=== PATIENT | male | born 1945 | race African-American/Black ===

== ENCOUNTER 2022-04-04 10:07 | Inpatient (IN) | payer MEDICARE, MEDICAID ==
[~2022-04-04] VITALS: Ht 172.7 cm; Wt 127.9 kg
[2022-04-04 11:24] LABS: HEMATOCRIT. 36.6 % (42.0-52.0); HEMOGLOBIN. 12.2 g/dL (14.0-18.0); MEAN CORPUSCULAR HEMOGLOBIN 29.8 pg (28.0-32.0); MEAN CORPUSCULAR VOLUME 89.5 fL (80.0-94.0); MEAN PLATELET VOLUME 10.6 fl (7.4-10.4); PLATELET 299 x1000/uL (130-400); RED CELL DISTRIBUTION WIDTH 14.7 % (11.6-14.6)
[2022-04-04 11:30] LABS: CHLORIDE 107 mEq/L (98-107)
[2022-04-04 11:39] LABS: CREATINE KINASE 411 IU/L (39-308)
[2022-04-04 11:45] LABS: PLATELET ESTIMATE NORMAL
[2022-04-04] MEDS ORDERED: ASPIRIN 325MG EC TABLET PO NR (13:00)
[2022-04-04] MEDS ORDERED: NIFEDIPINE XL 60MG TAB PO ONE (13:15)
[2022-04-04] MEDS ORDERED: LOSARTAN POTASSIUM 50 MG TABLET PO ONE (13:15)
[2022-04-04] MEDS ORDERED: IPRATROPIUM/ALBUTEROL 0.5-3(2.5)MG/3ML NEB NEB PRN (16:30)
[2022-04-04] MEDS ORDERED: DIPHENHYDRAMINE 50MG/ML VIAL IV PRN (16:30)
[2022-04-04] MEDS ORDERED: ONDANSETRON HCL 4MG/2ML INJ IV PRN (16:30)
[2022-04-04] MEDS ORDERED: MORPHINE SULFATE 2 MG/ML CPJ (NOT FOR IM USE) IV PRN (16:30)
[2022-04-04] MEDS ORDERED: ACETAMINOPHEN 650MG SUPP PR PRN (16:30)
[2022-04-04] MEDS ORDERED: LORAZEPAM 2MG/ML CPJ IV PRN (16:30)
[2022-04-04] MEDS ORDERED: ONDANSETRON HCL 4MG/2ML INJ IV NR (16:45)
[2022-04-04] MEDS ORDERED: HYDRALAZINE 20MG/ML VIAL IV NR (16:45)
[2022-04-04 18:12] LABS: PROTHROMBIN TIME 10.5 sec (9.6-11.0)
[2022-04-04] MEDS: FAMOTIDINE 20MG/2ML VIAL IV SCH (18:24)
[2022-04-04] MEDS: AMLODIPINE 10MG TABLET PO SCH (18:26)
[2022-04-04] MEDS: ENOXAPARIN 40MG/0.4ML SYR SUBCUT SCH (18:27)
[2022-04-04 18:51] VITALS: BP 157/90
[2022-04-04] MEDS ORDERED: *PATIENT'S OWN MEDICATION STORAGE XX SCH (19:30)
[2022-04-04] MEDS ORDERED: LOSA50TA41 PO (19:49)
[2022-04-04] MEDS ORDERED: ATOR-2 PO (19:49)
[2022-04-04] MEDS ORDERED: HYDR-4001 PO (19:49)
[2022-04-04] MEDS ORDERED: TAMS-11 PO (19:49)
[2022-04-04] MEDS ORDERED: DOCU100T PO (19:49)
[2022-04-04] MEDS ORDERED: FERR325T6 PO (19:49)
[2022-04-04] MEDS ORDERED: NIFE-32 PO (19:49)
[2022-04-04 20:00] VITALS: BP 145/81
[2022-04-04] MEDS: METOPROLOL TARTRATE 25MG TABLET PO SCH (21:00)
[2022-04-04] MEDS: PIPERACILLIN/TAZOBACTAM 3.375 G in DEXTROSE 5% WATER 50 ML IV SCH (21:19)
[2022-04-04] MEDS: DEXT 5%/0.45% NACL 1000ML 1,000 ML IV SCH (21:21)
[2022-04-05] VITALS: BP 163/70
[2022-04-05 00:05] LABS: CREATINE KINASE MB FRACTION 1.5 ng/mL (0.5-3.6)
[2022-04-05 04:00] VITALS: BP 150/76
[2022-04-05] MEDS: DEXT 5%/0.45% NACL 1000ML 1,000 ML IV SCH ×2 (05:50→21:14)
[2022-04-05 08:00] VITALS: BP 154/73
[2022-04-05 08:15] LABS: BASOPHILS % 0.4 % (0.0-2.0); EOSINOPHILS % 0.2 % (0.0-5.0); HEMATOCRIT. 35.3 % (42.0-52.0); HEMOGLOBIN. 11.7 g/dL (14.0-18.0); LYMPHOCYTES % 9.7 % (20.0-50.0); MEAN CORPUSCULAR HEMOGLOBIN 29.8 pg (28.0-32.0); MEAN CORPUSCULAR VOLUME 89.8 fL (80.0-94.0); MEAN PLATELET VOLUME 10.5 fl (7.4-10.4); MONOCYTES % 8.1 % (2.0-8.0); NEUTROPHILS % 81.6 % (40.0-76.0); PLATELET 259 x1000/uL (130-400); RED BLOOD CELL COUNT 3.93 mill/uL (4.7-6.1); RED CELL DISTRIBUTION WIDTH 14.7 % (11.6-14.6)
[2022-04-05] MEDS: AMLODIPINE 10MG TABLET PO SCH (09:00)
[2022-04-05] MEDS: METOPROLOL TARTRATE 25MG TABLET PO SCH ×2 (09:00→21:00)
[2022-04-05] MEDS ORDERED: LOSARTAN POTASSIUM 50 MG TABLET PO SCH (09:00)
[2022-04-05 09:01] LABS: CHLORIDE 110 mEq/L (98-107)
[2022-04-05 09:22] LABS: CREATINE KINASE 250 IU/L (39-308); CREATINE KINASE MB FRACTION 1.1 ng/mL (0.5-3.6); HDL CHOLESTEROL 67 mg/dL (40-59); LDL CHOLESTEROL 134 mg/dL (5-100)
[2022-04-05] MEDS: PIPERACILLIN/TAZOBACTAM 3.375 G in DEXTROSE 5% WATER 50 ML IV SCH ×2 (09:48→21:14)
[2022-04-05] MEDS: FAMOTIDINE 20MG/2ML VIAL IV SCH (09:48)
[2022-04-05 12:00] VITALS: BP 161/84
[2022-04-05] MEDS ORDERED: VANCOMYCIN 1500MG in DEXTROSE 5% WATER 250ML IV NR (15:00)
[2022-04-05 15:21] LABS: CLARITY URINE CLOUDY (CLEAR); COLOR URINE ORANGE (YELLOW); KETONES URINE NEGATIVE (NEGATIVE); LEUKOCYTE ESTERASE URINE 1+ (NEGATIVE); NITRITE URINE NEGATIVE (NEGATIVE); OCCULT BLOOD URINE 3+ (NEGATIVE); PROTEIN URINE 4+ (NEGATIVE); SPECIFIC GRAVITY URINE 1.025 (1.005-1.030); UROBILINOGEN URINE 0.2 E.U./dL (0.2-1.0)
[2022-04-05 16:00] VITALS: BP 186/88
[2022-04-05] MEDS: ENOXAPARIN 40MG/0.4ML SYR SUBCUT SCH (16:48)
[2022-04-05] MEDS: HYDRALAZINE 20MG/ML VIAL IV PRN (16:48)
[2022-04-05 19:01] LABS: CLARITY URINE CLOUDY (CLEAR); COLOR URINE ORANGE (YELLOW); KETONES URINE NEGATIVE (NEGATIVE); LEUKOCYTE ESTERASE URINE 1+ (NEGATIVE); NITRITE URINE NEGATIVE (NEGATIVE); OCCULT BLOOD URINE 3+ (NEGATIVE); PROTEIN URINE 4+ (NEGATIVE); SPECIFIC GRAVITY URINE 1.025 (1.005-1.030); UROBILINOGEN URINE 0.2 E.U./dL (0.2-1.0)
[2022-04-05 20:00] VITALS: BP 184/75
[2022-04-05] MEDS: ATORVASTATIN CALCIUM 20MG TABLET PO SCH (21:00)
[2022-04-06] VITALS: BP 150/64
[2022-04-06 04:00] VITALS: BP 171/83
[2022-04-06] MEDS: HYDRALAZINE 20MG/ML VIAL IV PRN (06:15)
[2022-04-06 08:00] VITALS: BP 177/70
[2022-04-06 08:05] LABS: BASOPHILS % 0.7 % (0.0-2.0); EOSINOPHILS % 1.3 % (0.0-5.0); HEMATOCRIT. 35.3 % (42.0-52.0); HEMOGLOBIN. 11.3 g/dL (14.0-18.0); LYMPHOCYTES % 15.7 % (20.0-50.0); MEAN CORPUSCULAR VOLUME 90.7 fL (80.0-94.0); MEAN PLATELET VOLUME 10.9 fl (7.4-10.4); MONOCYTES % 9.7 % (2.0-8.0); NEUTROPHILS % 72.6 % (40.0-76.0); PLATELET 244 x1000/uL (130-400); RED BLOOD CELL COUNT 3.89 mill/uL (4.7-6.1); RED CELL DISTRIBUTION WIDTH 14.9 % (11.6-14.6)
[2022-04-06] MEDS: FAMOTIDINE 20MG/2ML VIAL IV SCH (08:27)
[2022-04-06] MEDS: AMLODIPINE 10MG TABLET PO SCH (08:27)
[2022-04-06] MEDS: METOPROLOL TARTRATE 25MG TABLET PO SCH (08:27)
[2022-04-06] MEDS: DEXT 5%/0.45% NACL 1000ML 1,000 ML IV SCH ×2 (08:28→21:50)
[2022-04-06] MEDS: PIPERACILLIN/TAZOBACTAM 3.375 G in DEXTROSE 5% WATER 50 ML IV SCH ×2 (08:29→21:44)
[2022-04-06] MEDS ORDERED: LOSARTAN POTASSIUM 50 MG TABLET PO SCH (09:00)
[2022-04-06] MEDS ORDERED: HYDRALAZINE HCL 100MG TABLET PO NR (11:45)
[2022-04-06 12:00] VITALS: BP 144/70
[2022-04-06] MEDS ORDERED: HYDRALAZINE HCL 25MG TABLET PO SCH (14:00)
[2022-04-06] MEDS: HYDRALAZINE HCL 25MG TABLET PO SCH ×2 (14:54→21:44)
[2022-04-06 16:00] VITALS: BP 153/48
[2022-04-06] MEDS: ENOXAPARIN 40MG/0.4ML SYR SUBCUT SCH (17:12)
[2022-04-06 20:00] VITALS: BP 144/58
[2022-04-06] MEDS: ATORVASTATIN CALCIUM 20MG TABLET PO SCH (21:44)
[2022-04-07] VITALS: BP 140/60
[2022-04-07 04:00] VITALS: BP 114/60
[2022-04-07] MEDS: HYDRALAZINE HCL 25MG TABLET PO SCH ×3 (05:24→22:03)
[2022-04-07 06:23] LABS: BASOPHILS % 0.5 % (0.0-2.0); EOSINOPHILS % 0.4 % (0.0-5.0); HEMATOCRIT. 36.7 % (42.0-52.0); MEAN CORPUSCULAR HEMOGLOBIN 29.6 pg (28.0-32.0); MEAN CORPUSCULAR VOLUME 90.3 fL (80.0-94.0); MEAN PLATELET VOLUME 10.8 fl (7.4-10.4); MONOCYTES % 11.1 % (2.0-8.0); PLATELET 279 x1000/uL (130-400); RED BLOOD CELL COUNT 4.06 mill/uL (4.7-6.1); RED CELL DISTRIBUTION WIDTH 14.6 % (11.6-14.6)
[2022-04-07 08:00] VITALS: BP 157/64
[2022-04-07] MEDS: PIPERACILLIN/TAZOBACTAM 3.375 G in DEXTROSE 5% WATER 50 ML IV SCH ×2 (08:34→22:03)
[2022-04-07] MEDS ORDERED: VANCOMYCIN 750MG PMX (XELLIA) 150 ML IV NR (09:00)
[2022-04-07] MEDS: FAMOTIDINE 20MG/2ML VIAL IV SCH (09:30)
[2022-04-07] MEDS: AMLODIPINE 10MG TABLET PO SCH (09:31)
[2022-04-07] MEDS: DEXT 5%/0.45% NACL 1000ML 1,000 ML IV SCH (10:42)
[2022-04-07 12:00] VITALS: BP 172/72
[2022-04-07 16:00] VITALS: BP 153/61
[2022-04-07] MEDS: ENOXAPARIN 40MG/0.4ML SYR SUBCUT SCH (16:41)
[2022-04-07 20:00] VITALS: BP 120/81
[2022-04-07] MEDS: ATORVASTATIN CALCIUM 20MG TABLET PO SCH (22:04)
[2022-04-07] MEDS: DOXAZOSIN MESYLATE 2MG TABLET PO SCH (22:04)
[2022-04-08] VITALS: BP 112/53
[2022-04-08 04:00] VITALS: BP 119/62
[2022-04-08 04:07] LABS: HIV SCREEN 4G Non Reactive (Non Reactive)
[2022-04-08] MEDS: HYDRALAZINE HCL 25MG TABLET PO SCH ×2 (05:25→14:00)
[2022-04-08 06:15] LABS: BASOPHILS % 0.3 % (0.0-2.0); EOSINOPHILS % 0.1 % (0.0-5.0); HEMATOCRIT. 32.8 % (42.0-52.0); HEMOGLOBIN. 10.9 g/dL (14.0-18.0); LYMPHOCYTES % 8.1 % (20.0-50.0); MEAN CORPUSCULAR HEMOGLOBIN 29.8 pg (28.0-32.0); MEAN CORPUSCULAR VOLUME 89.3 fL (80.0-94.0); MEAN PLATELET VOLUME 10.8 fl (7.4-10.4); MONOCYTES % 8.6 % (2.0-8.0); NEUTROPHILS % 82.9 % (40.0-76.0); PLATELET 234 x1000/uL (130-400); RED BLOOD CELL COUNT 3.67 mill/uL (4.7-6.1); RED CELL DISTRIBUTION WIDTH 14.8 % (11.6-14.6)
[2022-04-08 08:00] VITALS: BP 110/58
[2022-04-08] MEDS: AMLODIPINE 10MG TABLET PO SCH (09:00)
[2022-04-08 09:10] LABS: ANTI-NUCLEAR ANTIBODIES DIRECT Negative (Negative)
[2022-04-08] MEDS: FAMOTIDINE 20MG TABLET PO SCH (09:36)
[2022-04-08] MEDS: PIPERACILLIN/TAZOBACTAM 3.375 G in DEXTROSE 5% WATER 50 ML IV SCH ×2 (09:38→20:43)
[2022-04-08 12:00] VITALS: BP 109/59
[2022-04-08 13:07] LABS: A/G RATIO 0.6 (0.7-1.7); ALBUMIN 2.6 g/dL (2.9-4.4); ALPHA-1-GLOBULIN 0.4 g/dL (0.0-0.4); ALPHA-2-GLOBULIN 1.2 g/dL (0.4-1.0); BETA GLOBULIN 1.1 g/dL (0.7-1.3); GAMMA GLOBULINS 1.5 g/dL (0.4-1.8); GLOBULIN TOTAL 4.1 g/dL (2.2-3.9); M-SPIKE 0.8 g/dL (Not Observed); TOTAL PROTEIN SERUM 6.7 g/dL (6.0-8.5)
[2022-04-08 16:00] VITALS: BP 117/79
[2022-04-08 20:00] VITALS: BP 130/61
[2022-04-08] MEDS: DEXT 5%/0.45% NACL 1000ML 1,000 ML IV SCH (20:43)
[2022-04-08] MEDS: DOXAZOSIN MESYLATE 2MG TABLET PO SCH (20:44)
[2022-04-08] MEDS: ATORVASTATIN CALCIUM 20MG TABLET PO SCH (20:44)
[2022-04-08] MEDS: HYDRALAZINE HCL 100MG TABLET PO SCH (23:03)
[2022-04-09] VITALS: BP 145/78
[2022-04-09 04:00] VITALS: BP 139/64
[2022-04-09] MEDS: HYDRALAZINE HCL 100MG TABLET PO SCH ×3 (05:28→20:50)
[2022-04-09 07:08] LABS: BASOPHILS % 0.7 % (0.0-2.0); EOSINOPHILS % 1.6 % (0.0-5.0); HEMATOCRIT. 29.6 % (42.0-52.0); HEMOGLOBIN. 9.8 g/dL (14.0-18.0); LYMPHOCYTES % 13.9 % (20.0-50.0); MEAN CORPUSCULAR HEMOGLOBIN 29.5 pg (28.0-32.0); MEAN CORPUSCULAR VOLUME 89.6 fL (80.0-94.0); MEAN PLATELET VOLUME 10.7 fl (7.4-10.4); MONOCYTES % 13.5 % (2.0-8.0); NEUTROPHILS % 70.3 % (40.0-76.0); PLATELET 216 x1000/uL (130-400)
[2022-04-09 08:00] VITALS: BP 100/64
[2022-04-09] MEDS: AMLODIPINE 10MG TABLET PO SCH (09:04)
[2022-04-09] MEDS: FAMOTIDINE 20MG TABLET PO SCH (09:04)
[2022-04-09 09:06] LABS: GLOMERULAR BASEMENT MEMB AB 4 units (0-20)
[2022-04-09] MEDS: PIPERACILLIN/TAZOBACTAM 3.375 G in DEXTROSE 5% WATER 50 ML IV SCH ×2 (10:50→20:57)
[2022-04-09 12:00] VITALS: BP 113/70
[2022-04-09] MEDS: HYDRALAZINE 20MG/ML VIAL IV PRN ×3 (14:52→15:13)
[2022-04-09 15:09] LABS: ANTI-MYELOPEROXIDASE AB < 9.0 U/mL (0.0-9.0); ANTI-PROTEINASE 3 ABS < 3.5 U/mL (0.0-3.5)
[2022-04-09 16:00] VITALS: BP 118/82
[2022-04-09] MEDS: DEXT 5%/0.45% NACL 1000ML 1,000 ML IV SCH (16:30)
[2022-04-09 20:00] VITALS: BP 117/48
[2022-04-09] MEDS: ATORVASTATIN CALCIUM 20MG TABLET PO SCH (20:57)
[2022-04-09] MEDS: DOXAZOSIN MESYLATE 2MG TABLET PO SCH (20:58)
[2022-04-09] MEDS: AMOXICILLIN/POTASSIUM CLAVULANATE 500/125MG TAB PO SCH (20:58)
[2022-04-10] VITALS: BP 128/56
[2022-04-10 04:00] VITALS: BP 140/62
[2022-04-10] MEDS: HYDRALAZINE HCL 100MG TABLET PO SCH ×3 (05:50→22:02)
[2022-04-10] MEDS: DEXT 5%/0.45% NACL 1000ML 1,000 ML IV SCH ×2 (05:50→17:57)
[2022-04-10 07:15] LABS: HEMATOCRIT. 27.9 % (42.0-52.0); HEMOGLOBIN. 9.4 g/dL (14.0-18.0); MEAN CORPUSCULAR HEMOGLOBIN 29.8 pg (28.0-32.0); MEAN CORPUSCULAR VOLUME 88.5 fL (80.0-94.0); MEAN PLATELET VOLUME 10.5 fl (7.4-10.4); PLATELET 227 x1000/uL (130-400); RED BLOOD CELL COUNT 3.15 mill/uL (4.7-6.1); RED CELL DISTRIBUTION WIDTH 14.9 % (11.6-14.6)
[2022-04-10 08:00] VITALS: BP 120/98
[2022-04-10 08:12] LABS: PLATELET ESTIMATE NORMAL
[2022-04-10] MEDS: AMLODIPINE 10MG TABLET PO SCH (10:05)
[2022-04-10] MEDS: FAMOTIDINE 20MG TABLET PO SCH (10:05)
[2022-04-10] MEDS: AMOXICILLIN/POTASSIUM CLAVULANATE 500/125MG TAB PO SCH (11:44)
[2022-04-10 12:00] VITALS: BP 153/56
[2022-04-10] MEDS ORDERED: LIDOCAINE HCL 1% 10 MG/ML 10ML VIAL ONE (12:32)
[2022-04-10 12:59] LABS: HEPATITIS B SURFACE ANTIGEN NEGATIVE
[2022-04-10 13:10] LABS: CYTOPLASMIC C-ANCA <1:20 titer (Neg:<1:20); PERINUCLEAR P-ANCA <1:20 titer (Neg:<1:20)
[2022-04-10 16:00] VITALS: BP 144/66
[2022-04-10] MEDS: ASPIRIN 81MG TABLET PO SCH (17:56)
[2022-04-10 20:00] VITALS: BP 132/69
[2022-04-10] MEDS: ATORVASTATIN CALCIUM 20MG TABLET PO SCH (22:03)
[2022-04-10] MEDS: DOXAZOSIN MESYLATE 2MG TABLET PO SCH (22:03)
[2022-04-10] MEDS ORDERED: CEFTRIAXONE 2 G in DEXTROSE 5% WATER 50 ML IV SCH (22:30)
[2022-04-10] MEDS ORDERED: VANCOMYCIN 1GM PMX (XELLIA) 200 ML IV NR (23:00)
[2022-04-11] VITALS: BP 157/61
[2022-04-11 04:00] VITALS: BP 126/70
[2022-04-11] MEDS: HYDRALAZINE HCL 100MG TABLET PO SCH ×3 (06:06→21:49)
[2022-04-11 06:27] LABS: BASOPHILS % 0.4 % (0.0-2.0); EOSINOPHILS % 1.6 % (0.0-5.0); HEMATOCRIT. 29.2 % (42.0-52.0); HEMOGLOBIN. 9.7 g/dL (14.0-18.0); LYMPHOCYTES % 11.8 % (20.0-50.0); MEAN CORPUSCULAR HEMOGLOBIN 29.2 pg (28.0-32.0); MEAN CORPUSCULAR VOLUME 88.2 fL (80.0-94.0); MEAN PLATELET VOLUME 10.3 fl (7.4-10.4); MONOCYTES % 14.4 % (2.0-8.0); NEUTROPHILS % 71.8 % (40.0-76.0); PLATELET 204 x1000/uL (130-400); RED BLOOD CELL COUNT 3.31 mill/uL (4.7-6.1); RED CELL DISTRIBUTION WIDTH 14.4 % (11.6-14.6)
[2022-04-11 08:00] VITALS: BP 134/60
[2022-04-11] MEDS: ASPIRIN 81MG TABLET PO SCH (09:00)
[2022-04-11] MEDS: FAMOTIDINE 20MG TABLET PO SCH (09:00)
[2022-04-11] MEDS: AMLODIPINE 10MG TABLET PO SCH (09:00)
[2022-04-11 12:00] VITALS: BP 127/63
[2022-04-11 16:00] VITALS: BP 138/64
[2022-04-11 20:00] VITALS: BP 159/71
[2022-04-11] MEDS: CEFTRIAXONE 2 G in DEXTROSE 5% WATER 50 ML IV SCH (21:46)
[2022-04-11] MEDS: DOXAZOSIN MESYLATE 2MG TABLET PO SCH (21:49)
[2022-04-11] MEDS: ATORVASTATIN CALCIUM 20MG TABLET PO SCH (21:53)
[2022-04-12] VITALS: BP 127/50
[2022-04-12 04:00] VITALS: BP_SYST 151; BP_SYST 159; BP_DIAS 59; BP_DIAS 67
[2022-04-12] MEDS: HYDRALAZINE HCL 100MG TABLET PO SCH ×2 (06:15→14:58)
[2022-04-12 08:00] VITALS: BP 94/60
[2022-04-12 08:41] LABS: HEMATOCRIT. 27.4 % (42.0-52.0); MEAN CORPUSCULAR HEMOGLOBIN 29.3 pg (28.0-32.0); MEAN CORPUSCULAR VOLUME 89.1 fL (80.0-94.0); MEAN PLATELET VOLUME 10.4 fl (7.4-10.4); PLATELET 209 x1000/uL (130-400); RED BLOOD CELL COUNT 3.07 mill/uL (4.7-6.1)
[2022-04-12] MEDS: FAMOTIDINE 20MG TABLET PO SCH (09:41)
[2022-04-12] MEDS: ASPIRIN 81MG TABLET PO SCH (09:41)
[2022-04-12] MEDS: AMLODIPINE 10MG TABLET PO SCH (09:46)
[2022-04-12 10:04] LABS: PLATELET ESTIMATE NORMAL
[2022-04-12 12:00] VITALS: BP 178/75
[2022-04-12] MEDS: DEXT 5%/0.45% NACL 1000ML 1,000 ML IV SCH (15:39)
[2022-04-12 16:00] VITALS: BP 142/100
[2022-04-12] MEDS ORDERED: VANCOMYCIN 750MG PMX (XELLIA) 150 ML IV SCH (17:00)
[2022-04-12 20:00] VITALS: BP 99/81
[2022-04-12] MEDS: CEFTRIAXONE 2 G in DEXTROSE 5% WATER 50 ML IV SCH (20:59)
[2022-04-12] MEDS: ATORVASTATIN CALCIUM 20MG TABLET PO SCH (21:07)
[2022-04-13] VITALS: BP 144/72
[2022-04-13] MEDS: DOXAZOSIN MESYLATE 2MG TABLET PO SCH ×2 (01:04→21:49)
[2022-04-13] MEDS: HYDRALAZINE HCL 100MG TABLET PO SCH ×4 (01:04→21:49)
[2022-04-13 04:00] VITALS: BP 149/70
[2022-04-13 08:00] VITALS: BP 137/61
[2022-04-13 08:28] LABS: HEMATOCRIT. 25.6 % (42.0-52.0); HEMOGLOBIN. 8.5 g/dL (14.0-18.0); MEAN CORPUSCULAR HEMOGLOBIN 29.7 pg (28.0-32.0); MEAN CORPUSCULAR VOLUME 89.5 fL (80.0-94.0); PLATELET 205 x1000/uL (130-400); RED BLOOD CELL COUNT 2.86 mill/uL (4.7-6.1); RED CELL DISTRIBUTION WIDTH 14.9 % (11.6-14.6)
[2022-04-13] MEDS: AMLODIPINE 10MG TABLET PO SCH (08:55)
[2022-04-13] MEDS: ASPIRIN 81MG TABLET PO SCH (08:55)
[2022-04-13] MEDS: FAMOTIDINE 20MG TABLET PO SCH (08:55)
[2022-04-13 09:10] LABS: PLATELET ESTIMATE NORMAL
[2022-04-13 12:00] VITALS: BP 134/58
[2022-04-13] MEDS: DEXT 5%/0.45% NACL 1000ML 1,000 ML IV SCH (13:04)
[2022-04-13 16:00] VITALS: BP 133/60
[2022-04-13] MEDS ORDERED: NA PHOS,M-B/NA PHOS,DI-BA ENEMA 118ML PR PRN (18:00)
[2022-04-13] MEDS ORDERED: BISACODYL 5MG TABLET PO PRN (18:00)
[2022-04-13] MEDS: DOCUSATE SODIUM 100MG CAPSULE PO SCH (18:33)
[2022-04-13 20:00] VITALS: BP 152/75
[2022-04-13] MEDS: CEFTRIAXONE 2 G in DEXTROSE 5% WATER 50 ML IV SCH (21:47)
[2022-04-13] MEDS: ATORVASTATIN CALCIUM 20MG TABLET PO SCH (21:48)
[2022-04-14] VITALS: BP 121/62
[2022-04-14] MEDS: DEXT 5%/0.45% NACL 1000ML 1,000 ML IV SCH ×2 (05:35→16:32)
[2022-04-14] MEDS: HYDRALAZINE HCL 100MG TABLET PO SCH ×3 (05:35→21:02)
[2022-04-14 06:38] LABS: BASOPHILS % 0.7 % (0.0-2.0); EOSINOPHILS % 2.7 % (0.0-5.0); HEMATOCRIT. 26.6 % (42.0-52.0); HEMOGLOBIN. 8.7 g/dL (14.0-18.0); LYMPHOCYTES % 19.4 % (20.0-50.0); MEAN CORPUSCULAR HEMOGLOBIN 29.3 pg (28.0-32.0); MEAN CORPUSCULAR VOLUME 89.4 fL (80.0-94.0); MEAN PLATELET VOLUME 9.8 fl (7.4-10.4); MONOCYTES % 13.2 % (2.0-8.0); PLATELET 208 x1000/uL (130-400); RED BLOOD CELL COUNT 2.97 mill/uL (4.7-6.1)
[2022-04-14 08:00] VITALS: BP 139/67
[2022-04-14] MEDS: ASPIRIN 81MG TABLET PO SCH (08:02)
[2022-04-14] MEDS: DOCUSATE SODIUM 100MG CAPSULE PO SCH ×2 (08:02→16:32)
[2022-04-14] MEDS: AMLODIPINE 10MG TABLET PO SCH (08:02)
[2022-04-14] MEDS: FAMOTIDINE 20MG TABLET PO SCH (08:02)
[2022-04-14 12:00] VITALS: BP 157/67
[2022-04-14 16:00] VITALS: BP 132/75
[2022-04-14 20:00] VITALS: BP 151/77
[2022-04-14] MEDS: CEFTRIAXONE 2 G in DEXTROSE 5% WATER 50 ML IV SCH (20:11)
[2022-04-14] MEDS: ATORVASTATIN CALCIUM 20MG TABLET PO SCH (21:01)
[2022-04-14] MEDS: DOXAZOSIN MESYLATE 2MG TABLET PO SCH (21:02)
[2022-04-15] VITALS: BP 135/67
[2022-04-15 04:00] VITALS: BP 149/73
[2022-04-15] MEDS: DEXT 5%/0.45% NACL 1000ML 1,000 ML IV SCH ×2 (05:44→23:19)
[2022-04-15] MEDS: HYDRALAZINE HCL 100MG TABLET PO SCH ×3 (05:46→21:41)
[2022-04-15 08:00] VITALS: BP 129/55
[2022-04-15] MEDS: DOCUSATE SODIUM 100MG CAPSULE PO SCH ×2 (09:05→16:20)
[2022-04-15] MEDS: FAMOTIDINE 20MG TABLET PO SCH (09:05)
[2022-04-15] MEDS: AMLODIPINE 10MG TABLET PO SCH (09:05)
[2022-04-15] MEDS: ASPIRIN 81MG TABLET PO SCH (09:05)
[2022-04-15 09:38] LABS: BASOPHILS % 0.7 % (0.0-2.0); EOSINOPHILS % 3.5 % (0.0-5.0); HEMATOCRIT. 25.7 % (42.0-52.0); HEMOGLOBIN. 8.4 g/dL (14.0-18.0); LYMPHOCYTES % 16.5 % (20.0-50.0); MEAN CORPUSCULAR HEMOGLOBIN 29.3 pg (28.0-32.0); MEAN CORPUSCULAR VOLUME 89.4 fL (80.0-94.0); MEAN PLATELET VOLUME 9.4 fl (7.4-10.4); MONOCYTES % 14.3 % (2.0-8.0); PLATELET 216 x1000/uL (130-400); RED BLOOD CELL COUNT 2.87 mill/uL (4.7-6.1); RED CELL DISTRIBUTION WIDTH 14.8 % (11.6-14.6)
[2022-04-15 12:00] VITALS: BP 130/56
[2022-04-15 16:00] VITALS: BP 128/54
[2022-04-15 20:00] VITALS: BP 142/72
[2022-04-15] MEDS: DOXAZOSIN MESYLATE 2MG TABLET PO SCH (20:50)
[2022-04-15] MEDS: CEFTRIAXONE 2 G in DEXTROSE 5% WATER 50 ML IV SCH (20:50)
[2022-04-15] MEDS: ATORVASTATIN CALCIUM 20MG TABLET PO SCH (20:51)
[2022-04-15] MEDS ORDERED: VANCOMYCIN 750 MG in DEXT 5% WATER 250 ML IV NR (21:00)
[2022-04-16] VITALS (15 sets, daily range): BP systolic 125–188; BP diastolic 68–93
[2022-04-16] MEDS: HYDRALAZINE HCL 100MG TABLET PO SCH ×4 (05:17→21:15)
[2022-04-16] MEDS ORDERED: LIDOCAINE HCL 1% 10 MG/ML 10ML VIAL ONE ×3 (07:16→14:10)
[2022-04-16] MEDS ORDERED: FENTANYL CITRATE/PF 50MCG/ML 2ML VIAL ONE ×2 (07:17→11:49)
[2022-04-16 08:37] LABS: BASOPHILS % 0.8 % (0.0-2.0); EOSINOPHILS % 2.3 % (0.0-5.0); HEMATOCRIT. 26.7 % (42.0-52.0); HEMOGLOBIN. 8.9 g/dL (14.0-18.0); LYMPHOCYTES % 14.4 % (20.0-50.0); MEAN CORPUSCULAR HEMOGLOBIN 29.5 pg (28.0-32.0); MEAN CORPUSCULAR VOLUME 88.2 fL (80.0-94.0); MEAN PLATELET VOLUME 9.4 fl (7.4-10.4); MONOCYTES % 12.3 % (2.0-8.0); NEUTROPHILS % 70.2 % (40.0-76.0); PLATELET 257 x1000/uL (130-400); RED BLOOD CELL COUNT 3.03 mill/uL (4.7-6.1); RED CELL DISTRIBUTION WIDTH 14.7 % (11.6-14.6)
[2022-04-16] MEDS: AMLODIPINE 10MG TABLET PO SCH (09:02)
[2022-04-16] MEDS: FAMOTIDINE 20MG TABLET PO SCH (09:02)
[2022-04-16] MEDS: DOCUSATE SODIUM 100MG CAPSULE PO SCH ×2 (09:02→17:34)
[2022-04-16] MEDS ORDERED: HEPARIN 1000 UNITS/ML 10ML ONE (12:00)
[2022-04-16] MEDS ORDERED: FENTANYL CITRATE/PF 50MCG/ML 2ML VIAL IV ONE (12:15)
[2022-04-16] MEDS ORDERED: CARVEDILOL 3.125 MG TABLET PO NR (15:45)
[2022-04-16] MEDS: HYDROCODONE/ACETAMINOPHEN 5/325MG TABLET PO PRN (17:35)
[2022-04-16] MEDS: DOXAZOSIN MESYLATE 2MG TABLET PO SCH (20:18)
[2022-04-16] MEDS: ATORVASTATIN CALCIUM 20MG TABLET PO SCH (20:18)
[2022-04-16] MEDS: CEFTRIAXONE 2 G in DEXTROSE 5% WATER 50 ML IV SCH (20:18)
[2022-04-16] MEDS ORDERED: NALOXONE HCL 0.4MG/ML VIAL IV PRN (22:00)
[2022-04-17] VITALS: BP 132/64
[2022-04-17] MEDS: DEXT 5%/0.45% NACL 1000ML 1,000 ML IV SCH ×2 (00:43→23:43)
[2022-04-17 04:00] VITALS: BP 146/81
[2022-04-17] MEDS: HYDRALAZINE HCL 100MG TABLET PO SCH ×2 (05:20→15:25)
[2022-04-17 08:00] VITALS: BP 153/63
[2022-04-17] MEDS: DOCUSATE SODIUM 100MG CAPSULE PO SCH ×2 (08:52→17:31)
[2022-04-17] MEDS: AMLODIPINE 10MG TABLET PO SCH (08:53)
[2022-04-17] MEDS: CARVEDILOL 3.125 MG TABLET PO SCH ×2 (08:53→17:31)
[2022-04-17] MEDS: FAMOTIDINE 20MG TABLET PO SCH (08:53)
[2022-04-17 09:16] LABS: BASOPHILS % 0.7 % (0.0-2.0); EOSINOPHILS % 2.3 % (0.0-5.0); HEMOGLOBIN. 8.9 g/dL (14.0-18.0); LYMPHOCYTES % 9.1 % (20.0-50.0); MEAN CORPUSCULAR HEMOGLOBIN 29.5 pg (28.0-32.0); MEAN PLATELET VOLUME 9.8 fl (7.4-10.4); NEUTROPHILS % 76.9 % (40.0-76.0); PLATELET 273 x1000/uL (130-400); RED BLOOD CELL COUNT 3.03 mill/uL (4.7-6.1); RED CELL DISTRIBUTION WIDTH 14.7 % (11.6-14.6)
[2022-04-17 12:00] VITALS: BP 136/61
[2022-04-17] MEDS: HYDROCODONE/ACETAMINOPHEN 5/325MG TABLET PO PRN ×2 (12:30→21:04)
[2022-04-17 16:00] VITALS: BP 138/63
[2022-04-17] MEDS ORDERED: VANCOMYCIN 750MG PREMIX 150 ML IV NR (16:00)
[2022-04-17 17:46] LABS: CLARITY URINE BLOODY (CLEAR); COLOR URINE BLOODY (YELLOW)
[2022-04-17 17:53] LABS: SPECIFIC GRAVITY URINE 1.016 (1.005-1.030)
[2022-04-17 17:56] LABS: OCCULT BLOOD URINE 4+ (NEGATIVE)
[2022-04-17 18:16] LABS: CREATINE KINASE MB FRACTION 1.7 ng/mL (0.5-3.6)
[2022-04-17 18:36] LABS: HEPATITIS B SURFACE ANTIGEN NEGATIVE
[2022-04-17] MEDS: ATORVASTATIN CALCIUM 20MG TABLET PO SCH (21:04)
[2022-04-17] MEDS: CEFTRIAXONE 2 G in DEXTROSE 5% WATER 50 ML IV SCH (21:04)
[2022-04-17] MEDS: DOXAZOSIN MESYLATE 2MG TABLET PO SCH (23:42)
[2022-04-18] VITALS: BP 122/75
[2022-04-18] MEDS: HYDRALAZINE HCL 100MG TABLET PO SCH ×4 (00:59→20:50)
[2022-04-18 04:00] VITALS: BP 109/60
[2022-04-18] MEDS: HYDROCODONE/ACETAMINOPHEN 5/325MG TABLET PO PRN ×2 (05:34→18:03)
[2022-04-18 07:47] LABS: BASOPHILS % 0.4 % (0.0-2.0); HEMATOCRIT. 24.8 % (42.0-52.0); HEMOGLOBIN. 8.3 g/dL (14.0-18.0); LYMPHOCYTES % 8.2 % (20.0-50.0); MEAN CORPUSCULAR HEMOGLOBIN 29.7 pg (28.0-32.0); MONOCYTES % 10.5 % (2.0-8.0); NEUTROPHILS % 78.9 % (40.0-76.0); PLATELET 244 x1000/uL (130-400); RED BLOOD CELL COUNT 2.79 mill/uL (4.7-6.1); RED CELL DISTRIBUTION WIDTH 14.8 % (11.6-14.6)
[2022-04-18 08:00] VITALS: BP 133/83
[2022-04-18] MEDS: AMLODIPINE 10MG TABLET PO SCH (08:54)
[2022-04-18] MEDS: FAMOTIDINE 20MG TABLET PO SCH (08:54)
[2022-04-18] MEDS: CARVEDILOL 3.125 MG TABLET PO SCH ×2 (08:54→16:38)
[2022-04-18] MEDS: DOCUSATE SODIUM 100MG CAPSULE PO SCH ×2 (08:55→16:37)
[2022-04-18 12:00] VITALS: BP 118/50
[2022-04-18 16:00] VITALS: BP 125/76
[2022-04-18 20:00] VITALS: BP 95/49
[2022-04-18] MEDS: ATORVASTATIN CALCIUM 20MG TABLET PO SCH (20:49)
[2022-04-18] MEDS: CEFTRIAXONE 2 G in DEXTROSE 5% WATER 50 ML IV SCH (20:49)
[2022-04-18] MEDS: ALLOPURINOL 100 MG TABLET PO SCH (20:49)
[2022-04-18] MEDS: DOXAZOSIN MESYLATE 2MG TABLET PO SCH (20:50)
[2022-04-18] MEDS: DEXT 5%/0.45% NACL 1000ML 1,000 ML IV SCH (20:51)
[2022-04-19] VITALS (9 sets, daily range): BP systolic 109–150; BP diastolic 54–87
[2022-04-19] MEDS: HYDRALAZINE HCL 100MG TABLET PO SCH ×3 (05:01→21:07)
[2022-04-19 07:49] LABS: BASOPHILS % 0.8 % (0.0-2.0); HEMATOCRIT. 22.6 % (42.0-52.0); HEMOGLOBIN. 7.5 g/dL (14.0-18.0); LYMPHOCYTES % 15.5 % (20.0-50.0); MEAN CORPUSCULAR HEMOGLOBIN 29.3 pg (28.0-32.0); MEAN PLATELET VOLUME 8.7 fl (7.4-10.4); MONOCYTES % 14.5 % (2.0-8.0); NEUTROPHILS % 66.2 % (40.0-76.0); PLATELET 240 x1000/uL (130-400); RED BLOOD CELL COUNT 2.54 mill/uL (4.7-6.1); RED CELL DISTRIBUTION WIDTH 14.7 % (11.6-14.6)
[2022-04-19] MEDS: AMLODIPINE 10MG TABLET PO SCH (09:00)
[2022-04-19] MEDS: CARVEDILOL 3.125 MG TABLET PO SCH ×2 (09:00→17:23)
[2022-04-19] MEDS: DOCUSATE SODIUM 100MG CAPSULE PO SCH ×2 (09:20→17:23)
[2022-04-19] MEDS: ALLOPURINOL 100 MG TABLET PO SCH (09:20)
[2022-04-19] MEDS: FAMOTIDINE 20MG TABLET PO SCH (09:20)
[2022-04-19] MEDS: CEFTRIAXONE 2 G in DEXTROSE 5% WATER 50 ML IV SCH (20:00)
[2022-04-19] MEDS: EPOETIN ALFA 10000UNITS/ML VIAL SUBCUT SCH (21:00)
[2022-04-19] MEDS: DOXAZOSIN MESYLATE 2MG TABLET PO SCH (21:07)
[2022-04-19] MEDS: ATORVASTATIN CALCIUM 20MG TABLET PO SCH (21:07)
[2022-04-19] MEDS ORDERED: VANCOMYCIN 750MG PREMIX 150 ML IV NR (22:00)
[2022-04-20] VITALS: BP 160/64
[2022-04-20] MEDS: DEXT 5%/0.45% NACL 1000ML 1,000 ML IV SCH
[2022-04-20 04:00] VITALS: BP 155/80
[2022-04-20] MEDS: HYDRALAZINE HCL 100MG TABLET PO SCH ×3 (05:56→20:36)
[2022-04-20 07:28] LABS: BASOPHILS % 0.8 % (0.0-2.0); HEMOGLOBIN. 8.7 g/dL (14.0-18.0); LYMPHOCYTES % 15.8 % (20.0-50.0); MEAN CORPUSCULAR HEMOGLOBIN 29.6 pg (28.0-32.0); MEAN CORPUSCULAR VOLUME 88.7 fL (80.0-94.0); MEAN PLATELET VOLUME 8.7 fl (7.4-10.4); MONOCYTES % 14.8 % (2.0-8.0); NEUTROPHILS % 65.6 % (40.0-76.0); PLATELET 247 x1000/uL (130-400); RED BLOOD CELL COUNT 2.93 mill/uL (4.7-6.1)
[2022-04-20] MEDS: FAMOTIDINE 20MG TABLET PO SCH (09:46)
[2022-04-20] MEDS: DOCUSATE SODIUM 100MG CAPSULE PO SCH ×2 (09:46→17:00)
[2022-04-20] MEDS: ALLOPURINOL 100 MG TABLET PO SCH (09:46)
[2022-04-20] MEDS: AMLODIPINE 10MG TABLET PO SCH (09:50)
[2022-04-20] MEDS: CARVEDILOL 3.125 MG TABLET PO SCH ×2 (09:51→18:45)
[2022-04-20] MEDS: HYDROCODONE/ACETAMINOPHEN 5/325MG TABLET PO PRN (09:52)
[2022-04-20] MEDS ORDERED: LEVOFLOXACIN 500MG PREMIX 100 ML IV NR (16:00)
[2022-04-20 20:00] VITALS: BP 118/70
[2022-04-20] MEDS: ATORVASTATIN CALCIUM 20MG TABLET PO SCH (20:36)
[2022-04-20] MEDS: DOXAZOSIN MESYLATE 2MG TABLET PO SCH (20:37)
[2022-04-21] VITALS: BP 130/88
[2022-04-21] MEDS: DEXT 5%/0.45% NACL 1000ML 1,000 ML IV SCH
[2022-04-21 04:00] VITALS: BP 130/73
[2022-04-21] MEDS: HYDRALAZINE HCL 100MG TABLET PO SCH ×3 (06:01→21:33)
[2022-04-21 08:00] VITALS: BP 144/62
[2022-04-21 08:07] LABS: BASOPHILS % 0.8 % (0.0-2.0); EOSINOPHILS % 2.6 % (0.0-5.0); HEMOGLOBIN. 8.6 g/dL (14.0-18.0); LYMPHOCYTES % 16.1 % (20.0-50.0); MEAN CORPUSCULAR HEMOGLOBIN 29.4 pg (28.0-32.0); MEAN CORPUSCULAR VOLUME 89.1 fL (80.0-94.0); MONOCYTES % 11.9 % (2.0-8.0); NEUTROPHILS % 68.6 % (40.0-76.0); PLATELET 250 x1000/uL (130-400); RED BLOOD CELL COUNT 2.92 mill/uL (4.7-6.1); RED CELL DISTRIBUTION WIDTH 15.4 % (11.6-14.6)
[2022-04-21 08:19] LABS: CHLORIDE 112 mEq/L (98-107)
[2022-04-21] MEDS: DOCUSATE SODIUM 100MG CAPSULE PO SCH ×2 (10:03→18:30)
[2022-04-21] MEDS: CARVEDILOL 3.125 MG TABLET PO SCH ×2 (10:03→17:00)
[2022-04-21] MEDS: FAMOTIDINE 20MG TABLET PO SCH (10:03)
[2022-04-21] MEDS: AMLODIPINE 10MG TABLET PO SCH (10:03)
[2022-04-21] MEDS: ALLOPURINOL 100 MG TABLET PO SCH (10:04)
[2022-04-21 12:00] VITALS: BP 137/67
[2022-04-21] MEDS ORDERED: VANCOMYCIN 500 MG in DEXT 5% WATER 100 ML IV SCH (12:00)
[2022-04-21 16:00] VITALS: BP 111/75
[2022-04-21 20:00] VITALS: BP 127/73
[2022-04-21] MEDS: DOXAZOSIN MESYLATE 2MG TABLET PO SCH (21:33)
[2022-04-21] MEDS: ATORVASTATIN CALCIUM 20MG TABLET PO SCH (21:34)
[2022-04-22] VITALS (7 sets, daily range): BP systolic 114–173; BP diastolic 60–83
[2022-04-22] MEDS: DEXT 5%/0.45% NACL 1000ML 1,000 ML IV SCH (00:09)
[2022-04-22] MEDS: HYDRALAZINE HCL 100MG TABLET PO SCH ×4 (06:30→21:03)
[2022-04-22 07:41] LABS: BASOPHILS % 0.7 % (0.0-2.0); EOSINOPHILS % 2.9 % (0.0-5.0); HEMATOCRIT. 25.7 % (42.0-52.0); HEMOGLOBIN. 8.4 g/dL (14.0-18.0); LYMPHOCYTES % 17.4 % (20.0-50.0); MEAN CORPUSCULAR HEMOGLOBIN 28.9 pg (28.0-32.0); MEAN CORPUSCULAR VOLUME 88.7 fL (80.0-94.0); MONOCYTES % 12.6 % (2.0-8.0); NEUTROPHILS % 66.4 % (40.0-76.0); PLATELET 260 x1000/uL (130-400); RED CELL DISTRIBUTION WIDTH 15.2 % (11.6-14.6)
[2022-04-22] MEDS: DOCUSATE SODIUM 100MG CAPSULE PO SCH ×2 (09:02→18:03)
[2022-04-22] MEDS: CARVEDILOL 3.125 MG TABLET PO SCH ×2 (09:02→18:03)
[2022-04-22] MEDS: ALLOPURINOL 100 MG TABLET PO SCH (09:02)
[2022-04-22] MEDS: FAMOTIDINE 20MG TABLET PO SCH (09:02)
[2022-04-22] MEDS: AMLODIPINE 10MG TABLET PO SCH (09:03)
[2022-04-22] MEDS ORDERED: LEVOFLOXACIN 250MG PREMIX 50 ML IV SCH (11:00)
[2022-04-22] MEDS ORDERED: CEFTRIAXONE 2 G PREMIX 50 ML IV SCH (12:45)
[2022-04-22] MEDS: CEFTRIAXONE 2 G in DEXTROSE 5% WATER 50 ML IV SCH (16:38)
[2022-04-22] MEDS: ATORVASTATIN CALCIUM 20MG TABLET PO SCH (20:48)
[2022-04-22] MEDS: DOXAZOSIN MESYLATE 2MG TABLET PO SCH (20:48)
[2022-04-22] MEDS: EPOETIN ALFA 10000UNITS/ML VIAL SUBCUT SCH (20:49)
[2022-04-23] VITALS: BP 128/53
[2022-04-23] MEDS: DEXT 5%/0.45% NACL 1000ML 1,000 ML IV SCH
[2022-04-23 04:00] VITALS: BP 123/59
[2022-04-23] MEDS: HYDRALAZINE HCL 100MG TABLET PO SCH ×3 (06:00→22:08)
[2022-04-23 07:26] LABS: BASOPHILS % 0.5 % (0.0-2.0); HEMATOCRIT. 25.5 % (42.0-52.0); HEMOGLOBIN. 8.4 g/dL (14.0-18.0); LYMPHOCYTES % 15.7 % (20.0-50.0); MEAN CORPUSCULAR HEMOGLOBIN 29.1 pg (28.0-32.0); MEAN CORPUSCULAR VOLUME 88.5 fL (80.0-94.0); MEAN PLATELET VOLUME 9.2 fl (7.4-10.4); MONOCYTES % 11.7 % (2.0-8.0); NEUTROPHILS % 70.1 % (40.0-76.0); PLATELET 243 x1000/uL (130-400); RED BLOOD CELL COUNT 2.88 mill/uL (4.7-6.1); RED CELL DISTRIBUTION WIDTH 14.8 % (11.6-14.6)
[2022-04-23 08:00] VITALS: BP 133/56
[2022-04-23] MEDS: ALLOPURINOL 100 MG TABLET PO SCH (10:32)
[2022-04-23] MEDS: AMLODIPINE 10MG TABLET PO SCH (10:32)
[2022-04-23] MEDS: CARVEDILOL 3.125 MG TABLET PO SCH ×2 (10:32→21:01)
[2022-04-23] MEDS: DOCUSATE SODIUM 100MG CAPSULE PO SCH ×2 (10:32→17:00)
[2022-04-23] MEDS: FAMOTIDINE 20MG TABLET PO SCH (10:33)
[2022-04-23 12:00] VITALS: BP 135/64
[2022-04-23] MEDS: CEFTRIAXONE 2 G in DEXTROSE 5% WATER 50 ML IV SCH (12:45)
[2022-04-23 16:00] VITALS: BP 139/58
[2022-04-23 20:00] VITALS: BP 133/66
[2022-04-23 20:40] LABS: HEPATITIS B SURFACE ANTIGEN NEGATIVE
[2022-04-23] MEDS: ATORVASTATIN CALCIUM 20MG TABLET PO SCH (21:00)
[2022-04-23] MEDS: DOXAZOSIN MESYLATE 2MG TABLET PO SCH (21:01)
[2022-04-24] VITALS: BP 119/60
[2022-04-24 04:00] VITALS: BP 138/67
[2022-04-24] MEDS: HYDRALAZINE HCL 100MG TABLET PO SCH ×3 (06:53→22:00)
[2022-04-24 07:26] LABS: EOSINOPHILS % 2.5 % (0.0-5.0); HEMATOCRIT. 25.2 % (42.0-52.0); HEMOGLOBIN. 8.5 g/dL (14.0-18.0); LYMPHOCYTES % 19.3 % (20.0-50.0); MEAN CORPUSCULAR HEMOGLOBIN 29.8 pg (28.0-32.0); MEAN CORPUSCULAR VOLUME 88.6 fL (80.0-94.0); MONOCYTES % 12.9 % (2.0-8.0); NEUTROPHILS % 64.3 % (40.0-76.0); PLATELET 241 x1000/uL (130-400); RED BLOOD CELL COUNT 2.84 mill/uL (4.7-6.1); RED CELL DISTRIBUTION WIDTH 15.4 % (11.6-14.6)
[2022-04-24 08:00] VITALS: BP 127/86
[2022-04-24] MEDS: CARVEDILOL 3.125 MG TABLET PO SCH ×2 (08:40→21:00)
[2022-04-24] MEDS: AMLODIPINE 10MG TABLET PO SCH (08:40)
[2022-04-24] MEDS: DOCUSATE SODIUM 100MG CAPSULE PO SCH ×2 (08:40→18:07)
[2022-04-24] MEDS: ASPIRIN 81MG TABLET PO SCH (08:40)
[2022-04-24] MEDS: ALLOPURINOL 100 MG TABLET PO SCH (08:40)
[2022-04-24] MEDS: FAMOTIDINE 20MG TABLET PO SCH (08:40)
[2022-04-24 12:00] VITALS: BP 118/79
[2022-04-24] MEDS ORDERED: VANCOMYCIN 500MG PREMIX 100 ML IV NR (12:00)
[2022-04-24 16:00] VITALS: BP 124/65
[2022-04-24] MEDS ORDERED: VANCOMYCIN 500 MG in DEXT 5% WATER 100 ML IV NR (16:00)
[2022-04-24] MEDS: HYDROCODONE/ACETAMINOPHEN 5/325MG TABLET PO PRN (18:08)
[2022-04-24] MEDS: CEFTRIAXONE 2 G in DEXTROSE 5% WATER 50 ML IV SCH (18:08)
[2022-04-24 20:00] VITALS: BP 128/76
[2022-04-24] MEDS: DOXAZOSIN MESYLATE 2MG TABLET PO SCH (21:00)
[2022-04-24] MEDS: ATORVASTATIN CALCIUM 20MG TABLET PO SCH (22:16)
[2022-04-25] VITALS: BP 149/78
[2022-04-25] MEDS: EPOETIN ALFA 10000UNITS/ML VIAL SUBCUT SCH (00:37)
[2022-04-25 04:00] VITALS: BP 145/76
[2022-04-25] MEDS: HYDRALAZINE HCL 100MG TABLET PO SCH ×3 (05:18→21:38)
[2022-04-25 07:04] LABS: BASOPHILS % 0.8 % (0.0-2.0); EOSINOPHILS % 3.6 % (0.0-5.0); HEMATOCRIT. 24.7 % (42.0-52.0); HEMOGLOBIN. 8.2 g/dL (14.0-18.0); LYMPHOCYTES % 19.1 % (20.0-50.0); MEAN CORPUSCULAR HEMOGLOBIN 29.4 pg (28.0-32.0); MEAN CORPUSCULAR VOLUME 88.8 fL (80.0-94.0); MEAN PLATELET VOLUME 8.8 fl (7.4-10.4); MONOCYTES % 13.8 % (2.0-8.0); NEUTROPHILS % 62.7 % (40.0-76.0); PLATELET 231 x1000/uL (130-400); RED BLOOD CELL COUNT 2.78 mill/uL (4.7-6.1); RED CELL DISTRIBUTION WIDTH 15.1 % (11.6-14.6)
[2022-04-25 08:00] VITALS: BP 120/63
[2022-04-25] MEDS: FAMOTIDINE 20MG TABLET PO SCH (09:18)
[2022-04-25] MEDS: ASPIRIN 81MG TABLET PO SCH (09:18)
[2022-04-25] MEDS: ALLOPURINOL 100 MG TABLET PO SCH (09:18)
[2022-04-25] MEDS: DOCUSATE SODIUM 100MG CAPSULE PO SCH ×2 (09:18→17:39)
[2022-04-25] MEDS: CARVEDILOL 3.125 MG TABLET PO SCH ×2 (09:21→21:38)
[2022-04-25] MEDS: AMLODIPINE 10MG TABLET PO SCH (09:22)
[2022-04-25 12:00] VITALS: BP 129/60
[2022-04-25] MEDS: CEFTRIAXONE 2 G in DEXTROSE 5% WATER 50 ML IV SCH (14:01)
[2022-04-25 16:00] VITALS: BP 120/62
[2022-04-25 20:00] VITALS: BP 149/77
[2022-04-25] MEDS ORDERED: NALOXONE HCL 0.4MG/ML VIAL IV PRN (20:45)
[2022-04-25] MEDS: ATORVASTATIN CALCIUM 20MG TABLET PO SCH (21:38)
[2022-04-25] MEDS: DOXAZOSIN MESYLATE 2MG TABLET PO SCH (21:38)
[2022-04-26] VITALS: BP 142/79
[2022-04-26 04:00] VITALS: BP 141/66
[2022-04-26] MEDS: HYDRALAZINE HCL 100MG TABLET PO SCH ×3 (06:42→21:30)
[2022-04-26 08:00] VITALS: BP 138/78
[2022-04-26] MEDS: FAMOTIDINE 20MG TABLET PO SCH (09:56)
[2022-04-26] MEDS: ALLOPURINOL 100 MG TABLET PO SCH (09:56)
[2022-04-26] MEDS: CARVEDILOL 3.125 MG TABLET PO SCH ×2 (09:56→21:30)
[2022-04-26] MEDS: AMLODIPINE 10MG TABLET PO SCH (09:56)
[2022-04-26] MEDS: ASPIRIN 81MG TABLET PO SCH (09:56)
[2022-04-26] MEDS: DOCUSATE SODIUM 100MG CAPSULE PO SCH ×2 (09:57→16:46)
[2022-04-26 11:29] LABS: BASOPHILS % 0.8 % (0.0-2.0); EOSINOPHILS % 3.5 % (0.0-5.0); LYMPHOCYTES % 16.8 % (20.0-50.0); MEAN CORPUSCULAR HEMOGLOBIN 28.9 pg (28.0-32.0); MEAN CORPUSCULAR VOLUME 88.1 fL (80.0-94.0); MEAN PLATELET VOLUME 9.2 fl (7.4-10.4); MONOCYTES % 9.6 % (2.0-8.0); NEUTROPHILS % 69.3 % (40.0-76.0); PLATELET 283 x1000/uL (130-400); RED CELL DISTRIBUTION WIDTH 14.9 % (11.6-14.6)
[2022-04-26 11:54] LABS: HEMATOCRIT. 29.1 % (42.0-52.0); HEMOGLOBIN. 9.5 g/dL (14.0-18.0)
[2022-04-26 12:00] VITALS: BP 128/88
[2022-04-26] MEDS: CEFTRIAXONE 2 G in DEXTROSE 5% WATER 50 ML IV SCH (13:54)
[2022-04-26 16:00] VITALS: BP 116/74
[2022-04-26 20:00] VITALS: BP 142/73
[2022-04-26] MEDS: ATORVASTATIN CALCIUM 20MG TABLET PO SCH (21:29)
[2022-04-26] MEDS: DOXAZOSIN MESYLATE 2MG TABLET PO SCH (21:30)
[2022-04-26] MEDS: EPOETIN ALFA 10000UNITS/ML VIAL SUBCUT SCH (21:31)
[2022-04-27] VITALS: BP 135/63
[2022-04-27 04:00] VITALS: BP 110/71
[2022-04-27] MEDS: HYDRALAZINE HCL 100MG TABLET PO SCH ×3 (06:00→22:16)
[2022-04-27 06:19] LABS: BASOPHILS % 0.7 % (0.0-2.0); HEMATOCRIT. 24.6 % (42.0-52.0); HEMOGLOBIN. 8.1 g/dL (14.0-18.0); LYMPHOCYTES % 19.2 % (20.0-50.0); MEAN CORPUSCULAR HEMOGLOBIN 29.1 pg (28.0-32.0); MEAN CORPUSCULAR VOLUME 88.7 fL (80.0-94.0); MONOCYTES % 13.1 % (2.0-8.0); PLATELET 262 x1000/uL (130-400); RED BLOOD CELL COUNT 2.77 mill/uL (4.7-6.1)
[2022-04-27 08:00] VITALS: BP 136/61
[2022-04-27] MEDS: DOCUSATE SODIUM 100MG CAPSULE PO SCH ×2 (09:37→18:15)
[2022-04-27] MEDS: AMLODIPINE 10MG TABLET PO SCH (09:37)
[2022-04-27] MEDS: CARVEDILOL 3.125 MG TABLET PO SCH ×2 (09:37→22:16)
[2022-04-27] MEDS: ASPIRIN 81MG TABLET PO SCH (09:37)
[2022-04-27] MEDS: ALLOPURINOL 100 MG TABLET PO SCH (09:37)
[2022-04-27] MEDS: FAMOTIDINE 20MG TABLET PO SCH (09:37)
[2022-04-27 12:00] VITALS: BP 126/58
[2022-04-27] MEDS ORDERED: VANCOMYCIN 1GM PMX (XELLIA) 200 ML IV SCH (13:00)
[2022-04-27] MEDS: CEFTRIAXONE 2 G in DEXTROSE 5% WATER 50 ML IV SCH (13:30)
[2022-04-27 16:00] VITALS: BP 109/67
[2022-04-27 20:00] VITALS: BP 147/70
[2022-04-27 20:52] LABS: HEPATITIS B SURFACE ANTIGEN NEGATIVE
[2022-04-27] MEDS: ATORVASTATIN CALCIUM 20MG TABLET PO SCH (22:17)
[2022-04-27] MEDS: DOXAZOSIN MESYLATE 2MG TABLET PO SCH (22:17)
[2022-04-28] VITALS: BP 146/70
[2022-04-28 04:00] VITALS: BP 138/68
[2022-04-28] MEDS: HYDRALAZINE HCL 100MG TABLET PO SCH ×3 (05:39→21:46)
[2022-04-28 08:00] VITALS: BP_SYST 136; BP_SYST 141; BP_DIAS 67; BP_DIAS 72
[2022-04-28] MEDS: ASPIRIN 81MG TABLET PO SCH (08:53)
[2022-04-28] MEDS: CARVEDILOL 3.125 MG TABLET PO SCH ×2 (08:53→21:46)
[2022-04-28] MEDS: FAMOTIDINE 20MG TABLET PO SCH (08:53)
[2022-04-28] MEDS: DOCUSATE SODIUM 100MG CAPSULE PO SCH ×2 (08:53→17:10)
[2022-04-28] MEDS: ALLOPURINOL 100 MG TABLET PO SCH (08:53)
[2022-04-28] MEDS: AMLODIPINE 10MG TABLET PO SCH (08:54)
[2022-04-28 12:00] VITALS: BP 138/85
[2022-04-28] MEDS: CEFTRIAXONE 2 G in DEXTROSE 5% WATER 50 ML IV SCH (14:27)
[2022-04-28 16:01] VITALS: BP 142/70
[2022-04-28 20:00] VITALS: BP 152/81
[2022-04-28] MEDS: ATORVASTATIN CALCIUM 20MG TABLET PO SCH (21:45)
[2022-04-28] MEDS: DOXAZOSIN MESYLATE 2MG TABLET PO SCH (21:46)
[2022-04-29] VITALS: BP 151/58
[2022-04-29 04:00] VITALS: BP 144/81
[2022-04-29] MEDS: HYDRALAZINE HCL 100MG TABLET PO SCH ×3 (05:08→22:00)
[2022-04-29 07:25] LABS: HEMATOCRIT. 27.3 % (42.0-52.0); HEMOGLOBIN. 8.9 g/dL (14.0-18.0); MEAN CORPUSCULAR HEMOGLOBIN 29.1 pg (28.0-32.0); MEAN CORPUSCULAR VOLUME 88.8 fL (80.0-94.0); MEAN PLATELET VOLUME 9.1 fl (7.4-10.4); PLATELET 261 x1000/uL (130-400); RED BLOOD CELL COUNT 3.07 mill/uL (4.7-6.1); RED CELL DISTRIBUTION WIDTH 15.3 % (11.6-14.6)
[2022-04-29 08:00] VITALS: BP 116/73
[2022-04-29] MEDS: AMLODIPINE 10MG TABLET PO SCH (09:59)
[2022-04-29] MEDS: DOCUSATE SODIUM 100MG CAPSULE PO SCH ×2 (09:59→16:59)
[2022-04-29] MEDS: FAMOTIDINE 20MG TABLET PO SCH (10:00)
[2022-04-29] MEDS: ALLOPURINOL 100 MG TABLET PO SCH (10:00)
[2022-04-29] MEDS: ASPIRIN 81MG TABLET PO SCH (10:00)
[2022-04-29] MEDS: CARVEDILOL 3.125 MG TABLET PO SCH ×2 (10:00→21:00)
[2022-04-29] MEDS ORDERED: VANCOMYCIN 750MG PREMIX 150 ML IV NR (12:00)
[2022-04-29] MEDS ORDERED: HYDRALAZINE 10 MG in SODIUM CHLORIDE 0.9% 49.5 ML IV PRN (12:45)
[2022-04-29 15:03] LABS: PLATELET ESTIMATE NORMAL
[2022-04-29] MEDS: HYDROCODONE/ACETAMINOPHEN 5/325MG TABLET PO PRN (15:45)
[2022-04-29 16:00] VITALS: BP 142/71
[2022-04-29] MEDS ORDERED: GUAIFENESIN 200MG/10ML SUGAR FREE UDC PO PRN (16:45)
[2022-04-29] MEDS: CEFTRIAXONE 2 G in DEXTROSE 5% WATER 50 ML IV SCH (16:59)
[2022-04-29 20:00] VITALS: BP 141/65
[2022-04-29] MEDS: ATORVASTATIN CALCIUM 20MG TABLET PO SCH (21:00)
[2022-04-29] MEDS ORDERED: EPOETIN ALFA-EPBX 10,000 UNIT/ML VIAL SUBCUT SCH (21:00)
[2022-04-29] MEDS: DOXAZOSIN MESYLATE 2MG TABLET PO SCH (21:00)
[2022-04-30] VITALS: BP 105/75
[2022-04-30 04:00] VITALS: BP 166/82
[2022-04-30] MEDS: HYDRALAZINE HCL 100MG TABLET PO SCH ×3 (07:16→22:04)
[2022-04-30 08:00] VITALS: BP 148/66
[2022-04-30] MEDS: CARVEDILOL 3.125 MG TABLET PO SCH ×2 (09:19→22:03)
[2022-04-30] MEDS: ASPIRIN 81MG TABLET PO SCH (09:19)
[2022-04-30] MEDS: ALLOPURINOL 100 MG TABLET PO SCH (09:20)
[2022-04-30] MEDS: DOCUSATE SODIUM 100MG CAPSULE PO SCH ×2 (09:20→17:41)
[2022-04-30] MEDS: AMLODIPINE 10MG TABLET PO SCH (09:20)
[2022-04-30] MEDS: FAMOTIDINE 20MG TABLET PO SCH (09:20)
[2022-04-30 12:00] VITALS: BP 146/74
[2022-04-30] MEDS ORDERED: NALOXONE HCL 0.4MG/ML VIAL IV PRN (14:15)
[2022-04-30] MEDS: DULOXETINE HCL 20MG DR CAPSULE PO SCH (15:27)
[2022-04-30] MEDS: CEFTRIAXONE 2 G in DEXTROSE 5% WATER 50 ML IV SCH (15:28)
[2022-04-30 16:00] VITALS: BP 155/69
[2022-04-30 20:00] VITALS: BP 144/66
[2022-04-30] MEDS: ATORVASTATIN CALCIUM 20MG TABLET PO SCH (22:03)
[2022-05-01] VITALS: BP 113/50
[2022-05-01] MEDS: DOXAZOSIN MESYLATE 2MG TABLET PO SCH (00:27)
[2022-05-01 04:00] VITALS: BP 139/76
[2022-05-01 06:36] LABS: BASOPHILS % 0.9 % (0.0-2.0); EOSINOPHILS % 3.6 % (0.0-5.0); HEMATOCRIT. 27.1 % (42.0-52.0); HEMOGLOBIN. 8.8 g/dL (14.0-18.0); LYMPHOCYTES % 18.2 % (20.0-50.0); MEAN CORPUSCULAR HEMOGLOBIN 28.9 pg (28.0-32.0); MEAN CORPUSCULAR VOLUME 89.2 fL (80.0-94.0); MEAN PLATELET VOLUME 8.9 fl (7.4-10.4); MONOCYTES % 11.4 % (2.0-8.0); NEUTROPHILS % 65.9 % (40.0-76.0); PLATELET 304 x1000/uL (130-400); RED BLOOD CELL COUNT 3.04 mill/uL (4.7-6.1); RED CELL DISTRIBUTION WIDTH 15.8 % (11.6-14.6)
[2022-05-01] MEDS: HYDRALAZINE HCL 100MG TABLET PO SCH ×2 (06:47→12:57)
[2022-05-01 07:36] LABS: VITAMIN B12 SERUM 513 pg/mL (211-911)
[2022-05-01 08:00] VITALS: BP 138/76
[2022-05-01] MEDS: ASPIRIN 81MG TABLET PO SCH (09:26)
[2022-05-01] MEDS: DULOXETINE HCL 20MG DR CAPSULE PO SCH (09:26)
[2022-05-01] MEDS: DOCUSATE SODIUM 100MG CAPSULE PO SCH ×2 (09:26→17:00)
[2022-05-01] MEDS: FAMOTIDINE 20MG TABLET PO SCH (09:26)
[2022-05-01] MEDS: ALLOPURINOL 100 MG TABLET PO SCH (09:26)
[2022-05-01] MEDS: AMLODIPINE 10MG TABLET PO SCH (09:26)
[2022-05-01] MEDS: CARVEDILOL 3.125 MG TABLET PO SCH (09:27)
[2022-05-01] MEDS: HYDROCODONE/ACETAMINOPHEN 5/325MG TABLET PO PRN ×2 (09:27→19:04)
[2022-05-01 12:00] VITALS: BP 112/60
[2022-05-01 16:00] VITALS: BP 123/63
[2022-05-01 19:52] VITALS: BP 123/63
== END 2022-05-01 20:36 | DRG 673 ==
LOC: ER 10:38 → 7WST 12:54 → ENRESERV 13:22 → 6EST 04-29 12:29
PROVIDERS: ADMIT Internal Medicine; ATTEND Internal Medicine
PROC: 02HV33Z Insertion of Infusion Device into Superior Vena Cava, Percutaneous Approach (ICD-10-PCS; principal; 2022-04-10)
PROC: B548ZZA Ultrasonography of Superior Vena Cava, Guidance (ICD-10-PCS; 2022-04-10)
PROC: B5181ZA Fluoroscopy of Superior Vena Cava using Low Osmolar Contrast, Guidance (ICD-10-PCS; 2022-04-10)
PROC: 5A1D70Z Performance of Urinary Filtration, Intermittent, Less than 6 Hours Per Day (ICD-10-PCS; 2022-04-10)
PROC: 5A1D70Z Performance of Urinary Filtration, Intermittent, Less than 6 Hours Per Day (ICD-10-PCS; 2022-04-12)
PROC: 02PYX3Z Removal of Infusion Device from Great Vessel, External Approach (ICD-10-PCS; 2022-04-16)
PROC: 0JH63XZ Insertion of Tunneled Vascular Access Device into Chest Subcutaneous Tissue and Fascia, Percutaneous Approach (ICD-10-PCS; 2022-04-16)
PROC: 02H633Z Insertion of Infusion Device into Right Atrium, Percutaneous Approach (ICD-10-PCS; 2022-04-16)
PROC: B548ZZA Ultrasonography of Superior Vena Cava, Guidance (ICD-10-PCS; 2022-04-16)
PROC: B5181ZA Fluoroscopy of Superior Vena Cava using Low Osmolar Contrast, Guidance (ICD-10-PCS; 2022-04-16)
PROC: 5A1D70Z Performance of Urinary Filtration, Intermittent, Less than 6 Hours Per Day (ICD-10-PCS; 2022-04-17)
PROC: 30233N1 Transfusion of Nonautologous Red Blood Cells into Peripheral Vein, Percutaneous Approach (ICD-10-PCS; 2022-04-19)
PROC: 5A1D70Z Performance of Urinary Filtration, Intermittent, Less than 6 Hours Per Day (ICD-10-PCS; 2022-04-19)
PROC: 5A1D70Z Performance of Urinary Filtration, Intermittent, Less than 6 Hours Per Day (ICD-10-PCS; 2022-04-22)
PROC: 5A1D70Z Performance of Urinary Filtration, Intermittent, Less than 6 Hours Per Day (ICD-10-PCS; 2022-04-24)
PROC: 5A1D70Z Performance of Urinary Filtration, Intermittent, Less than 6 Hours Per Day (ICD-10-PCS; 2022-04-28)
DX: N17.0 Acute kidney failure with tubular necrosis (principal); I21.4 Non-ST elevation (NSTEMI) myocardial infarction; I63.9 Cerebral infarction, unspecified; G93.41 Metabolic encephalopathy; M62.82 Rhabdomyolysis; E46 Unspecified protein-calorie malnutrition; G81.91 Hemiplegia, unspecified affecting right dominant side; N39.0 Urinary tract infection, site not specified; Z68.41 Body mass index [BMI] 40.0-44.9, adult; G82.20 Paraplegia, unspecified; I31.3 Pericardial effusion (noninflammatory); M48.061 Spinal stenosis, lumbar region without neurogenic claudication; D64.9 Anemia, unspecified; E78.00 Pure hypercholesterolemia, unspecified; E78.5 Hyperlipidemia, unspecified; N40.0 Benign prostatic hyperplasia without lower urinary tract symptoms; I12.9 Hypertensive chronic kidney disease with stage 1 through stage 4 chronic kidney disease, or unspecified chronic kidney disease; N18.9 Chronic kidney disease, unspecified; M54.9 Dorsalgia, unspecified; B19.20 Unspecified viral hepatitis C without hepatic coma; E86.0 Dehydration; M10.9 Gout, unspecified; E11.22 Type 2 diabetes mellitus with diabetic chronic kidney disease; Z20.822 Contact with and (suspected) exposure to COVID-19; N13.9 Obstructive and reflux uropathy, unspecified; E11.51 Type 2 diabetes mellitus with diabetic peripheral angiopathy without gangrene; M48.02 Spinal stenosis, cervical region; R26.89 Other abnormalities of gait and mobility; W18.39XA Other fall on same level, initial encounter; M50.30 Other cervical disc degeneration, unspecified cervical region; Z79.899 Other long term (current) drug therapy; Z87.891 Personal history of nicotine dependence; Y93.89 Activity, other specified; Y92.098 Other place in other non-institutional residence as the place of occurrence of the external cause; Y99.8 Other external cause status; R00.1 Bradycardia, unspecified; I73.9 Peripheral vascular disease, unspecified; R36.9 Urethral discharge, unspecified; K80.20 Calculus of gallbladder without cholecystitis without obstruction; D72.825 Bandemia
CPT/HCPCS: 36415; 36556; 36558; 36589; 70551; 71045; 72110; 72141; 72146; 72148; 73502; 73560; 74176; 76705; 76937; 77001; 80048; 80053; 80061; 80202; 81003; 82140; 82550; 82553; 82607; 83036; 83520; 83605; 83735; 83880; 84145; 84153; 84155; 84165; 84443; 84484; 84550; 85025; 85651; 86038; 86140; 86160; 86256; 86705; 86706; 86709; 86803; 86850; 86900; 86920; 87070; 87077; 87186; 87340; 87389; 87426; 93005; 93306; 93880; 93923; 93970; 97110; 97112; 97162; 97166; 97530; 97535; 99152; 99153; 99291; C1750; C1752; J0360; J0696; J0885; J1644; J1650; J1956; J2405; J2543; J3010; J3370; J3490; J7060; P9016; U0003; U0005; A4315; G0103; G0500

== ENCOUNTER 2022-05-31 12:50 | Emergency (ER) | payer MEDICARE, MEDICAID ==
[~2022-05-31] VITALS: Ht 175.3 cm; Wt 80.0 kg
[~2022-05-31 12:50] MED LIST: ATOR-2 PO; DOCU100T PO; FERR325T6 PO; HYDR-4001 PO; LOSA50TA41 PO; NIFE-32 PO; TAMS-11 PO
[2022-05-31 14:03] LABS: CHLORIDE 96 mEq/L (98-107)
[2022-05-31 14:05] LABS: PROTHROMBIN TIME 10.3 sec (9.6-11.0)
[2022-05-31 14:13] LABS: TOTAL IRON BINDING CAPACITY 151 ug/dL (250-450)
[2022-05-31 14:24] LABS: BASOPHILS % 0.7 % (0.0-2.0); HEMATOCRIT. 24.7 % (42.0-52.0); LYMPHOCYTES % 11.5 % (20.0-50.0); MEAN CORPUSCULAR HEMOGLOBIN 28.6 pg (28.0-32.0); MEAN CORPUSCULAR VOLUME 88.6 fL (80.0-94.0); MEAN PLATELET VOLUME 9.5 fl (7.4-10.4); MONOCYTES % 10.4 % (2.0-8.0); NEUTROPHILS % 75.4 % (40.0-76.0); PLATELET 239 x1000/uL (130-400); RED BLOOD CELL COUNT 2.79 mill/uL (4.7-6.1); RED CELL DISTRIBUTION WIDTH 17.2 % (11.6-14.6)
[2022-05-31] MEDS ORDERED: HYDROCODONE/ACETAMINOPHEN 5/325MG TABLET PO ONE (14:45)
[2022-05-31 19:31] VITALS: BP 122/71
== END 2022-05-31 19:31 | disposition home or self-care (01) ==
LOC: ER 13:08 → CANBEDREQ 22:41
DX: D63.1 Anemia in chronic kidney disease (principal); I12.0 Hypertensive chronic kidney disease with stage 5 chronic kidney disease or end stage renal disease; N18.6 End stage renal disease; G82.20 Paraplegia, unspecified; K21.9 Gastro-esophageal reflux disease without esophagitis; Z99.2 Dependence on renal dialysis
CPT/HCPCS: 36415; 71045; 80053; 83540; 83550; 85025; 85044; 86850; 86900; 86920; 93005; 99285

== ENCOUNTER 2022-08-21 11:27 | Inpatient (IN) | payer MEDICARE, MEDICAID ==
[~2022-08-21] VITALS: Ht 167.6 cm; Wt 87.5 kg
[2022-08-21] MEDS ORDERED: IOHEXOL-350 100 ML BOTTLE ONE (12:38)
[2022-08-21] MEDS ORDERED: AMLO5TAB88 PO (12:49)
[2022-08-21] MEDS ORDERED: ATOR20TA PO (12:51)
[2022-08-21] MEDS ORDERED: PROT40 PO (12:51)
[2022-08-21] MEDS ORDERED: CLOP-31 PO (12:52)
[2022-08-21] MEDS ORDERED: METO25TA6 PO (12:52)
[2022-08-21] MEDS ORDERED: DUTA1CPM4 PO (12:53)
[2022-08-21] MEDS ORDERED: GABA-529 PO (12:54)
[2022-08-21] MEDS ORDERED: DOXA2TAB2 PO (12:55)
[2022-08-21 13:13] LABS: BASOPHILS % 0.3 % (0.0-2.0); EOSINOPHILS % 0.3 % (0.0-5.0); HEMATOCRIT. 26.3 % (42.0-52.0); HEMOGLOBIN. 8.5 g/dL (14.0-18.0); LYMPHOCYTES % 9.7 % (20.0-50.0); MEAN CORPUSCULAR HEMOGLOBIN 28.5 pg (28.0-32.0); MEAN CORPUSCULAR VOLUME 88.1 fL (80.0-94.0); MEAN PLATELET VOLUME 7.8 fl (7.4-10.4); MONOCYTES % 10.8 % (2.0-8.0); NEUTROPHILS % 78.9 % (40.0-76.0); PLATELET 517 x1000/uL (130-400); RED BLOOD CELL COUNT 2.99 mill/uL (4.7-6.1); RED CELL DISTRIBUTION WIDTH 19.1 % (11.6-14.6)
[2022-08-21 13:18] LABS: CHLORIDE 96 mEq/L (98-107)
[2022-08-21 13:29] LABS: ETHANOL BLOOD < 10 mg/dL; INR 1.1; PROTHROMBIN TIME 11.4 sec (9.6-11.0)
[2022-08-21] MEDS ORDERED: PIPERACILLIN/TAZ 3.375G PREMIX 50 ML IV ONE (13:45)
[2022-08-21] MEDS ORDERED: VANCOMYCIN 1G PREMIX 200 ML IV ONE (13:45)
[2022-08-21] MEDS ORDERED: VANCOMYCIN 1G PREMIX 200 ML IV NR (14:45)
[2022-08-21] MEDS ORDERED: PIPERACILLIN/TAZ 3.375G PREMIX 50 ML IV NR (14:45)
[2022-08-21 17:30] VITALS: BP 110/60
[2022-08-21] MEDS ORDERED: ONDANSETRON HCL 4MG/2ML INJ IV PRN (17:30)
[2022-08-21] MEDS ORDERED: LEVOFLOXACIN 500MG PREMIX 100 ML IV SCH ×2 (17:45→20:00)
[2022-08-21 17:52] VITALS: BP 110/60
[2022-08-21 20:00] VITALS: BP 99/61
[2022-08-22] VITALS: BP 109/68
[2022-08-22 04:00] VITALS: BP 102/64
[2022-08-22 08:00] VITALS: BP 121/63
[2022-08-22 09:52] LABS: VITAMIN B12 SERUM 817 pg/mL (211-911)
[2022-08-22 12:00] VITALS: BP 135/68
[2022-08-22 16:00] VITALS: BP 126/86
[2022-08-22 17:07] LABS: BASOPHILS % 0.3 % (0.0-2.0); EOSINOPHILS % 0.7 % (0.0-5.0); HEMATOCRIT. 29.8 % (42.0-52.0); HEMOGLOBIN. 9.3 g/dL (14.0-18.0); LYMPHOCYTES % 10.6 % (20.0-50.0); MEAN CORPUSCULAR HEMOGLOBIN 28.1 pg (28.0-32.0); MEAN CORPUSCULAR VOLUME 90.4 fL (80.0-94.0); MEAN PLATELET VOLUME 8.1 fl (7.4-10.4); MONOCYTES % 11.8 % (2.0-8.0); NEUTROPHILS % 76.6 % (40.0-76.0); PLATELET 568 x1000/uL (130-400); RED CELL DISTRIBUTION WIDTH 19.6 % (11.6-14.6)
[2022-08-22 17:14] LABS: CHLORIDE 93 mEq/L (98-107)
[2022-08-22] MEDS: PANTOPRAZOLE 40MG DR TABLET PO SCH (18:03)
[2022-08-22] MEDS: CLOPIDOGREL 75MG TABLET PO SCH (18:03)
[2022-08-22 18:17] LABS: HEPATITIS B SURFACE ANTIGEN NEGATIVE
[2022-08-22] MEDS: SODIUM HYPOCHLORITE 0.125% 473ML SOLUTION TOP SCH (18:30)
[2022-08-22 20:00] VITALS: BP 115/74
[2022-08-22] MEDS: ATORVASTATIN CALCIUM 20MG TABLET PO SCH (22:37)
[2022-08-23] VITALS: BP 101/58
[2022-08-23 04:00] VITALS: BP 112/54
[2022-08-23 08:00] VITALS: BP 112/53
[2022-08-23] MEDS: PANTOPRAZOLE 40MG DR TABLET PO SCH ×2 (08:36→18:00)
[2022-08-23] MEDS: CLOPIDOGREL 75MG TABLET PO SCH (08:36)
[2022-08-23] MEDS: SODIUM HYPOCHLORITE 0.125% 473ML SOLUTION TOP SCH ×2 (08:38→18:00)
[2022-08-23 12:00] VITALS: BP 116/60
[2022-08-23] MEDS ORDERED: VANCOMYCIN 750MG PREMIX 150 ML IV NR (14:00)
[2022-08-23 16:00] VITALS: BP 115/56
[2022-08-23] MEDS ORDERED: LEVOFLOXACIN 250MG PREMIX 50 ML IV SCH (20:00)
[2022-08-23] MEDS: ATORVASTATIN CALCIUM 20MG TABLET PO SCH (21:38)
[2022-08-23] MEDS: EPOETIN ALFA-EPBX 4,000 UNIT/ML VIAL SUBCUT SCH (21:39)
[2022-08-23 23:49] VITALS: BP 93/52
[2022-08-24 04:56] VITALS: BP 139/67
[2022-08-24 07:44] LABS: BASOPHILS % 0.6 % (0.0-2.0); EOSINOPHILS % 0.5 % (0.0-5.0); LYMPHOCYTES % 7.1 % (20.0-50.0); MEAN CORPUSCULAR HEMOGLOBIN 28.5 pg (28.0-32.0); MEAN CORPUSCULAR VOLUME 88.6 fL (80.0-94.0); MEAN PLATELET VOLUME 8.2 fl (7.4-10.4); MONOCYTES % 8.7 % (2.0-8.0); NEUTROPHILS % 83.1 % (40.0-76.0); PLATELET 499 x1000/uL (130-400); RED BLOOD CELL COUNT 2.75 mill/uL (4.7-6.1)
[2022-08-24 07:59] LABS: HEMATOCRIT. 24.3 % (42.0-52.0); HEMOGLOBIN. 7.8 g/dL (14.0-18.0)
[2022-08-24] MEDS: PANTOPRAZOLE 40MG DR TABLET PO SCH ×2 (08:06→16:11)
[2022-08-24] MEDS: CLOPIDOGREL 75MG TABLET PO SCH (08:06)
[2022-08-24] MEDS: SODIUM HYPOCHLORITE 0.125% 473ML SOLUTION TOP SCH ×2 (08:07→16:11)
[2022-08-24 12:00] VITALS: BP 120/59
[2022-08-24 16:00] VITALS: BP 96/70
[2022-08-24] MEDS: LACTULOSE 20G/30ML UDC PO SCH ×2 (16:11→20:51)
[2022-08-24 20:27] VITALS: BP 111/43
[2022-08-24 20:32] VITALS: BP 111/54
[2022-08-24] MEDS: ATORVASTATIN CALCIUM 20MG TABLET PO SCH (20:52)
[2022-08-25 00:07] VITALS: BP 129/78
[2022-08-25] MEDS: LACTULOSE 20G/30ML UDC PO SCH ×4 (02:48→22:01)
[2022-08-25 04:00] VITALS: BP 128/56
[2022-08-25 08:00] VITALS: BP 113/49
[2022-08-25] MEDS: SODIUM HYPOCHLORITE 0.125% 473ML SOLUTION TOP SCH ×2 (08:30→18:28)
[2022-08-25] MEDS: CLOPIDOGREL 75MG TABLET PO SCH (08:32)
[2022-08-25] MEDS: PANTOPRAZOLE 40MG DR TABLET PO SCH ×2 (08:32→17:40)
[2022-08-25 10:46] LABS: BASOPHILS % 0.2 % (0.0-2.0); HEMATOCRIT. 26.6 % (42.0-52.0); HEMOGLOBIN. 8.6 g/dL (14.0-18.0); LYMPHOCYTES % 10.6 % (20.0-50.0); MEAN CORPUSCULAR HEMOGLOBIN 28.4 pg (28.0-32.0); MEAN CORPUSCULAR VOLUME 87.7 fL (80.0-94.0); MEAN PLATELET VOLUME 7.9 fl (7.4-10.4); NEUTROPHILS % 81.2 % (40.0-76.0); PLATELET 569 x1000/uL (130-400); RED BLOOD CELL COUNT 3.03 mill/uL (4.7-6.1); RED CELL DISTRIBUTION WIDTH 19.3 % (11.6-14.6)
[2022-08-25 10:59] LABS: CHLORIDE 98 mEq/L (98-107)
[2022-08-25 12:00] VITALS: BP 94/46
[2022-08-25] MEDS ORDERED: VANCOMYCIN 750MG PMX (XELLIA) 150 ML IV SCH (14:00)
[2022-08-25] MEDS ORDERED: CEFEPIME 2,000 MG in DEXT 5% WATER 100 ML IV SCH (15:45)
[2022-08-25 16:00] VITALS: BP 102/50
[2022-08-25] MEDS ORDERED: LIDOCAINE HCL 1% 10 MG/ML 10ML VIAL ONE (17:24)
[2022-08-25] MEDS ORDERED: POLYMYXIN B SULFATE 500000 UNITS/VIAL ONE (17:24)
[2022-08-25] MEDS ORDERED: BUPIVACAINE HCL/PF 0.5% (5MG/ML) 10ML ONE (17:24)
[2022-08-25] MEDS: CEFEPIME 1,000 MG in DEXTROSE 5% WATER 50 ML IV SCH (18:00)
[2022-08-25] MEDS ORDERED: ETOMIDATE 2MG/ML 10ML VIAL IV ONE (18:14)
[2022-08-25] MEDS ORDERED: DEXAMETHASONE 4MG/ML 1ML VIAL ONE (18:14)
[2022-08-25] MEDS ORDERED: ONDANSETRON HCL 4MG/2ML INJ ONE (18:14)
[2022-08-25] MEDS ORDERED: FENTANYL CITRATE/PF 50MCG/ML 2ML VIAL ONE (18:15)
[2022-08-25] MEDS ORDERED: MIDAZOLAM HCL 2 MG/2 ML VIAL ONE (18:15)
[2022-08-25] MEDS ORDERED: PROPOFOL 200MG/20ML VIAL IV ONE (18:57)
[2022-08-25] MEDS ORDERED: PHENYLEPHRINE HCL 10 MG/ML 1ML (IV VIAL) IV ONE ×2 (19:08→19:31)
[2022-08-25] MEDS ORDERED: HYDROMORPHONE HCL/PF 2MG/ML CPJ IV PRN (19:30)
[2022-08-25] MEDS ORDERED: MEPERIDINE HCL/PF 25MG/ML CPJ IV PRN (19:30)
[2022-08-25] MEDS ORDERED: LABETALOL 5MG/ML SYR 20 MG/4 ML SYRINGE IV PRN (19:30)
[2022-08-25] MEDS ORDERED: ONDANSETRON HCL 4MG/2ML INJ IV PRN (19:30)
[2022-08-25] MEDS ORDERED: MORPHINE SULFATE 4 MG/ML CPJ (NOT FOR IM USE) IV PRN (20:30)
[2022-08-25] MEDS ORDERED: NALOXONE HCL 0.4MG/ML VIAL IV PRN (20:45)
[2022-08-25 21:27] VITALS: BP 116/69
[2022-08-25] MEDS: ATORVASTATIN CALCIUM 20MG TABLET PO SCH (22:01)
[2022-08-26] VITALS (9 sets, daily range): BP systolic 92–112; BP diastolic 44–68
[2022-08-26] MEDS: LACTULOSE 20G/30ML UDC PO SCH ×4 (02:29→21:55)
[2022-08-26 06:30] LABS: HEMATOCRIT. 24.2 % (42.0-52.0); HEMOGLOBIN. 7.5 g/dL (14.0-18.0); MEAN CORPUSCULAR HEMOGLOBIN 28.1 pg (28.0-32.0); MEAN CORPUSCULAR VOLUME 90.5 fL (80.0-94.0); MEAN PLATELET VOLUME 8.1 fl (7.4-10.4); PLATELET 445 x1000/uL (130-400); RED BLOOD CELL COUNT 2.67 mill/uL (4.7-6.1); RED CELL DISTRIBUTION WIDTH 19.9 % (11.6-14.6)
[2022-08-26] MEDS: PANTOPRAZOLE 40MG DR TABLET PO SCH ×2 (06:33→16:56)
[2022-08-26] MEDS: SODIUM HYPOCHLORITE 0.125% 473ML SOLUTION TOP SCH ×2 (07:49→16:56)
[2022-08-26] MEDS: CLOPIDOGREL 75MG TABLET PO SCH (07:49)
[2022-08-26 08:15] LABS: PLATELET ESTIMATE SLIGHTLY INCREASED
[2022-08-26] MEDS: CEFEPIME 1,000 MG in DEXTROSE 5% WATER 50 ML IV SCH (16:53)
[2022-08-26] MEDS: ACETAMINOPHEN 325MG TABLET PO PRN (17:49)
[2022-08-26] MEDS: ATORVASTATIN CALCIUM 20MG TABLET PO SCH (21:55)
[2022-08-26] MEDS: EPOETIN ALFA-EPBX 4,000 UNIT/ML VIAL SUBCUT SCH (22:05)
[2022-08-27] VITALS: BP 114/59
[2022-08-27] MEDS: LACTULOSE 20G/30ML UDC PO SCH ×4 (02:30→21:18)
[2022-08-27 04:00] VITALS: BP 115/68
[2022-08-27] MEDS: PANTOPRAZOLE 40MG DR TABLET PO SCH ×2 (06:14→17:22)
[2022-08-27] MEDS: ACETAMINOPHEN 325MG TABLET PO PRN (06:34)
[2022-08-27 07:28] LABS: HEMATOCRIT. 29.1 % (42.0-52.0); HEMOGLOBIN. 9.1 g/dL (14.0-18.0); MEAN CORPUSCULAR HEMOGLOBIN 28.4 pg (28.0-32.0); MEAN CORPUSCULAR VOLUME 90.9 fL (80.0-94.0); PLATELET 447 x1000/uL (130-400)
[2022-08-27 08:00] VITALS: BP 95/47
[2022-08-27] MEDS: CLOPIDOGREL 75MG TABLET PO SCH (10:15)
[2022-08-27] MEDS: SODIUM HYPOCHLORITE 0.125% 473ML SOLUTION TOP SCH ×2 (10:15→17:23)
[2022-08-27 10:19] LABS: PLATELET ESTIMATE SLIGHTLY INCREASED
[2022-08-27 12:00] VITALS: BP 68/22
[2022-08-27 16:00] VITALS: BP 78/45
[2022-08-27] MEDS: MEROPENEM 1,000 MG in SODIUM CHLORIDE 0.9% 100 ML IV SCH (17:22)
[2022-08-27 20:27] VITALS: BP 115/59
[2022-08-27] MEDS: VANCOMYCIN 750MG PMX (XELLIA) 150 ML IV SCH ×2 (21:18→23:13)
[2022-08-27] MEDS: ATORVASTATIN CALCIUM 20MG TABLET PO SCH (21:18)
[2022-08-28 00:48] VITALS: BP 110/52
[2022-08-28 00:53] LABS: HEPATITIS B SURFACE ANTIGEN NEGATIVE
[2022-08-28] MEDS: LACTULOSE 20G/30ML UDC PO SCH ×3 (02:30→14:35)
[2022-08-28 04:00] VITALS: BP 120/51
[2022-08-28 08:00] VITALS: BP 124/51
[2022-08-28 08:13] LABS: HEMATOCRIT. 33.9 % (42.0-52.0); HEMOGLOBIN. 9.8 g/dL (14.0-18.0); MEAN CORPUSCULAR VOLUME 96.6 fL (80.0-94.0); MEAN PLATELET VOLUME 8.1 fl (7.4-10.4); PLATELET 388 x1000/uL (130-400); RED BLOOD CELL COUNT 3.51 mill/uL (4.7-6.1); RED CELL DISTRIBUTION WIDTH 19.8 % (11.6-14.6)
[2022-08-28] MEDS: CLOPIDOGREL 75MG TABLET PO SCH (09:53)
[2022-08-28] MEDS: PANTOPRAZOLE 40MG DR TABLET PO SCH ×2 (09:53→17:56)
[2022-08-28] MEDS: SODIUM HYPOCHLORITE 0.125% 473ML SOLUTION TOP SCH ×2 (09:54→17:55)
[2022-08-28 12:00] VITALS: BP 120/47
[2022-08-28] MEDS ORDERED: LIDOCAINE HCL/PF 1% 10 MG/ML 5ML VIAL ONE (12:37)
[2022-08-28 14:08] LABS: PLATELET ESTIMATE NORMAL
[2022-08-28] MEDS: MEROPENEM 1,000 MG in SODIUM CHLORIDE 0.9% 100 ML IV SCH (14:35)
[2022-08-28 16:00] VITALS: BP_SYST 120; BP_SYST 134; BP_DIAS 47; BP_DIAS 48
[2022-08-28] MEDS ORDERED: VANCOMYCIN 750MG PREMIX 150 ML IV NR (18:00)
[2022-08-28] MEDS: DAPTOMYCIN 750 MG in SODIUM CHLORIDE 0.9% 50 ML IV SCH (18:20)
[2022-08-28 21:00] VITALS: BP 135/51
[2022-08-28] MEDS: ATORVASTATIN CALCIUM 20MG TABLET PO SCH (21:00)
[2022-08-29] VITALS: BP 137/77
[2022-08-29] MEDS: LACTULOSE 20G/30ML UDC PO SCH ×5 (00:29→21:23)
[2022-08-29] MEDS: EPOETIN ALFA-EPBX 4,000 UNIT/ML VIAL SUBCUT SCH (00:29)
[2022-08-29] MEDS: PANTOPRAZOLE 40MG DR TABLET PO SCH ×2 (00:30→17:19)
[2022-08-29 04:00] VITALS: BP 145/82
[2022-08-29 07:46] LABS: CREATINE KINASE 145 IU/L (39-308)
[2022-08-29 08:00] VITALS: BP 137/65
[2022-08-29] MEDS: SODIUM HYPOCHLORITE 0.125% 473ML SOLUTION TOP SCH ×2 (09:41→17:19)
[2022-08-29] MEDS: CLOPIDOGREL 75MG TABLET PO SCH (09:41)
[2022-08-29 12:00] VITALS: BP 128/76
[2022-08-29] MEDS: MEROPENEM 1,000 MG in SODIUM CHLORIDE 0.9% 100 ML IV SCH (15:20)
[2022-08-29 16:00] VITALS: BP 146/58
[2022-08-29 20:00] VITALS: BP 103/54
[2022-08-29] MEDS: ATORVASTATIN CALCIUM 20MG TABLET PO SCH (21:23)
[2022-08-30] VITALS: BP 143/56
[2022-08-30] MEDS: LACTULOSE 20G/30ML UDC PO SCH ×4 (02:06→20:30)
[2022-08-30 04:00] VITALS: BP 135/52
[2022-08-30 08:00] VITALS: BP 106/61
[2022-08-30] MEDS: PANTOPRAZOLE 40MG DR TABLET PO SCH ×2 (08:29→17:53)
[2022-08-30] MEDS: SODIUM HYPOCHLORITE 0.125% 473ML SOLUTION TOP SCH ×2 (08:29→16:07)
[2022-08-30] MEDS: CLOPIDOGREL 75MG TABLET PO SCH (08:29)
[2022-08-30 12:00] VITALS: BP 110/51
[2022-08-30] MEDS: MEROPENEM 1,000 MG in SODIUM CHLORIDE 0.9% 100 ML IV SCH (14:08)
[2022-08-30 16:00] VITALS: BP 120/88
[2022-08-30] MEDS: DAPTOMYCIN 750 MG in SODIUM CHLORIDE 0.9% 50 ML IV SCH (17:53)
[2022-08-30 20:00] VITALS: BP 110/53
[2022-08-30] MEDS: ATORVASTATIN CALCIUM 20MG TABLET PO SCH (21:24)
[2022-08-31] VITALS: BP 115/59
[2022-08-31] MEDS: LACTULOSE 20G/30ML UDC PO SCH ×5 (02:30→20:30)
[2022-08-31 04:00] VITALS: BP 141/51
[2022-08-31] MEDS: PANTOPRAZOLE 40MG DR TABLET PO SCH ×2 (06:38→17:41)
[2022-08-31 07:18] LABS: HEMATOCRIT. 26.3 % (42.0-52.0); HEMOGLOBIN. 8.3 g/dL (14.0-18.0); MEAN CORPUSCULAR HEMOGLOBIN 28.1 pg (28.0-32.0); MEAN CORPUSCULAR VOLUME 89.2 fL (80.0-94.0); MEAN PLATELET VOLUME 7.8 fl (7.4-10.4); PLATELET 507 x1000/uL (130-400); RED BLOOD CELL COUNT 2.95 mill/uL (4.7-6.1); RED CELL DISTRIBUTION WIDTH 18.7 % (11.6-14.6)
[2022-08-31 08:00] VITALS: BP 126/57
[2022-08-31 08:56] LABS: PLATELET ESTIMATE INCREASED
[2022-08-31] MEDS: CLOPIDOGREL 75MG TABLET PO SCH (09:26)
[2022-08-31 12:00] VITALS: BP 146/76
[2022-08-31] MEDS: SODIUM HYPOCHLORITE 0.125% 473ML SOLUTION TOP SCH ×2 (13:37→17:41)
[2022-08-31] MEDS: MEROPENEM 1,000 MG in SODIUM CHLORIDE 0.9% 100 ML IV SCH (13:38)
[2022-08-31 16:00] VITALS: BP 131/78
[2022-08-31 20:00] VITALS: BP 138/48
[2022-08-31] MEDS: ATORVASTATIN CALCIUM 20MG TABLET PO SCH (21:47)
[2022-09-01] VITALS: BP 139/59
[2022-09-01] MEDS: LACTULOSE 20G/30ML UDC PO SCH ×4 (02:12→20:30)
[2022-09-01 04:00] VITALS: BP 122/53
[2022-09-01 04:54] LABS: HEPATITIS B SURFACE ANTIGEN NEGATIVE
[2022-09-01 08:00] VITALS: BP 128/58
[2022-09-01] MEDS: PANTOPRAZOLE 40MG DR TABLET PO SCH ×3 (08:00→21:03)
[2022-09-01] MEDS: CLOPIDOGREL 75MG TABLET PO SCH (08:02)
[2022-09-01] MEDS: SODIUM HYPOCHLORITE 0.125% 473ML SOLUTION TOP SCH ×2 (08:03→16:40)
[2022-09-01 12:00] VITALS: BP 139/80
[2022-09-01 16:00] VITALS: BP 173/64
[2022-09-01] MEDS: HYDRALAZINE 20MG/ML VIAL IV PRN (16:39)
[2022-09-01] MEDS: MEROPENEM 1,000 MG in SODIUM CHLORIDE 0.9% 100 ML IV SCH (17:41)
[2022-09-01] MEDS: DAPTOMYCIN 750 MG in SODIUM CHLORIDE 0.9% 50 ML IV SCH (18:59)
[2022-09-01 20:00] VITALS: BP 122/58
[2022-09-01] MEDS ORDERED: SODIUM CHLORIDE 0.9% 250 ML IV SCH (20:00)
[2022-09-01] MEDS ORDERED: SODIUM CHLORIDE 0.9% 250 ML IV ONE (20:00)
[2022-09-01] MEDS: ATORVASTATIN CALCIUM 20MG TABLET PO SCH (21:02)
[2022-09-02] VITALS: BP 139/51
[2022-09-02] MEDS: LACTULOSE 20G/30ML UDC PO SCH ×4 (02:30→21:37)
[2022-09-02 04:00] VITALS: BP 129/36
[2022-09-02 07:07] LABS: BASOPHILS % 0.6 % (0.0-2.0); EOSINOPHILS % 1.3 % (0.0-5.0); HEMATOCRIT. 23.8 % (42.0-52.0); HEMOGLOBIN. 8.1 g/dL (14.0-18.0); LYMPHOCYTES % 15.6 % (20.0-50.0); MEAN CORPUSCULAR HEMOGLOBIN 29.7 pg (28.0-32.0); MEAN CORPUSCULAR VOLUME 87.4 fL (80.0-94.0); MEAN PLATELET VOLUME 7.7 fl (7.4-10.4); MONOCYTES % 13.8 % (2.0-8.0); NEUTROPHILS % 68.7 % (40.0-76.0); PLATELET 441 x1000/uL (130-400); RED BLOOD CELL COUNT 2.72 mill/uL (4.7-6.1); RED CELL DISTRIBUTION WIDTH 19.1 % (11.6-14.6)
[2022-09-02 07:20] LABS: CHLORIDE 106 mEq/L (98-107)
[2022-09-02 08:00] VITALS: BP 117/61
[2022-09-02] MEDS: CLOPIDOGREL 75MG TABLET PO SCH (10:23)
[2022-09-02] MEDS: SODIUM HYPOCHLORITE 0.125% 473ML SOLUTION TOP SCH ×2 (10:24→18:03)
[2022-09-02 12:00] VITALS: BP 106/62
[2022-09-02] MEDS: MEROPENEM 1,000 MG in SODIUM CHLORIDE 0.9% 100 ML IV SCH (13:33)
[2022-09-02 16:00] VITALS: BP 110/78
[2022-09-02] MEDS: PANTOPRAZOLE 40MG DR TABLET PO SCH (18:03)
[2022-09-02 20:00] VITALS: BP 123/61
[2022-09-02] MEDS: ATORVASTATIN CALCIUM 20MG TABLET PO SCH (21:33)
[2022-09-03] VITALS: BP 133/57
[2022-09-03] MEDS: LACTULOSE 20G/30ML UDC PO SCH ×4 (03:49→20:29)
[2022-09-03 04:00] VITALS: BP 110/64
[2022-09-03 08:00] VITALS: BP 158/90
[2022-09-03] MEDS: CLOPIDOGREL 75MG TABLET PO SCH (08:06)
[2022-09-03] MEDS: PANTOPRAZOLE 40MG DR TABLET PO SCH ×2 (08:06→16:44)
[2022-09-03] MEDS: SODIUM HYPOCHLORITE 0.125% 473ML SOLUTION TOP SCH ×2 (08:07→16:44)
[2022-09-03 12:00] VITALS: BP 124/51
[2022-09-03] MEDS: MEROPENEM 1,000 MG in SODIUM CHLORIDE 0.9% 100 ML IV SCH (14:27)
[2022-09-03 16:00] VITALS: BP 109/52
[2022-09-03] MEDS: DAPTOMYCIN 750 MG in SODIUM CHLORIDE 0.9% 50 ML IV SCH (17:53)
[2022-09-03 20:00] VITALS: BP 108/54
[2022-09-03] MEDS: EPOETIN ALFA-EPBX 4,000 UNIT/ML VIAL SUBCUT SCH (20:28)
[2022-09-03] MEDS: ATORVASTATIN CALCIUM 20MG TABLET PO SCH (20:29)
[2022-09-04] VITALS: BP 111/38
[2022-09-04] MEDS: LACTULOSE 20G/30ML UDC PO SCH ×4 (01:36→21:55)
[2022-09-04 04:00] VITALS: BP 103/57
[2022-09-04] MEDS: CLOPIDOGREL 75MG TABLET PO SCH (09:12)
[2022-09-04] MEDS: PANTOPRAZOLE 40MG DR TABLET PO SCH ×2 (09:12→17:00)
[2022-09-04] MEDS: SODIUM HYPOCHLORITE 0.125% 473ML SOLUTION TOP SCH ×2 (09:13→17:00)
[2022-09-04 12:00] VITALS: BP 168/61
[2022-09-04] MEDS: MEROPENEM 1,000 MG in SODIUM CHLORIDE 0.9% 100 ML IV SCH (14:08)
[2022-09-04 16:00] VITALS: BP 128/41
[2022-09-04 18:15] LABS: BASOPHILS % 0.7 % (0.0-2.0); EOSINOPHILS % 1.5 % (0.0-5.0); HEMATOCRIT. 22.6 % (42.0-52.0); HEMOGLOBIN. 7.5 g/dL (14.0-18.0); LYMPHOCYTES % 13.5 % (20.0-50.0); MEAN CORPUSCULAR HEMOGLOBIN 29.5 pg (28.0-32.0); MEAN CORPUSCULAR VOLUME 89.3 fL (80.0-94.0); MEAN PLATELET VOLUME 7.8 fl (7.4-10.4); MONOCYTES % 12.8 % (2.0-8.0); NEUTROPHILS % 71.5 % (40.0-76.0); PLATELET 382 x1000/uL (130-400); RED BLOOD CELL COUNT 2.53 mill/uL (4.7-6.1); RED CELL DISTRIBUTION WIDTH 19.3 % (11.6-14.6)
[2022-09-04 18:27] LABS: CHLORIDE 107 mEq/L (98-107)
[2022-09-04 18:53] LABS: HEPATITIS B SURFACE ANTIGEN NEGATIVE
[2022-09-04 20:00] VITALS: BP 140/54
[2022-09-04] MEDS: ATORVASTATIN CALCIUM 20MG TABLET PO SCH (21:56)
[2022-09-04] MEDS: ACETAMINOPHEN 325MG TABLET PO PRN (22:26)
[2022-09-05] VITALS: BP 143/46
[2022-09-05] MEDS: LACTULOSE 20G/30ML UDC PO SCH ×4 (03:04→21:10)
[2022-09-05 04:00] VITALS: BP 135/56
[2022-09-05 08:00] VITALS: BP 130/53
[2022-09-05 12:00] VITALS: BP 164/59
[2022-09-05] MEDS: PANTOPRAZOLE 40MG DR TABLET PO SCH ×2 (14:29→18:44)
[2022-09-05] MEDS: CLOPIDOGREL 75MG TABLET PO SCH (14:29)
[2022-09-05] MEDS: SODIUM HYPOCHLORITE 0.125% 473ML SOLUTION TOP SCH ×2 (14:30→18:44)
[2022-09-05] MEDS: MEROPENEM 1,000 MG in SODIUM CHLORIDE 0.9% 100 ML IV SCH (15:49)
[2022-09-05 16:00] VITALS: BP 149/56
[2022-09-05] MEDS: DAPTOMYCIN 750 MG in SODIUM CHLORIDE 0.9% 50 ML IV SCH (18:30)
[2022-09-05 20:00] VITALS: BP 101/80
[2022-09-05] MEDS: ATORVASTATIN CALCIUM 20MG TABLET PO SCH (21:09)
[2022-09-05] MEDS: EPOETIN ALFA-EPBX 4,000 UNIT/ML VIAL SUBCUT SCH (21:10)
[2022-09-06] VITALS: BP 107/58
[2022-09-06 04:00] VITALS: BP 110/76
[2022-09-06] MEDS: LACTULOSE 20G/30ML UDC PO SCH ×3 (04:30→13:52)
[2022-09-06] MEDS: CLOPIDOGREL 75MG TABLET PO SCH (09:36)
[2022-09-06] MEDS: PANTOPRAZOLE 40MG DR TABLET PO SCH ×2 (09:36→17:16)
[2022-09-06] MEDS: SODIUM HYPOCHLORITE 0.125% 473ML SOLUTION TOP SCH ×2 (11:34→17:16)
[2022-09-06 12:00] VITALS: BP 117/50
[2022-09-06] MEDS: MEROPENEM 1,000 MG in SODIUM CHLORIDE 0.9% 100 ML IV SCH (14:00)
[2022-09-06 16:00] VITALS: BP 114/29
[2022-09-06 20:00] VITALS: BP 116/44
[2022-09-06] MEDS: ATORVASTATIN CALCIUM 20MG TABLET PO SCH (22:15)
[2022-09-06 23:57] LABS: BASOPHILS % 0.9 % (0.0-2.0); EOSINOPHILS % 2.8 % (0.0-5.0); HEMATOCRIT. 23.4 % (42.0-52.0); HEMOGLOBIN. 7.6 g/dL (14.0-18.0); LYMPHOCYTES % 21.2 % (20.0-50.0); MEAN CORPUSCULAR HEMOGLOBIN 28.7 pg (28.0-32.0); MEAN CORPUSCULAR VOLUME 88.9 fL (80.0-94.0); MONOCYTES % 13.8 % (2.0-8.0); NEUTROPHILS % 61.3 % (40.0-76.0); PLATELET 364 x1000/uL (130-400); RED BLOOD CELL COUNT 2.63 mill/uL (4.7-6.1); RED CELL DISTRIBUTION WIDTH 19.4 % (11.6-14.6)
[2022-09-07] VITALS: BP 116/42
[2022-09-07 04:00] VITALS: BP 148/72
[2022-09-07 08:00] VITALS: BP 121/42
[2022-09-07] MEDS: PANTOPRAZOLE 40MG DR TABLET PO SCH ×2 (09:14→16:53)
[2022-09-07] MEDS: CLOPIDOGREL 75MG TABLET PO SCH (09:14)
[2022-09-07] MEDS: LACTULOSE 20G/30ML UDC PO SCH (09:15)
[2022-09-07] MEDS: SODIUM HYPOCHLORITE 0.125% 473ML SOLUTION TOP SCH ×2 (09:15→16:53)
[2022-09-07 12:00] VITALS: BP 107/35
[2022-09-07] MEDS: MEROPENEM 1,000 MG in SODIUM CHLORIDE 0.9% 100 ML IV SCH (14:22)
[2022-09-07 16:00] VITALS: BP 102/55
[2022-09-07] MEDS: ACETAMINOPHEN 325MG TABLET PO PRN (16:52)
[2022-09-07] MEDS: DAPTOMYCIN 750 MG in SODIUM CHLORIDE 0.9% 50 ML IV SCH (18:00)
[2022-09-07 20:00] VITALS: BP 135/62
[2022-09-07] MEDS: ATORVASTATIN CALCIUM 20MG TABLET PO SCH (22:07)
[2022-09-08 00:31] VITALS: BP_SYST 57
[2022-09-08 04:00] VITALS: BP 119/44
[2022-09-08 08:00] VITALS: BP 127/61
[2022-09-08] MEDS: CLOPIDOGREL 75MG TABLET PO SCH (09:00)
[2022-09-08] MEDS: PANTOPRAZOLE 40MG DR TABLET PO SCH ×2 (09:25→17:18)
[2022-09-08] MEDS: LACTULOSE 20G/30ML UDC PO SCH (09:26)
[2022-09-08] MEDS: SODIUM HYPOCHLORITE 0.125% 473ML SOLUTION TOP SCH ×2 (09:26→17:18)
[2022-09-08 12:00] VITALS: BP 123/53
[2022-09-08] MEDS: MEROPENEM 1,000 MG in SODIUM CHLORIDE 0.9% 100 ML IV SCH (13:32)
[2022-09-08 16:00] VITALS: BP 124/70
[2022-09-08] MEDS: HYDRALAZINE 20MG/ML VIAL IV PRN (17:18)
[2022-09-08 20:00] VITALS: BP 154/53
[2022-09-08] MEDS: ATORVASTATIN CALCIUM 20MG TABLET PO SCH (21:35)
[2022-09-08] MEDS: EPOETIN ALFA-EPBX 4,000 UNIT/ML VIAL SUBCUT SCH (21:35)
[2022-09-09] VITALS: BP 163/72
[2022-09-09] MEDS: HYDRALAZINE 20MG/ML VIAL IV PRN (01:08)
[2022-09-09 04:00] VITALS: BP 111/63
[2022-09-09 08:00] VITALS: BP 123/68
[2022-09-09] MEDS: CLOPIDOGREL 75MG TABLET PO SCH (09:10)
[2022-09-09] MEDS: LACTULOSE 20G/30ML UDC PO SCH (09:10)
[2022-09-09] MEDS: PANTOPRAZOLE 40MG DR TABLET PO SCH ×2 (09:10→17:37)
[2022-09-09] MEDS: SODIUM HYPOCHLORITE 0.125% 473ML SOLUTION TOP SCH ×2 (09:10→17:37)
[2022-09-09 11:09] LABS: BASOPHILS % 0.6 % (0.0-2.0); EOSINOPHILS % 0.6 % (0.0-5.0); HEMATOCRIT. 24.4 % (42.0-52.0); HEMOGLOBIN. 7.9 g/dL (14.0-18.0); LYMPHOCYTES % 14.1 % (20.0-50.0); MEAN CORPUSCULAR HEMOGLOBIN 28.6 pg (28.0-32.0); MEAN CORPUSCULAR VOLUME 88.6 fL (80.0-94.0); MEAN PLATELET VOLUME 8.1 fl (7.4-10.4); MONOCYTES % 12.5 % (2.0-8.0); NEUTROPHILS % 72.2 % (40.0-76.0); PLATELET 426 x1000/uL (130-400); RED BLOOD CELL COUNT 2.76 mill/uL (4.7-6.1); RED CELL DISTRIBUTION WIDTH 19.6 % (11.6-14.6)
[2022-09-09 12:00] VITALS: BP 110/34
[2022-09-09 12:22] LABS: CHLORIDE 98 mEq/L (98-107)
[2022-09-09 12:40] LABS: CREATINE KINASE 122 IU/L (39-308)
[2022-09-09] MEDS: MEROPENEM 1,000 MG in SODIUM CHLORIDE 0.9% 100 ML IV SCH (13:48)
[2022-09-09 16:00] VITALS: BP 99/59
[2022-09-09] MEDS: DAPTOMYCIN 750 MG in SODIUM CHLORIDE 0.9% 50 ML IV SCH (17:37)
[2022-09-09 18:15] LABS: HEPATITIS B SURFACE ANTIGEN NEGATIVE
[2022-09-09 20:00] VITALS: BP 135/58
[2022-09-09] MEDS: ATORVASTATIN CALCIUM 20MG TABLET PO SCH (21:48)
[2022-09-10] VITALS: BP 127/62
[2022-09-10 04:00] VITALS: BP 131/54
[2022-09-10 08:00] VITALS: BP 81/32
[2022-09-10] MEDS: LACTULOSE 20G/30ML UDC PO SCH (10:24)
[2022-09-10] MEDS: SODIUM HYPOCHLORITE 0.125% 473ML SOLUTION TOP SCH ×2 (10:25→16:21)
[2022-09-10] MEDS: PANTOPRAZOLE 40MG DR TABLET PO SCH ×2 (10:25→16:23)
[2022-09-10] MEDS: CLOPIDOGREL 75MG TABLET PO SCH (10:25)
[2022-09-10 12:00] VITALS: BP 158/55
[2022-09-10 16:00] VITALS: BP 121/56
[2022-09-10] MEDS: MEROPENEM 1,000 MG in SODIUM CHLORIDE 0.9% 100 ML IV SCH (16:21)
[2022-09-10 20:00] VITALS: BP 105/55
[2022-09-10] MEDS: ATORVASTATIN CALCIUM 20MG TABLET PO SCH (22:10)
[2022-09-11] VITALS (10 sets, daily range): BP systolic 100–139; BP diastolic 34–78
[2022-09-11] MEDS: PANTOPRAZOLE 40MG DR TABLET PO SCH ×2 (06:33→18:35)
[2022-09-11] MEDS: CLOPIDOGREL 75MG TABLET PO SCH (08:22)
[2022-09-11] MEDS: SODIUM HYPOCHLORITE 0.125% 473ML SOLUTION TOP SCH ×2 (08:23→18:36)
[2022-09-11] MEDS: LACTULOSE 20G/30ML UDC PO SCH (08:25)
[2022-09-11 08:54] LABS: HEMATOCRIT. 21.1 % (42.0-52.0); MEAN CORPUSCULAR HEMOGLOBIN 29.4 pg (28.0-32.0); MEAN CORPUSCULAR VOLUME 90.2 fL (80.0-94.0); MEAN PLATELET VOLUME 7.9 fl (7.4-10.4); PLATELET 343 x1000/uL (130-400); RED BLOOD CELL COUNT 2.34 mill/uL (4.7-6.1); RED CELL DISTRIBUTION WIDTH 20.5 % (11.6-14.6)
[2022-09-11 09:10] LABS: HEMOGLOBIN. 6.9 g/dL (14.0-18.0)
[2022-09-11 12:30] LABS: PLATELET ESTIMATE NORMAL
[2022-09-11 15:31] LABS: TOTAL IRON BINDING CAPACITY 73 ug/dL (250-450)
[2022-09-11 16:14] LABS: VITAMIN B12 SERUM 564 pg/mL (211-911)
[2022-09-11 16:21] LABS: PROTHROMBIN TIME 10.7 sec (9.6-11.0)
[2022-09-11 16:43] LABS: FERRITIN 1421 ng/mL (22-322)
[2022-09-11] MEDS: ATORVASTATIN CALCIUM 20MG TABLET PO SCH (22:40)
[2022-09-12] VITALS (7 sets, daily range): BP systolic 121–153; BP diastolic 45–78
[2022-09-12] MEDS: CLOPIDOGREL 75MG TABLET PO SCH (08:47)
[2022-09-12] MEDS: LACTULOSE 20G/30ML UDC PO SCH (08:47)
[2022-09-12] MEDS: PANTOPRAZOLE 40MG DR TABLET PO SCH ×2 (08:47→17:44)
[2022-09-12] MEDS: SODIUM HYPOCHLORITE 0.125% 473ML SOLUTION TOP SCH ×2 (09:00→17:02)
[2022-09-12 10:20] LABS: HEMATOCRIT. 25.9 % (42.0-52.0); HEMOGLOBIN. 8.5 g/dL (14.0-18.0); MEAN CORPUSCULAR HEMOGLOBIN 29.6 pg (28.0-32.0); MEAN PLATELET VOLUME 7.9 fl (7.4-10.4); PLATELET 349 x1000/uL (130-400); RED BLOOD CELL COUNT 2.88 mill/uL (4.7-6.1); RED CELL DISTRIBUTION WIDTH 18.7 % (11.6-14.6)
[2022-09-12] MEDS ORDERED: LACTULOSE 20G/30ML UDC PO NR (11:00)
[2022-09-12] MEDS: FOLIC ACID/VITAMIN B COMP W-C TABLET PO SCH (11:19)
[2022-09-12 15:26] LABS: PLATELET ESTIMATE NORMAL
[2022-09-12] MEDS: ATORVASTATIN CALCIUM 20MG TABLET PO SCH (21:23)
[2022-09-13] VITALS: BP 167/80
[2022-09-13 04:00] VITALS: BP 178/75
[2022-09-13 08:00] VITALS: BP 150/63
[2022-09-13] MEDS: LACTULOSE 20G/30ML UDC PO SCH (08:36)
[2022-09-13] MEDS: SODIUM HYPOCHLORITE 0.125% 473ML SOLUTION TOP SCH ×2 (08:36→17:00)
[2022-09-13] MEDS: PANTOPRAZOLE 40MG DR TABLET PO SCH ×2 (08:36→18:53)
[2022-09-13] MEDS: FOLIC ACID/VITAMIN B COMP W-C TABLET PO SCH (08:36)
[2022-09-13] MEDS: CLOPIDOGREL 75MG TABLET PO SCH (08:36)
[2022-09-13 09:24] LABS: BASOPHILS % 0.5 % (0.0-2.0); EOSINOPHILS % 2.1 % (0.0-5.0); HEMATOCRIT. 27.1 % (42.0-52.0); HEMOGLOBIN. 9.1 g/dL (14.0-18.0); LYMPHOCYTES % 17.2 % (20.0-50.0); MEAN CORPUSCULAR HEMOGLOBIN 30.4 pg (28.0-32.0); MEAN CORPUSCULAR VOLUME 90.8 fL (80.0-94.0); MEAN PLATELET VOLUME 7.5 fl (7.4-10.4); MONOCYTES % 14.5 % (2.0-8.0); NEUTROPHILS % 65.7 % (40.0-76.0); PLATELET 348 x1000/uL (130-400); RED BLOOD CELL COUNT 2.99 mill/uL (4.7-6.1)
[2022-09-13 12:00] VITALS: BP 146/65
[2022-09-13 16:00] VITALS: BP 169/60
[2022-09-13 20:00] VITALS: BP 92/51
[2022-09-13] MEDS: EPOETIN ALFA-EPBX 4,000 UNIT/ML VIAL SUBCUT SCH (22:07)
[2022-09-13] MEDS: ATORVASTATIN CALCIUM 20MG TABLET PO SCH (22:07)
[2022-09-14] VITALS: BP 127/71
[2022-09-14 04:00] VITALS: BP 154/79
[2022-09-14 08:00] VITALS: BP 108/66
[2022-09-14 08:03] LABS: HEMATOCRIT. 29.4 % (42.0-52.0); HEMOGLOBIN. 9.7 g/dL (14.0-18.0); MEAN CORPUSCULAR HEMOGLOBIN 29.7 pg (28.0-32.0); MEAN CORPUSCULAR VOLUME 89.6 fL (80.0-94.0); MEAN PLATELET VOLUME 7.5 fl (7.4-10.4); PLATELET 301 x1000/uL (130-400); RED BLOOD CELL COUNT 3.28 mill/uL (4.7-6.1); RED CELL DISTRIBUTION WIDTH 19.2 % (11.6-14.6)
[2022-09-14] MEDS: FOLIC ACID/VITAMIN B COMP W-C TABLET PO SCH (09:36)
[2022-09-14] MEDS: PANTOPRAZOLE 40MG DR TABLET PO SCH ×2 (09:36→18:25)
[2022-09-14] MEDS: CLOPIDOGREL 75MG TABLET PO SCH (09:36)
[2022-09-14] MEDS: SODIUM HYPOCHLORITE 0.125% 473ML SOLUTION TOP SCH ×2 (09:36→18:25)
[2022-09-14] MEDS: LACTULOSE 20G/30ML UDC PO SCH (09:36)
[2022-09-14 10:47] LABS: PLATELET ESTIMATE NORMAL
[2022-09-14 12:00] VITALS: BP 137/67
[2022-09-14 16:00] VITALS: BP 132/61
[2022-09-14 20:00] VITALS: BP 145/55
[2022-09-14] MEDS: ATORVASTATIN CALCIUM 20MG TABLET PO SCH (22:02)
[2022-09-15] VITALS: BP 116/61
[2022-09-15 04:00] VITALS: BP 152/50
[2022-09-15 08:00] VITALS: BP 147/66
[2022-09-15] MEDS: LACTULOSE 20G/30ML UDC PO SCH (09:05)
[2022-09-15] MEDS: FOLIC ACID/VITAMIN B COMP W-C TABLET PO SCH (09:06)
[2022-09-15] MEDS: PANTOPRAZOLE 40MG DR TABLET PO SCH ×2 (09:06→17:58)
[2022-09-15] MEDS: SODIUM HYPOCHLORITE 0.125% 473ML SOLUTION TOP SCH ×2 (09:06→17:58)
[2022-09-15] MEDS: CLOPIDOGREL 75MG TABLET PO SCH (09:06)
[2022-09-15 09:08] LABS: HEMOGLOBIN. 8.8 g/dL (14.0-18.0); MEAN CORPUSCULAR HEMOGLOBIN 29.4 pg (28.0-32.0); MEAN CORPUSCULAR VOLUME 90.5 fL (80.0-94.0); MEAN PLATELET VOLUME 7.7 fl (7.4-10.4); PLATELET 311 x1000/uL (130-400); RED BLOOD CELL COUNT 2.99 mill/uL (4.7-6.1); RED CELL DISTRIBUTION WIDTH 19.7 % (11.6-14.6)
[2022-09-15 10:10] LABS: PLATELET ESTIMATE NORMAL
[2022-09-15 11:35] VITALS: BP 160/62
[2022-09-15 16:00] VITALS: BP 145/70
[2022-09-15 20:00] VITALS: BP 156/49
[2022-09-15] MEDS: ATORVASTATIN CALCIUM 20MG TABLET PO SCH (21:43)
[2022-09-16] VITALS: BP 124/47
[2022-09-16] MEDS: ACETAMINOPHEN 325MG TABLET PO PRN (02:57)
[2022-09-16 04:00] VITALS: BP 148/58
[2022-09-16 06:43] LABS: HEMATOCRIT. 26.9 % (42.0-52.0); MEAN CORPUSCULAR HEMOGLOBIN 29.9 pg (28.0-32.0); MEAN CORPUSCULAR VOLUME 89.2 fL (80.0-94.0); MEAN PLATELET VOLUME 7.6 fl (7.4-10.4); PLATELET 300 x1000/uL (130-400); RED BLOOD CELL COUNT 3.02 mill/uL (4.7-6.1); RED CELL DISTRIBUTION WIDTH 18.8 % (11.6-14.6)
[2022-09-16 08:00] VITALS: BP 173/74
[2022-09-16] MEDS: LACTULOSE 20G/30ML UDC PO SCH (08:49)
[2022-09-16] MEDS: FOLIC ACID/VITAMIN B COMP W-C TABLET PO SCH (08:50)
[2022-09-16] MEDS: PANTOPRAZOLE 40MG DR TABLET PO SCH ×2 (08:50→17:32)
[2022-09-16] MEDS: CLOPIDOGREL 75MG TABLET PO SCH (08:50)
[2022-09-16] MEDS: SODIUM HYPOCHLORITE 0.125% 473ML SOLUTION TOP SCH ×2 (09:32→17:32)
[2022-09-16 12:00] VITALS: BP 149/69
[2022-09-16 15:34] LABS: PLATELET ESTIMATE NORMAL
[2022-09-16 16:00] VITALS: BP 167/57
[2022-09-16 17:06] LABS: HBSAG SCREEN Negative (Negative)
[2022-09-16 20:00] VITALS: BP 127/53
[2022-09-16] MEDS: ATORVASTATIN CALCIUM 20MG TABLET PO SCH (21:09)
[2022-09-16] MEDS: EPOETIN ALFA-EPBX 4,000 UNIT/ML VIAL SUBCUT SCH (21:10)
[2022-09-17 00:28] VITALS: BP 122/58
[2022-09-17 04:00] VITALS: BP 143/68
[2022-09-17 08:00] VITALS: BP 150/55
[2022-09-17] MEDS: SODIUM HYPOCHLORITE 0.125% 473ML SOLUTION TOP SCH ×2 (08:24→16:44)
[2022-09-17] MEDS: LACTULOSE 20G/30ML UDC PO SCH (08:24)
[2022-09-17] MEDS: FOLIC ACID/VITAMIN B COMP W-C TABLET PO SCH (08:24)
[2022-09-17] MEDS: CLOPIDOGREL 75MG TABLET PO SCH (08:24)
[2022-09-17] MEDS: PANTOPRAZOLE 40MG DR TABLET PO SCH ×2 (08:24→16:44)
[2022-09-17 08:35] LABS: BASOPHILS % 0.8 % (0.0-2.0); EOSINOPHILS % 2.7 % (0.0-5.0); HEMOGLOBIN. 9.2 g/dL (14.0-18.0); LYMPHOCYTES % 35.6 % (20.0-50.0); MEAN CORPUSCULAR HEMOGLOBIN 29.8 pg (28.0-32.0); MEAN CORPUSCULAR VOLUME 90.3 fL (80.0-94.0); MEAN PLATELET VOLUME 7.9 fl (7.4-10.4); MONOCYTES % 13.4 % (2.0-8.0); NEUTROPHILS % 47.5 % (40.0-76.0); PLATELET 334 x1000/uL (130-400); RED BLOOD CELL COUNT 3.09 mill/uL (4.7-6.1); RED CELL DISTRIBUTION WIDTH 18.9 % (11.6-14.6)
[2022-09-17 12:00] VITALS: BP 152/72
[2022-09-17] MEDS: AMLODIPINE 5MG TABLET PO SCH (13:56)
[2022-09-17 16:00] VITALS: BP 140/71
[2022-09-17 20:00] VITALS: BP 123/50
[2022-09-17] MEDS: ATORVASTATIN CALCIUM 20MG TABLET PO SCH (20:40)
[2022-09-18] VITALS: BP 129/51
[2022-09-18 04:00] VITALS: BP 117/54
[2022-09-18 08:00] VITALS: BP 130/66
[2022-09-18 08:20] LABS: HEMATOCRIT. 26.5 % (42.0-52.0); HEMOGLOBIN. 8.6 g/dL (14.0-18.0); MEAN CORPUSCULAR HEMOGLOBIN 29.2 pg (28.0-32.0); MEAN CORPUSCULAR VOLUME 89.9 fL (80.0-94.0); MEAN PLATELET VOLUME 7.7 fl (7.4-10.4); PLATELET 328 x1000/uL (130-400); RED BLOOD CELL COUNT 2.95 mill/uL (4.7-6.1); RED CELL DISTRIBUTION WIDTH 18.5 % (11.6-14.6)
[2022-09-18] MEDS: FOLIC ACID/VITAMIN B COMP W-C TABLET PO SCH (09:47)
[2022-09-18] MEDS: CLOPIDOGREL 75MG TABLET PO SCH (09:47)
[2022-09-18] MEDS: PANTOPRAZOLE 40MG DR TABLET PO SCH ×2 (09:47→18:36)
[2022-09-18] MEDS: LACTULOSE 20G/30ML UDC PO SCH (09:47)
[2022-09-18] MEDS: AMLODIPINE 5MG TABLET PO SCH (09:48)
[2022-09-18 10:17] LABS: PLATELET ESTIMATE NORMAL
[2022-09-18] MEDS: SODIUM HYPOCHLORITE 0.125% 473ML SOLUTION TOP SCH ×2 (10:28→18:36)
[2022-09-18 12:00] VITALS: BP 150/50
[2022-09-18 16:00] VITALS: BP 140/63
[2022-09-18 20:00] VITALS: BP 125/70
[2022-09-18] MEDS: EPOETIN ALFA-EPBX 4,000 UNIT/ML VIAL SUBCUT SCH (20:09)
[2022-09-18] MEDS: ATORVASTATIN CALCIUM 20MG TABLET PO SCH (20:09)
[2022-09-19] VITALS: BP 110/62
[2022-09-19 04:00] VITALS: BP 131/68
[2022-09-19] MEDS: PANTOPRAZOLE 40MG DR TABLET PO SCH ×2 (05:54→17:22)
[2022-09-19 08:00] VITALS: BP 107/58
[2022-09-19] MEDS: AMLODIPINE 5MG TABLET PO SCH (09:00)
[2022-09-19] MEDS: SODIUM HYPOCHLORITE 0.125% 473ML SOLUTION TOP SCH ×2 (09:13→17:23)
[2022-09-19] MEDS: LACTULOSE 20G/30ML UDC PO SCH (09:14)
[2022-09-19] MEDS: FOLIC ACID/VITAMIN B COMP W-C TABLET PO SCH (09:15)
[2022-09-19] MEDS: CLOPIDOGREL 75MG TABLET PO SCH (09:15)
[2022-09-19 12:00] VITALS: BP 109/57
[2022-09-19 16:00] VITALS: BP 143/57
[2022-09-19 17:03] LABS: HEMATOCRIT. 25.6 % (42.0-52.0); HEMOGLOBIN. 8.4 g/dL (14.0-18.0); MEAN CORPUSCULAR HEMOGLOBIN 29.8 pg (28.0-32.0); MEAN CORPUSCULAR VOLUME 90.8 fL (80.0-94.0); MEAN PLATELET VOLUME 7.7 fl (7.4-10.4); PLATELET 364 x1000/uL (130-400); RED BLOOD CELL COUNT 2.82 mill/uL (4.7-6.1); RED CELL DISTRIBUTION WIDTH 18.4 % (11.6-14.6)
[2022-09-19 20:00] VITALS: BP 118/37
[2022-09-19] MEDS: ATORVASTATIN CALCIUM 20MG TABLET PO SCH (20:41)
[2022-09-19 22:57] LABS: PLATELET ESTIMATE NORMAL
[2022-09-20] VITALS: BP 133/57
[2022-09-20 04:00] VITALS: BP 137/87
[2022-09-20 06:51] LABS: HEMATOCRIT. 23.6 % (42.0-52.0); HEMOGLOBIN. 7.8 g/dL (14.0-18.0); MEAN CORPUSCULAR HEMOGLOBIN 29.7 pg (28.0-32.0); MEAN CORPUSCULAR VOLUME 89.4 fL (80.0-94.0); MEAN PLATELET VOLUME 7.7 fl (7.4-10.4); PLATELET 310 x1000/uL (130-400); RED BLOOD CELL COUNT 2.64 mill/uL (4.7-6.1); RED CELL DISTRIBUTION WIDTH 18.6 % (11.6-14.6)
[2022-09-20 08:00] VITALS: BP 142/55
[2022-09-20] MEDS: LACTULOSE 20G/30ML UDC PO SCH (08:43)
[2022-09-20] MEDS: AMLODIPINE 5MG TABLET PO SCH (08:49)
[2022-09-20] MEDS: FOLIC ACID/VITAMIN B COMP W-C TABLET PO SCH (08:49)
[2022-09-20 10:29] LABS: PLATELET ESTIMATE NORMAL
[2022-09-20 12:00] VITALS: BP 138/60
[2022-09-20 14:58] LABS: HEPATITIS B SURFACE ANTIGEN NEGATIVE
[2022-09-20 16:00] VITALS: BP 153/49
[2022-09-20 20:10] VITALS: BP 143/67
[2022-09-20] MEDS: EPOETIN ALFA-EPBX 4,000 UNIT/ML VIAL SUBCUT SCH (20:30)
[2022-09-21] VITALS (8 sets, daily range): BP systolic 128–162; BP diastolic 53–64
[2022-09-21 07:04] LABS: HEMATOCRIT. 26.9 % (42.0-52.0); HEMOGLOBIN. 8.9 g/dL (14.0-18.0); MEAN CORPUSCULAR HEMOGLOBIN 29.6 pg (28.0-32.0); MEAN CORPUSCULAR VOLUME 89.3 fL (80.0-94.0); MEAN PLATELET VOLUME 7.6 fl (7.4-10.4); PLATELET 390 x1000/uL (130-400); RED BLOOD CELL COUNT 3.02 mill/uL (4.7-6.1); RED CELL DISTRIBUTION WIDTH 18.2 % (11.6-14.6)
[2022-09-21] MEDS: LACTULOSE 20G/30ML UDC PO SCH (09:30)
[2022-09-21] MEDS: FOLIC ACID/VITAMIN B COMP W-C TABLET PO SCH (09:30)
[2022-09-21] MEDS: AMLODIPINE 5MG TABLET PO SCH (09:31)
[2022-09-21 14:15] LABS: PLATELET ESTIMATE NORMAL
[2022-09-22 04:00] VITALS: BP 144/71
[2022-09-22 05:44] LABS: HEMATOCRIT. 24.7 % (42.0-52.0); HEMOGLOBIN. 8.3 g/dL (14.0-18.0); MEAN CORPUSCULAR HEMOGLOBIN 29.9 pg (28.0-32.0); MEAN CORPUSCULAR VOLUME 89.3 fL (80.0-94.0); MEAN PLATELET VOLUME 8.1 fl (7.4-10.4); PLATELET 373 x1000/uL (130-400); RED BLOOD CELL COUNT 2.77 mill/uL (4.7-6.1); RED CELL DISTRIBUTION WIDTH 18.6 % (11.6-14.6)
[2022-09-22 08:00] VITALS: BP 163/69
[2022-09-22] MEDS: AMLODIPINE 5MG TABLET PO SCH ×2 (09:00→09:21)
[2022-09-22] MEDS: FOLIC ACID/VITAMIN B COMP W-C TABLET PO SCH (09:21)
[2022-09-22 12:00] VITALS: BP 156/54
[2022-09-22 13:51] LABS: HEPATITIS B SURFACE ANTIGEN NEGATIVE
[2022-09-22 13:59] LABS: NUCLEATED RED BLOOD CELLS 1 /100 WBC; PLATELET ESTIMATE NORMAL
[2022-09-22 16:00] VITALS: BP 166/55
[2022-09-22 20:00] VITALS: BP 115/57
[2022-09-23] VITALS: BP 99/57
[2022-09-23 04:00] VITALS: BP 146/55
[2022-09-23 07:24] LABS: HEMATOCRIT. 24.8 % (42.0-52.0); HEMOGLOBIN. 8.1 g/dL (14.0-18.0); MEAN CORPUSCULAR HEMOGLOBIN 29.4 pg (28.0-32.0); MEAN CORPUSCULAR VOLUME 90.5 fL (80.0-94.0); MEAN PLATELET VOLUME 7.6 fl (7.4-10.4); PLATELET 403 x1000/uL (130-400); RED BLOOD CELL COUNT 2.74 mill/uL (4.7-6.1); RED CELL DISTRIBUTION WIDTH 18.7 % (11.6-14.6)
[2022-09-23 08:00] VITALS: BP 140/67
[2022-09-23] MEDS: FOLIC ACID/VITAMIN B COMP W-C TABLET PO SCH (08:47)
[2022-09-23] MEDS: AMLODIPINE 5MG TABLET PO SCH (08:47)
[2022-09-23 09:39] LABS: PLATELET ESTIMATE NORMAL
[2022-09-23 12:00] VITALS: BP 131/77
[2022-09-23 16:00] VITALS: BP 135/78
[2022-09-23] MEDS ORDERED: ALLO300T2 MT (19:36)
[2022-09-23 20:00] VITALS: BP 101/51
[2022-09-23] MEDS: EPOETIN ALFA-EPBX 4,000 UNIT/ML VIAL SUBCUT SCH (20:39)
[2022-09-24] VITALS (10 sets, daily range): BP systolic 98–165; BP diastolic 45–90
[2022-09-24 06:29] LABS: BASOPHILS % 0.2 % (0.0-2.0); HEMATOCRIT. 25.1 % (42.0-52.0); HEMOGLOBIN. 8.3 g/dL (14.0-18.0); LYMPHOCYTES % 12.5 % (20.0-50.0); MEAN CORPUSCULAR HEMOGLOBIN 29.4 pg (28.0-32.0); MEAN CORPUSCULAR VOLUME 89.4 fL (80.0-94.0); MEAN PLATELET VOLUME 7.7 fl (7.4-10.4); MONOCYTES % 12.6 % (2.0-8.0); NEUTROPHILS % 74.7 % (40.0-76.0); PLATELET 445 x1000/uL (130-400); RED BLOOD CELL COUNT 2.81 mill/uL (4.7-6.1); RED CELL DISTRIBUTION WIDTH 18.3 % (11.6-14.6)
[2022-09-24] MEDS: FOLIC ACID/VITAMIN B COMP W-C TABLET PO SCH (09:39)
[2022-09-24] MEDS: AMLODIPINE 5MG TABLET PO SCH (09:39)
[2022-09-24] MEDS: PIPERACILLIN/TAZOBACTAM 3.375 G in DEXTROSE 5% WATER 50 ML IV SCH (23:31)
[2022-09-25] VITALS (7 sets, daily range): BP systolic 75–150; BP diastolic 38–66
[2022-09-25] MEDS ORDERED: VANCOMYCIN 1G PREMIX 200 ML IV NR
[2022-09-25] MEDS ORDERED: VANCOMYCIN 500MG PREMIX 100 ML IV NR (02:00)
[2022-09-25 08:08] LABS: BASOPHILS % 0.2 % (0.0-2.0); HEMATOCRIT. 22.5 % (42.0-52.0); HEMOGLOBIN. 7.4 g/dL (14.0-18.0); LYMPHOCYTES % 10.9 % (20.0-50.0); MEAN CORPUSCULAR HEMOGLOBIN 29.8 pg (28.0-32.0); MEAN CORPUSCULAR VOLUME 91.2 fL (80.0-94.0); MEAN PLATELET VOLUME 7.7 fl (7.4-10.4); MONOCYTES % 14.5 % (2.0-8.0); NEUTROPHILS % 74.4 % (40.0-76.0); PLATELET 408 x1000/uL (130-400); RED BLOOD CELL COUNT 2.47 mill/uL (4.7-6.1); RED CELL DISTRIBUTION WIDTH 18.6 % (11.6-14.6)
[2022-09-25] MEDS: FOLIC ACID/VITAMIN B COMP W-C TABLET PO SCH (09:00)
[2022-09-25] MEDS: PIPERACILLIN/TAZOBACTAM 3.375 G in DEXTROSE 5% WATER 50 ML IV SCH (10:06)
[2022-09-25] MEDS: ACETAMINOPHEN 650MG/20.3ML UDC PO PRN (10:07)
[2022-09-25] MEDS ORDERED: DAPTOMYCIN 750 MG in SODIUM CHLORIDE 0.9% 50 ML IV SCH (11:00)
[2022-09-25] MEDS ORDERED: MEROPENEM 1,000 MG in SODIUM CHLORIDE 0.9% 100 ML IV SCH (11:00)
[2022-09-25] MEDS: AMLODIPINE 5MG TABLET PO SCH (13:52)
[2022-09-25] MEDS: MEROPENEM 500MG in NORMAL SALINE 50ML IV SCH (13:52)
[2022-09-25] MEDS: DAPTOMYCIN 450 MG in SODIUM CHLORIDE 0.9% 50 ML IV SCH (15:33)
[2022-09-25] MEDS ORDERED: HYDRALAZINE 10 MG in SODIUM CHLORIDE 0.9% 49.5 ML IV PRN (15:45)
[2022-09-25 18:18] LABS: HEPATITIS B SURFACE ANTIGEN NEGATIVE
[2022-09-25] MEDS: EPOETIN ALFA-EPBX 4,000 UNIT/ML VIAL SUBCUT SCH (21:03)
[2022-09-26] VITALS: BP 107/59
[2022-09-26 04:00] VITALS: BP 98/57
[2022-09-26 06:33] LABS: BASOPHILS % 0.2 % (0.0-2.0); LYMPHOCYTES % 15.3 % (20.0-50.0); MEAN CORPUSCULAR HEMOGLOBIN 29.8 pg (28.0-32.0); MEAN CORPUSCULAR VOLUME 89.7 fL (80.0-94.0); MEAN PLATELET VOLUME 7.9 fl (7.4-10.4); MONOCYTES % 13.7 % (2.0-8.0); NEUTROPHILS % 68.8 % (40.0-76.0); PLATELET 395 x1000/uL (130-400); RED BLOOD CELL COUNT 2.68 mill/uL (4.7-6.1); RED CELL DISTRIBUTION WIDTH 18.3 % (11.6-14.6)
[2022-09-26 08:00] VITALS: BP 147/45
[2022-09-26] MEDS: FOLIC ACID/VITAMIN B COMP W-C TABLET PO SCH (09:00)
[2022-09-26] MEDS ORDERED: POTASSIUM CHLORIDE 20MEQ/PACKET PO NR (10:00)
[2022-09-26] MEDS: AMLODIPINE 5MG TABLET PO SCH (10:59)
[2022-09-26 12:00] VITALS: BP 162/61
[2022-09-26] MEDS: MEROPENEM 500MG in NORMAL SALINE 50ML IV SCH (15:14)
[2022-09-26 16:00] VITALS: BP 157/79
[2022-09-26 20:00] VITALS: BP 103/60
[2022-09-26] MEDS: EPOETIN ALFA-EPBX 4,000 UNIT/ML VIAL SUBCUT SCH (21:27)
[2022-09-27] VITALS: BP 100/70
[2022-09-27 04:00] VITALS: BP 109/60
[2022-09-27 08:00] VITALS: BP 153/52
[2022-09-27] MEDS: FOLIC ACID/VITAMIN B COMP W-C TABLET PO SCH (09:00)
[2022-09-27 09:21] LABS: BASOPHILS % 0.5 % (0.0-2.0); HEMATOCRIT. 24.2 % (42.0-52.0); HEMOGLOBIN. 7.8 g/dL (14.0-18.0); MEAN CORPUSCULAR HEMOGLOBIN 29.2 pg (28.0-32.0); MEAN CORPUSCULAR VOLUME 90.6 fL (80.0-94.0); MEAN PLATELET VOLUME 7.6 fl (7.4-10.4); MONOCYTES % 13.4 % (2.0-8.0); NEUTROPHILS % 67.1 % (40.0-76.0); PLATELET 412 x1000/uL (130-400); RED BLOOD CELL COUNT 2.67 mill/uL (4.7-6.1); RED CELL DISTRIBUTION WIDTH 17.9 % (11.6-14.6)
[2022-09-27] MEDS: AMLODIPINE 5MG TABLET PO SCH (10:18)
[2022-09-27 12:00] VITALS: BP 149/56
[2022-09-27] MEDS: DAPTOMYCIN 450 MG in SODIUM CHLORIDE 0.9% 50 ML IV SCH (14:00)
[2022-09-27] MEDS: MEROPENEM 500MG in NORMAL SALINE 50ML IV SCH (14:30)
[2022-09-27 20:00] VITALS: BP 139/41
[2022-09-28] VITALS: BP 148/70
[2022-09-28 04:00] VITALS: BP 131/64
[2022-09-28 08:00] VITALS: BP 97/39
[2022-09-28] MEDS: AMLODIPINE 5MG TABLET PO SCH (09:26)
[2022-09-28] MEDS: FOLIC ACID/VITAMIN B COMP W-C TABLET PO SCH (09:30)
[2022-09-28 12:00] VITALS: BP 119/48
[2022-09-28] MEDS: MEROPENEM 500MG in NORMAL SALINE 50ML IV SCH (13:10)
[2022-09-28 20:00] VITALS: BP 99/42
[2022-09-29] VITALS: BP 136/39
[2022-09-29 04:00] VITALS: BP 129/46
[2022-09-29 07:09] LABS: HEMATOCRIT. 25.8 % (42.0-52.0); HEMOGLOBIN. 8.4 g/dL (14.0-18.0); MEAN CORPUSCULAR HEMOGLOBIN 29.5 pg (28.0-32.0); MEAN CORPUSCULAR VOLUME 91.2 fL (80.0-94.0); MEAN PLATELET VOLUME 7.5 fl (7.4-10.4); PLATELET 447 x1000/uL (130-400); RED BLOOD CELL COUNT 2.83 mill/uL (4.7-6.1); RED CELL DISTRIBUTION WIDTH 17.8 % (11.6-14.6)
[2022-09-29 08:00] VITALS: BP 133/45
[2022-09-29] MEDS: AMLODIPINE 5MG TABLET PO SCH (10:31)
[2022-09-29] MEDS: FOLIC ACID/VITAMIN B COMP W-C TABLET PO SCH (10:43)
[2022-09-29 11:58] VITALS: BP 128/50
[2022-09-29 13:49] LABS: PLATELET ESTIMATE INCREASED
[2022-09-29] MEDS: MEROPENEM 500MG in NORMAL SALINE 50ML IV SCH (15:22)
[2022-09-29] MEDS: DAPTOMYCIN 450 MG in SODIUM CHLORIDE 0.9% 50 ML IV SCH (15:22)
[2022-09-29 16:00] VITALS: BP 118/56
[2022-09-29 20:00] VITALS: BP 98/62
[2022-09-29 20:32] LABS: HEPATITIS B SURFACE ANTIGEN NEGATIVE
[2022-09-29] MEDS: EPOETIN ALFA-EPBX 4,000 UNIT/ML VIAL SUBCUT SCH (21:02)
[2022-09-30] VITALS (9 sets, daily range): BP systolic 110–145; BP diastolic 41–64
[2022-09-30 08:52] LABS: HEMATOCRIT. 24.7 % (42.0-52.0); HEMOGLOBIN. 7.9 g/dL (14.0-18.0); MEAN CORPUSCULAR VOLUME 91.3 fL (80.0-94.0); MEAN PLATELET VOLUME 7.6 fl (7.4-10.4); PLATELET 428 x1000/uL (130-400); RED BLOOD CELL COUNT 2.71 mill/uL (4.7-6.1); RED CELL DISTRIBUTION WIDTH 18.2 % (11.6-14.6)
[2022-09-30] MEDS: FOLIC ACID/VITAMIN B COMP W-C TABLET PO SCH (09:18)
[2022-09-30] MEDS: AMLODIPINE 5MG TABLET PO SCH (09:20)
[2022-09-30] MEDS: MEROPENEM 500MG in NORMAL SALINE 50ML IV SCH (15:17)
[2022-09-30] MEDS: DAPTOMYCIN 450 MG in SODIUM CHLORIDE 0.9% 50 ML IV SCH (15:17)
[2022-09-30 18:58] LABS: PLATELET ESTIMATE INCREASED
[2022-09-30] MEDS: ACETAMINOPHEN 650MG/20.3ML UDC PO PRN (22:07)
[2022-10-01] VITALS (14 sets, daily range): BP systolic 100–140; BP diastolic 46–79
[2022-10-01 08:24] LABS: HEMATOCRIT. 36.6 % (42.0-52.0); HEMOGLOBIN. 10.8 g/dL (14.0-18.0); MEAN CORPUSCULAR HEMOGLOBIN 29.5 pg (28.0-32.0); MEAN CORPUSCULAR VOLUME 99.8 fL (80.0-94.0); MEAN PLATELET VOLUME 7.2 fl (7.4-10.4); PLATELET 421 x1000/uL (130-400); RED BLOOD CELL COUNT 3.66 mill/uL (4.7-6.1); RED CELL DISTRIBUTION WIDTH 19.7 % (11.6-14.6)
[2022-10-01] MEDS: FOLIC ACID/VITAMIN B COMP W-C TABLET PO SCH (09:00)
[2022-10-01] MEDS: AMLODIPINE 5MG TABLET PO SCH (11:08)
[2022-10-01] MEDS: ACETAMINOPHEN 650MG/20.3ML UDC PO PRN (11:12)
[2022-10-01 13:48] LABS: NUCLEATED RED BLOOD CELLS 2 /100 WBC
[2022-10-01 13:49] LABS: PLATELET ESTIMATE SLIGHTLY INCREASED
[2022-10-01] MEDS: MEROPENEM 500MG in NORMAL SALINE 50ML IV SCH (15:30)
[2022-10-01] MEDS: EPOETIN ALFA-EPBX 4,000 UNIT/ML VIAL SUBCUT SCH (20:43)
[2022-10-02 04:00] VITALS: BP 132/50
[2022-10-02 08:00] VITALS: BP 111/53
[2022-10-02] MEDS: FOLIC ACID/VITAMIN B COMP W-C TABLET PO SCH (09:00)
[2022-10-02 09:32] LABS: CREATINE KINASE 70 IU/L (39-308)
[2022-10-02] MEDS: MEGESTROL ACETATE 400 MG/10 ML UDC PO SCH (10:57)
[2022-10-02] MEDS: AMLODIPINE 5MG TABLET PO SCH (10:59)
[2022-10-02 12:00] VITALS: BP 130/60
[2022-10-02] MEDS: MEROPENEM 500MG in NORMAL SALINE 50ML IV SCH (14:48)
[2022-10-02 15:57] LABS: HEPATITIS B SURFACE ANTIGEN NEGATIVE
[2022-10-02 16:00] VITALS: BP 131/53
[2022-10-02 20:00] VITALS: BP 119/35
[2022-10-03] VITALS (9 sets, daily range): BP systolic 117–163; BP diastolic 56–84
[2022-10-03 07:47] LABS: BASOPHILS % 0.5 % (0.0-2.0); EOSINOPHILS % 0.6 % (0.0-5.0); HEMATOCRIT. 28.1 % (42.0-52.0); LYMPHOCYTES % 19.5 % (20.0-50.0); MEAN CORPUSCULAR HEMOGLOBIN 29.5 pg (28.0-32.0); MEAN CORPUSCULAR VOLUME 91.8 fL (80.0-94.0); MEAN PLATELET VOLUME 7.4 fl (7.4-10.4); MONOCYTES % 12.3 % (2.0-8.0); NEUTROPHILS % 67.1 % (40.0-76.0); PLATELET 445 x1000/uL (130-400); RED BLOOD CELL COUNT 3.06 mill/uL (4.7-6.1); RED CELL DISTRIBUTION WIDTH 19.1 % (11.6-14.6)
[2022-10-03] MEDS: MEGESTROL ACETATE 400 MG/10 ML UDC PO SCH (09:40)
[2022-10-03] MEDS: FOLIC ACID/VITAMIN B COMP W-C TABLET PO SCH (09:40)
[2022-10-03] MEDS: AMLODIPINE 5MG TABLET PO SCH (09:41)
[2022-10-03] MEDS: ACETAMINOPHEN 650MG/20.3ML UDC PO PRN (09:42)
[2022-10-03] MEDS: MEROPENEM 500MG in NORMAL SALINE 50ML IV SCH (14:00)
[2022-10-03] MEDS: DAPTOMYCIN 450 MG in SODIUM CHLORIDE 0.9% 50 ML IV SCH (14:00)
== END 2022-10-03 14:10 | DRG 853 ==
LOC: ER 11:27 → EDBEDREQTM 12:10 → EDBEDREQ 12:10 → EDBEDREQSVC 12:10 → 7WST 13:43 → EDBEDREQ 13:47 → 7WST 08-27 19:05 → 6EST 09-24 20:53
PROVIDERS: ADMIT Internal Medicine; ATTEND Internal Medicine
PROC: 4A00X4Z Measurement of Central Nervous Electrical Activity, External Approach (ICD-10-PCS; 2022-08-22)
PROC: 5A1D70Z Performance of Urinary Filtration, Intermittent, Less than 6 Hours Per Day (ICD-10-PCS; 2022-08-22)
PROC: 0QB10ZZ Excision of Sacrum, Open Approach (ICD-10-PCS; principal; 2022-08-25)
PROC: 5A1D70Z Performance of Urinary Filtration, Intermittent, Less than 6 Hours Per Day (ICD-10-PCS; 2022-08-25)
PROC: 30233N1 Transfusion of Nonautologous Red Blood Cells into Peripheral Vein, Percutaneous Approach (ICD-10-PCS; 2022-08-26)
PROC: 5A1D70Z Performance of Urinary Filtration, Intermittent, Less than 6 Hours Per Day (ICD-10-PCS; 2022-08-27)
PROC: 02HV33Z Insertion of Infusion Device into Superior Vena Cava, Percutaneous Approach (ICD-10-PCS; 2022-08-28)
PROC: B518YZA Fluoroscopy of Superior Vena Cava using Other Contrast, Guidance (ICD-10-PCS; 2022-08-28)
PROC: B548ZZA Ultrasonography of Superior Vena Cava, Guidance (ICD-10-PCS; 2022-08-28)
PROC: 5A1D70Z Performance of Urinary Filtration, Intermittent, Less than 6 Hours Per Day (ICD-10-PCS; 2022-08-29)
PROC: 5A1D70Z Performance of Urinary Filtration, Intermittent, Less than 6 Hours Per Day (ICD-10-PCS; 2022-09-01)
PROC: 5A1D70Z Performance of Urinary Filtration, Intermittent, Less than 6 Hours Per Day (ICD-10-PCS; 2022-09-03)
PROC: 5A1D70Z Performance of Urinary Filtration, Intermittent, Less than 6 Hours Per Day (ICD-10-PCS; 2022-09-05)
PROC: 5A1D70Z Performance of Urinary Filtration, Intermittent, Less than 6 Hours Per Day (ICD-10-PCS; 2022-09-08)
PROC: 5A1D70Z Performance of Urinary Filtration, Intermittent, Less than 6 Hours Per Day (ICD-10-PCS; 2022-09-10)
PROC: 5A1D70Z Performance of Urinary Filtration, Intermittent, Less than 6 Hours Per Day (ICD-10-PCS; 2022-09-12)
PROC: 5A1D70Z Performance of Urinary Filtration, Intermittent, Less than 6 Hours Per Day (ICD-10-PCS; 2022-09-15)
PROC: 5A1D70Z Performance of Urinary Filtration, Intermittent, Less than 6 Hours Per Day (ICD-10-PCS; 2022-09-17)
PROC: 5A1D70Z Performance of Urinary Filtration, Intermittent, Less than 6 Hours Per Day (ICD-10-PCS; 2022-09-19)
PROC: 5A1D70Z Performance of Urinary Filtration, Intermittent, Less than 6 Hours Per Day (ICD-10-PCS; 2022-09-22)
PROC: 5A1D70Z Performance of Urinary Filtration, Intermittent, Less than 6 Hours Per Day (ICD-10-PCS; 2022-09-24)
PROC: 5A1D70Z Performance of Urinary Filtration, Intermittent, Less than 6 Hours Per Day (ICD-10-PCS; 2022-09-24)
PROC: 5A1D70Z Performance of Urinary Filtration, Intermittent, Less than 6 Hours Per Day (ICD-10-PCS; 2022-09-30)
PROC: 5A1D70Z Performance of Urinary Filtration, Intermittent, Less than 6 Hours Per Day (ICD-10-PCS; 2022-10-01)
PROC: 5A1D70Z Performance of Urinary Filtration, Intermittent, Less than 6 Hours Per Day (ICD-10-PCS; 2022-10-03)
DX: A41.9 Sepsis, unspecified organism (principal); E43 Unspecified severe protein-calorie malnutrition; L89.154 Pressure ulcer of sacral region, stage 4; N18.6 End stage renal disease; G92.8 Other toxic encephalopathy; J15.0 Pneumonia due to Klebsiella pneumoniae; I12.0 Hypertensive chronic kidney disease with stage 5 chronic kidney disease or end stage renal disease; E11.52 Type 2 diabetes mellitus with diabetic peripheral angiopathy with gangrene; E72.4 Disorders of ornithine metabolism; E87.20 Acidosis, unspecified; L03.115 Cellulitis of right lower limb; L03.116 Cellulitis of left lower limb; M46.28 Osteomyelitis of vertebra, sacral and sacrococcygeal region; L97.329 Non-pressure chronic ulcer of left ankle with unspecified severity; L97.319 Non-pressure chronic ulcer of right ankle with unspecified severity; M54.30 Sciatica, unspecified side; M48.061 Spinal stenosis, lumbar region without neurogenic claudication; E11.22 Type 2 diabetes mellitus with diabetic chronic kidney disease; E78.5 Hyperlipidemia, unspecified; E87.8 Other disorders of electrolyte and fluid balance, not elsewhere classified; D63.1 Anemia in chronic kidney disease; K80.20 Calculus of gallbladder without cholecystitis without obstruction; E53.8 Deficiency of other specified B group vitamins; R65.20 Severe sepsis without septic shock; E88.09 Other disorders of plasma-protein metabolism, not elsewhere classified; N40.1 Benign prostatic hyperplasia with lower urinary tract symptoms; R33.8 Other retention of urine; E11.69 Type 2 diabetes mellitus with other specified complication; L89.619 Pressure ulcer of right heel, unspecified stage; F01.50 Vascular dementia, unspecified severity, without behavioral disturbance, psychotic disturbance, mood disturbance, and anxiety; L89.629 Pressure ulcer of left heel, unspecified stage; Z99.2 Dependence on renal dialysis; Z74.01 Bed confinement status; Z79.02 Long term (current) use of antithrombotics/antiplatelets; Z86.73 Personal history of transient ischemic attack (TIA), and cerebral infarction without residual deficits; B19.20 Unspecified viral hepatitis C without hepatic coma; Z87.891 Personal history of nicotine dependence; Z68.31 Body mass index [BMI] 31.0-31.9, adult
CPT/HCPCS: 36415; 36573; 70496; 70498; 70551; 71045; 73650; 80048; 80053; 80202; 80320; 82140; 82270; 82550; 82607; 82728; 82746; 82962; 83540; 83550; 83605; 84145; 84484; 85018; 85025; 85044; 86705; 86709; 86803; 86850; 86900; 86920; 87015; 87045; 87070; 87075; 87077; 87186; 87340; 87426; 87427; 87449; 87804; 88305; 88311; 89055; 90935; 92610; 93005; 93923; 95816; 97162; 99291; A6261; C1725; C1769; C1893; J0360; J0692; J0878; J0885; J1100; J1956; J2185; J2250; J2370; J2405; J2543; J2704; J3010; J3370; J3490; J7030; J7050; J7060; P9016; Q9967; G0480

== ENCOUNTER 2022-11-06 12:14 | Inpatient (IN) | payer MEDICARE, MEDICAID ==
[~2022-11-06] VITALS: Ht 182.9 cm; Wt 62.1 kg
[2022-11-06] VITALS (22 sets, daily range): BP systolic 75–154; BP diastolic 41–84
[~2022-11-06 12:14] MED LIST changes: +ALLO300T2 MT; +AMLO5TAB88 PO; -ATOR-2 PO; +ATOR20TA PO; +CLOP-31 PO; +DOXA2TAB2 PO; +DUTA1CPM4 PO; +GABA-529 PO; +METO25TA6 PO; +PROT40 PO; -TAMS-11 PO
[2022-11-06] MEDS ORDERED: SODIUM CHLORIDE 0.9% 250 ML IV ONE (13:45)
[2022-11-06 14:03] LABS: HEMATOCRIT. 27.6 % (42.0-52.0); HEMOGLOBIN. 8.7 g/dL (14.0-18.0); MEAN CORPUSCULAR HEMOGLOBIN 28.6 pg (28.0-32.0); MEAN PLATELET VOLUME 8.1 fl (7.4-10.4); PLATELET 411 x1000/uL (130-400); RED BLOOD CELL COUNT 3.03 mill/uL (4.7-6.1)
[2022-11-06 14:12] LABS: PROTHROMBIN TIME 10.9 sec (9.6-11.0)
[2022-11-06] MEDS ORDERED: DEXTROSE 50% WATER 50ML SYRINGE IV ONE (14:15)
[2022-11-06 14:19] LABS: PLATELET ESTIMATE INCREASED
[2022-11-06] MEDS ORDERED: NOREPINEPHRINE 8 MG in DEXT 5% WATER 242 ML IV STA (14:40)
[2022-11-06] MEDS ORDERED: CEFEPIME 1,000 MG in DEXTROSE 5% WATER 50 ML IV NR (15:15)
[2022-11-06] MEDS ORDERED: VANCOMYCIN 1G PREMIX 200 ML IV NR (15:15)
[2022-11-06] MEDS ORDERED: NOREPINEPHRINE 8 MG in DEXT 5% WATER 242 ML IV SCH (15:30)
[2022-11-06 16:04] LABS: CHLORIDE 99 mEq/L (98-107)
[2022-11-06] MEDS ORDERED: CEFTRIAXONE 1 G PREMIX 50 ML IV SCH (21:00)
[2022-11-06] MEDS ORDERED: NALOXONE HCL 0.4MG/ML VIAL IV PRN (21:00)
[2022-11-06] MEDS ORDERED: MAGNESIUM/ALUMINUM HYDROXIDE/SIMETHICONE 30ML UDC PO PRN (21:00)
[2022-11-06] MEDS ORDERED: ONDANSETRON HCL 4MG/2ML INJ IV PRN (21:00)
[2022-11-06] MEDS ORDERED: DOCUSATE SODIUM 100MG CAPSULE PO PRN (21:00)
[2022-11-06] MEDS: ENOXAPARIN 30MG/0.3ML SYR SUBCUT SCH (22:17)
[2022-11-06] MEDS: GUAIFENESIN 200MG/10ML SUGAR FREE UDC PO PRN (22:34)
[2022-11-06] MEDS: MIDODRINE HCL 5MG TABLET PO SCH (22:35)
[2022-11-06] MEDS: TRAMADOL 50MG TABLET PO PRN (22:35)
[2022-11-06] MEDS: NOREPINEPHRINE 8 MG in DEXT 5% WATER 242 ML IV PRN (22:54)
[2022-11-06] MEDS ORDERED: AZITHROMYCIN 500 MG in DEXT 5% WATER 250 ML IV SCH (23:00)
[2022-11-07] VITALS (95 sets, daily range): BP systolic 79–175; BP diastolic 35–105
[2022-11-07] MEDS: SODIUM CHLORIDE 0.9% 1,000 ML IV SCH ×2 (01:44→13:14)
[2022-11-07] MEDS: GUAIFENESIN 200MG/10ML SUGAR FREE UDC PO PRN ×2 (03:52→21:37)
[2022-11-07] MEDS: TRAMADOL 50MG TABLET PO PRN (04:34)
[2022-11-07 06:29] LABS: BASOPHILS % 0.1 % (0.0-2.0); EOSINOPHILS % 0.2 % (0.0-5.0); HEMATOCRIT. 28.3 % (42.0-52.0); HEMOGLOBIN. 8.8 g/dL (14.0-18.0); LYMPHOCYTES % 11.2 % (20.0-50.0); MEAN CORPUSCULAR HEMOGLOBIN 28.5 pg (28.0-32.0); MEAN CORPUSCULAR VOLUME 91.7 fL (80.0-94.0); MEAN PLATELET VOLUME 8.2 fl (7.4-10.4); MONOCYTES % 5.9 % (2.0-8.0); NEUTROPHILS % 82.6 % (40.0-76.0); PLATELET 449 x1000/uL (130-400); RED BLOOD CELL COUNT 3.09 mill/uL (4.7-6.1); RED CELL DISTRIBUTION WIDTH 19.1 % (11.6-14.6)
[2022-11-07] MEDS: NOREPINEPHRINE 8 MG in DEXT 5% WATER 242 ML IV PRN (07:50)
[2022-11-07] MEDS ORDERED: CEFTRIAXONE 1,000 MG in DEXTROSE 5% WATER 50 ML IV SCH (09:00)
[2022-11-07] MEDS: MIDODRINE HCL 5MG TABLET PO SCH ×3 (09:25→16:56)
[2022-11-07] MEDS ORDERED: IPRATROPIUM/ALBUTEROL 0.5-3(2.5)MG/3ML NEB HHN PRN (09:45)
[2022-11-07 10:43] LABS: CHLORIDE 98 mEq/L (98-107)
[2022-11-07 11:10] LABS: HDL CHOLESTEROL 20 mg/dL (40-59); LDL CHOLESTEROL 41 mg/dL (5-100)
[2022-11-07] MEDS: MORPHINE SULFATE 2 MG/ML CPJ (NOT FOR IM USE) IV PRN ×3 (12:36→21:55)
[2022-11-07] MEDS: PIPERACILLIN/TAZOBACTAM 3.375 G in DEXTROSE 5% WATER 50 ML IV SCH ×2 (12:36→21:36)
[2022-11-07] MEDS ORDERED: LIDOCAINE HCL 1% 10 MG/ML 10ML VIAL ONE (12:53)
[2022-11-07 17:25] LABS: HEPATITIS B SURFACE ANTIGEN NEGATIVE
[2022-11-07] MEDS: SODIUM HYPOCHLORITE 0.125% 473ML SOLUTION TOP SCH (18:00)
[2022-11-07] MEDS: ENOXAPARIN 30MG/0.3ML SYR SUBCUT SCH (21:37)
[2022-11-07] MEDS: EPOETIN ALFA-EPBX 4,000 UNIT/ML VIAL SUBCUT SCH (22:03)
[2022-11-08] VITALS (89 sets, daily range): BP systolic 73–133; BP diastolic 28–87
[2022-11-08] MEDS: TRAMADOL 50MG TABLET PO PRN (03:13)
[2022-11-08] MEDS: PIPERACILLIN/TAZOBACTAM 3.375 G in DEXTROSE 5% WATER 50 ML IV SCH ×2 (08:00→20:39)
[2022-11-08] MEDS: SODIUM HYPOCHLORITE 0.125% 473ML SOLUTION TOP SCH (08:01)
[2022-11-08] MEDS: MIDODRINE HCL 5MG TABLET PO SCH ×3 (08:01→17:14)
[2022-11-08] MEDS: MORPHINE SULFATE 2 MG/ML CPJ (NOT FOR IM USE) IV PRN ×2 (08:02→15:09)
[2022-11-08 09:20] LABS: BASOPHILS % 0.2 % (0.0-2.0); EOSINOPHILS % 0.1 % (0.0-5.0); HEMATOCRIT. 24.2 % (42.0-52.0); HEMOGLOBIN. 7.6 g/dL (14.0-18.0); LYMPHOCYTES % 11.3 % (20.0-50.0); MEAN CORPUSCULAR HEMOGLOBIN 28.1 pg (28.0-32.0); MEAN CORPUSCULAR VOLUME 90.2 fL (80.0-94.0); MEAN PLATELET VOLUME 8.2 fl (7.4-10.4); MONOCYTES % 5.7 % (2.0-8.0); NEUTROPHILS % 82.7 % (40.0-76.0); PLATELET 367 x1000/uL (130-400); RED BLOOD CELL COUNT 2.69 mill/uL (4.7-6.1); RED CELL DISTRIBUTION WIDTH 18.7 % (11.6-14.6)
[2022-11-08] MEDS ORDERED: VANCOMYCIN 1G PREMIX 200 ML IV SCH (14:00)
[2022-11-08] MEDS: ENOXAPARIN 30MG/0.3ML SYR SUBCUT SCH (20:51)
[2022-11-08] MEDS: NOREPINEPHRINE 8 MG in DEXT 5% WATER 242 ML IV PRN (21:15)
[2022-11-09] VITALS (94 sets, daily range): BP systolic 2–167; BP diastolic 24–100
[2022-11-09] MEDS: MIDODRINE HCL 5MG TABLET PO SCH ×3 (09:35→18:53)
[2022-11-09] MEDS: PIPERACILLIN/TAZOBACTAM 3.375 G in DEXTROSE 5% WATER 50 ML IV SCH ×2 (09:35→20:41)
[2022-11-09] MEDS: SODIUM HYPOCHLORITE 0.125% 473ML SOLUTION TOP SCH (09:36)
[2022-11-09] MEDS: NOREPINEPHRINE 8 MG in DEXT 5% WATER 242 ML IV PRN ×2 (10:57→20:43)
[2022-11-09] MEDS: ENOXAPARIN 30MG/0.3ML SYR SUBCUT SCH (20:42)
[2022-11-10] VITALS (94 sets, daily range): BP systolic 70–153; BP diastolic 34–102
[2022-11-10] MEDS: NOREPINEPHRINE 8 MG in DEXT 5% WATER 242 ML IV PRN ×3 (03:04→18:40)
[2022-11-10] MEDS: PIPERACILLIN/TAZOBACTAM 3.375 G in DEXTROSE 5% WATER 50 ML IV SCH (08:12)
[2022-11-10] MEDS: SODIUM HYPOCHLORITE 0.125% 473ML SOLUTION TOP SCH (08:12)
[2022-11-10] MEDS: MIDODRINE HCL 5MG TABLET PO SCH ×3 (08:13→21:27)
[2022-11-10 12:32] LABS: BASOPHILS % 0.1 % (0.0-2.0); EOSINOPHILS % 0.1 % (0.0-5.0); HEMATOCRIT. 27.3 % (42.0-52.0); HEMOGLOBIN. 8.6 g/dL (14.0-18.0); LYMPHOCYTES % 10.7 % (20.0-50.0); MEAN CORPUSCULAR HEMOGLOBIN 28.2 pg (28.0-32.0); MEAN CORPUSCULAR VOLUME 89.2 fL (80.0-94.0); MEAN PLATELET VOLUME 7.7 fl (7.4-10.4); MONOCYTES % 5.6 % (2.0-8.0); NEUTROPHILS % 83.5 % (40.0-76.0); PLATELET 314 x1000/uL (130-400); RED BLOOD CELL COUNT 3.06 mill/uL (4.7-6.1); RED CELL DISTRIBUTION WIDTH 18.8 % (11.6-14.6)
[2022-11-10 13:10] LABS: CHLORIDE 97 mEq/L (98-107)
[2022-11-10] MEDS ORDERED: CEFTRIAXONE 2 G PREMIX 50 ML IV SCH (17:00)
[2022-11-10] MEDS: MEROPENEM 500 MG in SODIUM CHLORIDE 0.9% 50 ML IV SCH (18:41)
[2022-11-10] MEDS: EPOETIN ALFA-EPBX 4,000 UNIT/ML VIAL SUBCUT SCH (21:25)
[2022-11-10] MEDS: ENOXAPARIN 30MG/0.3ML SYR SUBCUT SCH (21:26)
[2022-11-11] VITALS (87 sets, daily range): BP systolic 85–168; BP diastolic 29–106
[2022-11-11] MEDS: NOREPINEPHRINE 8 MG in DEXT 5% WATER 242 ML IV PRN ×2 (02:27→14:28)
[2022-11-11] MEDS: MEROPENEM 500 MG in SODIUM CHLORIDE 0.9% 50 ML IV SCH (06:01)
[2022-11-11] MEDS: MIDODRINE HCL 5MG TABLET PO SCH ×3 (06:03→22:18)
[2022-11-11] MEDS: SODIUM HYPOCHLORITE 0.125% 473ML SOLUTION TOP SCH (09:07)
[2022-11-11 11:04] LABS: BASOPHILS % 0.2 % (0.0-2.0); EOSINOPHILS % 0.6 % (0.0-5.0); HEMATOCRIT. 24.8 % (42.0-52.0); LYMPHOCYTES % 13.2 % (20.0-50.0); MEAN CORPUSCULAR HEMOGLOBIN 28.9 pg (28.0-32.0); MEAN PLATELET VOLUME 8.3 fl (7.4-10.4); MONOCYTES % 5.8 % (2.0-8.0); NEUTROPHILS % 80.2 % (40.0-76.0); PLATELET 256 x1000/uL (130-400); RED BLOOD CELL COUNT 2.78 mill/uL (4.7-6.1); RED CELL DISTRIBUTION WIDTH 19.1 % (11.6-14.6)
[2022-11-11 11:25] LABS: CHLORIDE 98 mEq/L (98-107)
[2022-11-11 12:39] LABS: BG BASE EXCESS 0.7 mmol/L (-2.0-2.0); BG CARBOXYHEMOGLOBIN 0.3 % (0.5-1.5); BG DEOXYHEMOGLOBIN 1.6 % (0.0-5.0); BG FRACTION INSPIRED OXYGEN 32; BG HCO3 ACT 23.5 mmol/L (22.0-26.0); BG METHEMOGLOBIN 0.4 % (0.0-1.5); BG OXYGEN SATURATION 98.4 % (92.0-98.5); BG OXYHEMOGLOBIN 97.7 % (94.0-97.0); BG PCO2 30.4 mmHg (35.0-45.0); BG PH 7.506 (7.350-7.450); BG PO2 111.6 mmHg (75.0-100.0); BG SAMPLE SITE RIGHT BRACHIAL; BG TOTAL HEMOGLOBIN 8.7 g/dL (12.0-18.0); BG VENT MODE NASAL CANNULA
[2022-11-11 16:21] LABS: HEPATITIS B SURFACE ANTIGEN NEGATIVE
[2022-11-11] MEDS: ENOXAPARIN 30MG/0.3ML SYR SUBCUT SCH (20:44)
[2022-11-12] VITALS (74 sets, daily range): BP systolic 82–150; BP diastolic 37–84
[2022-11-12] MEDS: MIDODRINE HCL 5MG TABLET PO SCH ×3 (05:44→21:29)
[2022-11-12 06:17] LABS: HEMATOCRIT 29.4 % (42.0-52.0); HEMOGLOBIN 9.2 g/dL (14.0-18.0); MEAN CORPUSCULAR HEMOGLOBIN 29.1 pg (28.0-32.0); MEAN CORPUSCULAR VOLUME 93.1 fL (80.0-94.0); PHOSPHORUS 3.6 mg/dL (2.5-4.9); PLATELET 96 x1000/uL (130-400); RED BLOOD CELL COUNT 3.16 mill/uL (4.7-6.1); RED CELL DISTRIBUTION WIDTH 19.4 % (11.6-14.6)
[2022-11-12] MEDS: SODIUM HYPOCHLORITE 0.125% 473ML SOLUTION TOP SCH (09:00)
[2022-11-12] MEDS: MEROPENEM 500 MG in SODIUM CHLORIDE 0.9% 50 ML IV SCH (17:00)
[2022-11-12] MEDS: EPOETIN ALFA-EPBX 4,000 UNIT/ML VIAL SUBCUT SCH (21:29)
[2022-11-13] VITALS (47 sets, daily range): BP systolic 77–187; BP diastolic 41–147
[2022-11-13] MEDS: MIDODRINE HCL 5MG TABLET PO SCH ×3 (05:25→21:04)
[2022-11-13 05:57] LABS: HEMOGLOBIN 8.3 g/dL (14.0-18.0); MEAN CORPUSCULAR HEMOGLOBIN 28.4 pg (28.0-32.0); MEAN CORPUSCULAR VOLUME 92.7 fL (80.0-94.0); PLATELET 240 x1000/uL (130-400); RED BLOOD CELL COUNT 2.91 mill/uL (4.7-6.1); RED CELL DISTRIBUTION WIDTH 19.1 % (11.6-14.6)
[2022-11-13 06:06] LABS: PHOSPHORUS 2.6 mg/dL (2.5-4.9)
[2022-11-13] MEDS: SODIUM HYPOCHLORITE 0.125% 473ML SOLUTION TOP SCH (09:00)
[2022-11-13] MEDS ORDERED: METOCLOPRAMIDE HCL 10MG/2ML VIAL IV SCH (12:00)
[2022-11-13] MEDS: METOCLOPRAMIDE HCL 10MG/2ML VIAL IV SCH ×3 (12:00→21:04)
[2022-11-13] MEDS: MEROPENEM 500 MG in SODIUM CHLORIDE 0.9% 50 ML IV SCH (17:43)
[2022-11-14] VITALS (9 sets, daily range): BP systolic 107–127; BP diastolic 50–80
[2022-11-14] MEDS: MIDODRINE HCL 5MG TABLET PO SCH ×3 (05:49→21:59)
[2022-11-14] MEDS: METOCLOPRAMIDE HCL 10MG/2ML VIAL IV SCH ×2 (06:35→13:20)
[2022-11-14] MEDS: SODIUM HYPOCHLORITE 0.125% 473ML SOLUTION TOP SCH (09:00)
[2022-11-14] MEDS: MEROPENEM 500 MG in SODIUM CHLORIDE 0.9% 50 ML IV SCH (21:26)
[2022-11-15] VITALS: BP 99/51
[2022-11-15] MEDS: ACETAMINOPHEN 325MG TABLET PO PRN (01:18)
[2022-11-15 04:00] VITALS: BP 108/55
[2022-11-15] MEDS: MIDODRINE HCL 5MG TABLET PO SCH ×3 (05:18→21:03)
[2022-11-15] MEDS: METOCLOPRAMIDE HCL 10MG/2ML VIAL IV SCH ×5 (07:05→21:02)
[2022-11-15 08:00] VITALS: BP 107/57
[2022-11-15] MEDS: SODIUM HYPOCHLORITE 0.125% 473ML SOLUTION TOP SCH (09:00)
[2022-11-15 12:00] VITALS: BP 139/53
[2022-11-15] MEDS: FOLIC ACID/VITAMIN B COMP W-C TABLET PO SCH (14:42)
[2022-11-15 16:00] VITALS: BP 139/53
[2022-11-15] MEDS: MEROPENEM 500 MG in SODIUM CHLORIDE 0.9% 50 ML IV SCH (18:00)
[2022-11-15 20:00] VITALS: BP 110/50
[2022-11-15] MEDS: EPOETIN ALFA-EPBX 4,000 UNIT/ML VIAL SUBCUT SCH (21:02)
[2022-11-16 00:17] VITALS: BP 162/92
[2022-11-16 04:00] VITALS: BP 118/47
[2022-11-16] MEDS: MIDODRINE HCL 5MG TABLET PO SCH ×3 (05:33→22:00)
[2022-11-16] MEDS: ACETAMINOPHEN 325MG TABLET PO PRN (05:33)
[2022-11-16] MEDS: METOCLOPRAMIDE HCL 10MG/2ML VIAL IV SCH ×4 (07:39→22:00)
[2022-11-16 08:00] VITALS: BP 148/64
[2022-11-16] MEDS: SODIUM HYPOCHLORITE 0.125% 473ML SOLUTION TOP SCH (09:00)
[2022-11-16 11:41] VITALS: BP 138/58
[2022-11-16] MEDS: FOLIC ACID/VITAMIN B COMP W-C TABLET PO SCH (12:06)
[2022-11-16 15:57] VITALS: BP 149/59
[2022-11-16] MEDS: MEROPENEM 500 MG in SODIUM CHLORIDE 0.9% 50 ML IV SCH (17:28)
[2022-11-16 20:00] VITALS: BP 169/49
[2022-11-16 22:35] LABS: HEPATITIS B SURFACE ANTIGEN NEGATIVE
[2022-11-17] VITALS (14 sets, daily range): BP systolic 131–197; BP diastolic 41–72
[2022-11-17] MEDS: ACETAMINOPHEN 325MG TABLET PO PRN (00:53)
[2022-11-17] MEDS: MIDODRINE HCL 5MG TABLET PO SCH ×3 (05:54→21:08)
[2022-11-17] MEDS: METOCLOPRAMIDE HCL 10MG/2ML VIAL IV SCH ×4 (06:33→21:08)
[2022-11-17] MEDS: HYDRALAZINE 20MG/ML VIAL IV PRN ×2 (06:39→10:16)
[2022-11-17] MEDS: SODIUM HYPOCHLORITE 0.125% 473ML SOLUTION TOP SCH (09:22)
[2022-11-17] MEDS: FOLIC ACID/VITAMIN B COMP W-C TABLET PO SCH (09:23)
[2022-11-17] MEDS: GUAIFENESIN 200MG/10ML SUGAR FREE UDC PO PRN (11:08)
[2022-11-17] MEDS: MEROPENEM 500 MG in SODIUM CHLORIDE 0.9% 50 ML IV SCH (17:23)
[2022-11-18] VITALS: BP 159/73
[2022-11-18 04:00] VITALS: BP 163/47
[2022-11-18] MEDS: MIDODRINE HCL 5MG TABLET PO SCH ×3 (06:00→16:58)
[2022-11-18] MEDS: METOCLOPRAMIDE HCL 10MG/2ML VIAL IV SCH ×4 (06:28→22:07)
[2022-11-18 08:00] VITALS: BP 126/51
[2022-11-18] MEDS: SODIUM HYPOCHLORITE 0.125% 473ML SOLUTION TOP SCH (09:00)
[2022-11-18] MEDS: GUAIFENESIN 200MG/10ML SUGAR FREE UDC PO PRN (10:23)
[2022-11-18] MEDS: FOLIC ACID/VITAMIN B COMP W-C TABLET PO SCH (10:23)
[2022-11-18 12:00] VITALS: BP 145/56
[2022-11-18 16:00] VITALS: BP 124/51
[2022-11-18 20:00] VITALS: BP 134/50
[2022-11-18] MEDS: MEROPENEM 500 MG in SODIUM CHLORIDE 0.9% 50 ML IV SCH (22:07)
[2022-11-18] MEDS: LINEZOLID 600MG TABLET PO SCH (22:07)
[2022-11-19] VITALS (16 sets, daily range): BP systolic 96–138; BP diastolic 40–66
[2022-11-19 00:02] LABS: BASOPHILS % 0.1 % (0.0-2.0); EOSINOPHILS % 0.2 % (0.0-5.0); HEMATOCRIT. 24.7 % (42.0-52.0); HEMOGLOBIN. 7.6 g/dL (14.0-18.0); LYMPHOCYTES % 12.8 % (20.0-50.0); MEAN CORPUSCULAR HEMOGLOBIN 29.3 pg (28.0-32.0); MEAN CORPUSCULAR VOLUME 95.5 fL (80.0-94.0); MEAN PLATELET VOLUME 8.9 fl (7.4-10.4); MONOCYTES % 5.8 % (2.0-8.0); NEUTROPHILS % 81.1 % (40.0-76.0); PLATELET 275 x1000/uL (130-400); RED BLOOD CELL COUNT 2.59 mill/uL (4.7-6.1); RED CELL DISTRIBUTION WIDTH 23.8 % (11.6-14.6)
[2022-11-19] MEDS: EPOETIN ALFA-EPBX 4,000 UNIT/ML VIAL SUBCUT SCH (00:51)
[2022-11-19] MEDS: METOCLOPRAMIDE HCL 10MG/2ML VIAL IV SCH ×4 (06:20→21:17)
[2022-11-19] MEDS: MIDODRINE HCL 5MG TABLET PO SCH ×3 (06:21→21:17)
[2022-11-19] MEDS: SODIUM HYPOCHLORITE 0.125% 473ML SOLUTION TOP SCH (09:00)
[2022-11-19] MEDS: FOLIC ACID/VITAMIN B COMP W-C TABLET PO SCH (10:00)
[2022-11-19] MEDS: LINEZOLID 600MG TABLET PO SCH ×2 (10:00→21:16)
[2022-11-19 12:39] LABS: BASOPHILS % 0.1 % (0.0-2.0); EOSINOPHILS % 0.2 % (0.0-5.0); HEMATOCRIT. 25.3 % (42.0-52.0); HEMOGLOBIN. 7.7 g/dL (14.0-18.0); LYMPHOCYTES % 13.4 % (20.0-50.0); MEAN CORPUSCULAR HEMOGLOBIN 29.5 pg (28.0-32.0); MEAN CORPUSCULAR VOLUME 96.6 fL (80.0-94.0); MEAN PLATELET VOLUME 8.6 fl (7.4-10.4); MONOCYTES % 5.8 % (2.0-8.0); NEUTROPHILS % 80.5 % (40.0-76.0); PLATELET 271 x1000/uL (130-400); RED BLOOD CELL COUNT 2.62 mill/uL (4.7-6.1); RED CELL DISTRIBUTION WIDTH 24.1 % (11.6-14.6)
[2022-11-19 12:45] LABS: PROTHROMBIN TIME 10.3 sec (9.6-11.0)
[2022-11-19 13:07] LABS: PLATELET ESTIMATE NORMAL
[2022-11-19 13:21] LABS: FOLIC ACID (FOLATE) SERUM >20 ng/mL ng/mL (>5.38); VITAMIN B12 SERUM 1763 pg/mL (211-911)
[2022-11-19 14:08] LABS: CHLORIDE 107 mEq/L (98-107)
[2022-11-19 14:23] LABS: TOTAL IRON BINDING CAPACITY 75 ug/dL (250-450)
[2022-11-19 15:27] LABS: FERRITIN 1336 ng/mL (22-322)
[2022-11-19] MEDS: MEROPENEM 500 MG in SODIUM CHLORIDE 0.9% 50 ML IV SCH (17:56)
[2022-11-19] MEDS: POTASSIUM CHLORIDE INJ 40 MEQ in DEXT 5% WATER 250 ML IV SCH ×2 (17:56→23:16)
[2022-11-20] VITALS: BP 119/66
[2022-11-20 04:00] VITALS: BP 101/60
[2022-11-20] MEDS: MIDODRINE HCL 5MG TABLET PO SCH ×3 (06:06→20:39)
[2022-11-20] MEDS: METOCLOPRAMIDE HCL 10MG/2ML VIAL IV SCH ×4 (06:06→20:38)
[2022-11-20 07:24] LABS: BASOPHILS % 0.2 % (0.0-2.0); EOSINOPHILS % 0.3 % (0.0-5.0); HEMATOCRIT. 24.7 % (42.0-52.0); HEMOGLOBIN. 7.7 g/dL (14.0-18.0); LYMPHOCYTES % 15.2 % (20.0-50.0); MEAN CORPUSCULAR HEMOGLOBIN 29.8 pg (28.0-32.0); MEAN PLATELET VOLUME 8.8 fl (7.4-10.4); MONOCYTES % 6.7 % (2.0-8.0); NEUTROPHILS % 77.6 % (40.0-76.0); PLATELET 300 x1000/uL (130-400); RED CELL DISTRIBUTION WIDTH 23.6 % (11.6-14.6)
[2022-11-20 07:48] LABS: INR 0.9; PROTHROMBIN TIME 10.2 sec (9.6-11.0)
[2022-11-20 08:00] VITALS: BP 129/85
[2022-11-20] MEDS: LINEZOLID 600MG TABLET PO SCH ×2 (08:28→20:39)
[2022-11-20] MEDS: FOLIC ACID/VITAMIN B COMP W-C TABLET PO SCH (08:28)
[2022-11-20] MEDS: SODIUM HYPOCHLORITE 0.125% 473ML SOLUTION TOP SCH (08:28)
[2022-11-20 12:00] VITALS: BP 105/52
[2022-11-20 15:35] LABS: HEPATITIS B SURFACE ANTIGEN NEGATIVE
[2022-11-20 16:00] VITALS: BP 108/45
[2022-11-20] MEDS: PANTOPRAZOLE SODIUM 40 MG/VIAL IV SCH (18:26)
[2022-11-20] MEDS: MEROPENEM 500 MG in SODIUM CHLORIDE 0.9% 50 ML IV SCH (18:26)
[2022-11-20 20:00] VITALS: BP 113/51
[2022-11-20] MEDS: EPOETIN ALFA-EPBX 4,000 UNIT/ML VIAL SUBCUT SCH (20:39)
[2022-11-21] VITALS (17 sets, daily range): BP systolic 82–143; BP diastolic 35–80
[2022-11-21 03:43] LABS: HEMATOCRIT. 24.5 % (42.0-52.0); HEMOGLOBIN. 7.3 g/dL (14.0-18.0); MEAN CORPUSCULAR HEMOGLOBIN 29.2 pg (28.0-32.0); MEAN CORPUSCULAR VOLUME 97.9 fL (80.0-94.0); MEAN PLATELET VOLUME 8.9 fl (7.4-10.4); PLATELET 328 x1000/uL (130-400); RED CELL DISTRIBUTION WIDTH 24.6 % (11.6-14.6)
[2022-11-21 03:46] LABS: INR 0.9; PROTHROMBIN TIME 10.2 sec (9.6-11.0)
[2022-11-21] MEDS: MIDODRINE HCL 5MG TABLET PO SCH ×4 (06:00→21:19)
[2022-11-21] MEDS: METOCLOPRAMIDE HCL 10MG/2ML VIAL IV SCH ×4 (06:32→23:36)
[2022-11-21] MEDS: FOLIC ACID/VITAMIN B COMP W-C TABLET PO SCH (09:00)
[2022-11-21] MEDS ORDERED: KCL 20MEQ/100ML PREMIX 100 ML IV SCH (09:00)
[2022-11-21] MEDS: LINEZOLID 600MG TABLET PO SCH ×2 (09:00→21:19)
[2022-11-21] MEDS: SODIUM HYPOCHLORITE 0.125% 473ML SOLUTION TOP SCH (09:05)
[2022-11-21] MEDS: PANTOPRAZOLE SODIUM 40 MG/VIAL IV SCH ×2 (09:05→17:33)
[2022-11-21] MEDS ORDERED: MIDAZOLAM HCL 2 MG/2 ML VIAL ONE ×2 (14:41→15:26)
[2022-11-21] MEDS ORDERED: EPHEDRINE SULFATE 50MG/ML VIAL ONE (14:42)
[2022-11-21] MEDS ORDERED: ETOMIDATE 2MG/ML 10ML VIAL IV ONE (14:42)
[2022-11-21] MEDS ORDERED: PHENYLEPHRINE HCL 10 MG/ML 1ML (IV VIAL) IV ONE (14:42)
[2022-11-21] MEDS ORDERED: PROPOFOL 200MG/20ML VIAL IV ONE (15:33)
[2022-11-21] MEDS: MEROPENEM 500 MG in SODIUM CHLORIDE 0.9% 50 ML IV SCH (17:33)
[2022-11-21 18:22] LABS: BG BASE EXCESS 1.6 mmol/L (-2.0-2.0); BG CARBOXYHEMOGLOBIN 0.7 % (0.5-1.5); BG DEOXYHEMOGLOBIN 1.6 % (0.0-5.0); BG FRACTION INSPIRED OXYGEN 28; BG HCO3 ACT 25.7 mmol/L (22.0-26.0); BG METHEMOGLOBIN 0.4 % (0.0-1.5); BG OXYGEN SATURATION 98.4 % (92.0-98.5); BG OXYHEMOGLOBIN 97.3 % (94.0-97.0); BG PCO2 38.5 mmHg (35.0-45.0); BG PH 7.442 (7.350-7.450); BG SAMPLE SITE UAL; BG TOTAL HEMOGLOBIN 10.5 g/dL (12.0-18.0); BG VENT MODE NASAL CANNULA
[2022-11-21 19:57] LABS: HEMATOCRIT 29.1 % (42.0-52.0); HEMOGLOBIN 9.2 g/dL (14.0-18.0)
[2022-11-22] VITALS (7 sets, daily range): BP systolic 96–157; BP diastolic 32–79
[2022-11-22] MEDS: METOCLOPRAMIDE HCL 10MG/2ML VIAL IV SCH ×4 (06:15→23:25)
[2022-11-22] MEDS: MIDODRINE HCL 5MG TABLET PO SCH ×3 (06:15→21:10)
[2022-11-22 07:00] LABS: BASOPHILS % 0.1 % (0.0-2.0); EOSINOPHILS % 0.2 % (0.0-5.0); HEMATOCRIT. 29.9 % (42.0-52.0); HEMOGLOBIN. 9.7 g/dL (14.0-18.0); LYMPHOCYTES % 15.4 % (20.0-50.0); MEAN CORPUSCULAR HEMOGLOBIN 30.1 pg (28.0-32.0); MEAN CORPUSCULAR VOLUME 93.2 fL (80.0-94.0); MEAN PLATELET VOLUME 8.4 fl (7.4-10.4); MONOCYTES % 6.8 % (2.0-8.0); NEUTROPHILS % 77.5 % (40.0-76.0); PLATELET 329 x1000/uL (130-400); RED BLOOD CELL COUNT 3.21 mill/uL (4.7-6.1); RED CELL DISTRIBUTION WIDTH 21.8 % (11.6-14.6)
[2022-11-22] MEDS: LINEZOLID 600MG TABLET PO SCH ×2 (09:25→21:09)
[2022-11-22] MEDS: FOLIC ACID/VITAMIN B COMP W-C TABLET PO SCH (09:25)
[2022-11-22] MEDS: PANTOPRAZOLE SODIUM 40 MG/VIAL IV SCH ×2 (09:26→18:10)
[2022-11-22] MEDS: SODIUM HYPOCHLORITE 0.125% 473ML SOLUTION TOP SCH (09:28)
[2022-11-22] MEDS: MEROPENEM 1,000 MG in SODIUM CHLORIDE 0.9% 100 ML IV SCH ×2 (13:44→21:09)
[2022-11-23] VITALS: BP 130/53
[2022-11-23 04:00] VITALS: BP 122/81
[2022-11-23] MEDS: METOCLOPRAMIDE HCL 10MG/2ML VIAL IV SCH ×6 (05:07→23:50)
[2022-11-23] MEDS: MIDODRINE HCL 5MG TABLET PO SCH ×3 (05:08→21:08)
[2022-11-23 07:45] LABS: BASOPHILS % 0.3 % (0.0-2.0); EOSINOPHILS % 0.1 % (0.0-5.0); HEMATOCRIT. 27.1 % (42.0-52.0); HEMOGLOBIN. 8.7 g/dL (14.0-18.0); MEAN CORPUSCULAR HEMOGLOBIN 30.3 pg (28.0-32.0); MEAN CORPUSCULAR VOLUME 94.8 fL (80.0-94.0); MEAN PLATELET VOLUME 8.4 fl (7.4-10.4); MONOCYTES % 8.8 % (2.0-8.0); NEUTROPHILS % 65.8 % (40.0-76.0); PLATELET 291 x1000/uL (130-400); RED BLOOD CELL COUNT 2.86 mill/uL (4.7-6.1); RED CELL DISTRIBUTION WIDTH 23.1 % (11.6-14.6)
[2022-11-23 08:00] VITALS: BP 114/63
[2022-11-23] MEDS: FOLIC ACID/VITAMIN B COMP W-C TABLET PO SCH (09:03)
[2022-11-23] MEDS: LINEZOLID 600MG TABLET PO SCH ×2 (09:03→20:50)
[2022-11-23] MEDS: MEROPENEM 1,000 MG in SODIUM CHLORIDE 0.9% 100 ML IV SCH ×2 (09:03→20:50)
[2022-11-23] MEDS: PANTOPRAZOLE SODIUM 40 MG/VIAL IV SCH ×2 (09:03→17:56)
[2022-11-23] MEDS: SODIUM HYPOCHLORITE 0.125% 473ML SOLUTION TOP SCH (09:04)
[2022-11-23] MEDS ORDERED: KCL 20MEQ/100ML PREMIX 100 ML IV NR (10:00)
[2022-11-23 12:00] VITALS: BP 126/73
[2022-11-23 16:00] VITALS: BP 127/62
[2022-11-23 19:47] LABS: HEPATITIS B SURFACE ANTIGEN NEGATIVE
[2022-11-23 20:00] VITALS: BP 110/54
[2022-11-24] VITALS: BP 117/57
[2022-11-24 04:00] VITALS: BP 135/62
[2022-11-24] MEDS: MIDODRINE HCL 5MG TABLET PO SCH ×3 (05:16→21:07)
[2022-11-24 08:00] VITALS: BP 110/72
[2022-11-24] MEDS: SODIUM HYPOCHLORITE 0.125% 473ML SOLUTION TOP SCH (09:00)
[2022-11-24] MEDS: FOLIC ACID/VITAMIN B COMP W-C TABLET PO SCH (10:58)
[2022-11-24] MEDS: LINEZOLID 600MG TABLET PO SCH ×2 (10:58→20:59)
[2022-11-24] MEDS: PANTOPRAZOLE SODIUM 40 MG/VIAL IV SCH ×2 (10:58→16:57)
[2022-11-24] MEDS: MEROPENEM 1,000 MG in SODIUM CHLORIDE 0.9% 100 ML IV SCH (10:58)
[2022-11-24 12:00] VITALS: BP 133/87
[2022-11-24 16:00] VITALS: BP 143/72
[2022-11-24 20:00] VITALS: BP 131/67
[2022-11-24] MEDS: EPOETIN ALFA-EPBX 4,000 UNIT/ML VIAL SUBCUT SCH (21:07)
[2022-11-25] VITALS (15 sets, daily range): BP systolic 105–143; BP diastolic 49–71
[2022-11-25] MEDS: MIDODRINE HCL 5MG TABLET PO SCH ×3 (05:40→20:27)
[2022-11-25] MEDS ORDERED: MEROPENEM 1,000 MG in SODIUM CHLORIDE 0.9% 100 ML IV SCH (09:00)
[2022-11-25] MEDS: FOLIC ACID/VITAMIN B COMP W-C TABLET PO SCH (09:01)
[2022-11-25] MEDS: LINEZOLID 600MG TABLET PO SCH ×2 (09:02→20:27)
[2022-11-25] MEDS: PANTOPRAZOLE SODIUM 40 MG/VIAL IV SCH ×2 (09:02→16:56)
[2022-11-25] MEDS: SODIUM HYPOCHLORITE 0.125% 473ML SOLUTION TOP SCH (13:57)
[2022-11-26] VITALS (7 sets, daily range): BP systolic 95–152; BP diastolic 52–84
[2022-11-26] MEDS: MIDODRINE HCL 5MG TABLET PO SCH ×3 (05:19→21:51)
[2022-11-26] MEDS: PANTOPRAZOLE SODIUM 40 MG/VIAL IV SCH ×2 (09:40→17:36)
[2022-11-26] MEDS: SODIUM HYPOCHLORITE 0.125% 473ML SOLUTION TOP SCH (09:40)
[2022-11-26] MEDS: FOLIC ACID/VITAMIN B COMP W-C TABLET PO SCH (09:40)
[2022-11-26] MEDS: EPOETIN ALFA-EPBX 4,000 UNIT/ML VIAL SUBCUT SCH (21:51)
[2022-11-27] VITALS (9 sets, daily range): BP systolic 112–145; BP diastolic 54–71
[2022-11-27] MEDS: MIDODRINE HCL 5MG TABLET PO SCH ×3 (06:45→21:22)
[2022-11-27 07:07] LABS: BASOPHILS % 0.2 % (0.0-2.0); EOSINOPHILS % 0.4 % (0.0-5.0); HEMATOCRIT. 31.4 % (42.0-52.0); HEMOGLOBIN. 9.9 g/dL (14.0-18.0); LYMPHOCYTES % 40.3 % (20.0-50.0); MEAN CORPUSCULAR HEMOGLOBIN 30.2 pg (28.0-32.0); MEAN CORPUSCULAR VOLUME 95.8 fL (80.0-94.0); MEAN PLATELET VOLUME 8.5 fl (7.4-10.4); MONOCYTES % 7.4 % (2.0-8.0); NEUTROPHILS % 51.7 % (40.0-76.0); PLATELET 272 x1000/uL (130-400); RED BLOOD CELL COUNT 3.28 mill/uL (4.7-6.1); RED CELL DISTRIBUTION WIDTH 22.2 % (11.6-14.6)
[2022-11-27] MEDS: PANTOPRAZOLE SODIUM 40 MG/VIAL IV SCH ×2 (08:10→16:47)
[2022-11-27] MEDS: FOLIC ACID/VITAMIN B COMP W-C TABLET PO SCH (08:10)
[2022-11-27] MEDS: SODIUM HYPOCHLORITE 0.125% 473ML SOLUTION TOP SCH (08:11)
[2022-11-27 13:50] LABS: PLATELET ESTIMATE NORMAL
[2022-11-28] VITALS: BP 142/59
[2022-11-28 04:00] VITALS: BP 154/58
[2022-11-28] MEDS: MIDODRINE HCL 5MG TABLET PO SCH ×3 (06:00→21:16)
[2022-11-28] MEDS: PANTOPRAZOLE SODIUM 40 MG/VIAL IV SCH ×3 (06:17→17:33)
[2022-11-28 08:00] VITALS: BP 144/63
[2022-11-28] MEDS: FOLIC ACID/VITAMIN B COMP W-C TABLET PO SCH (08:38)
[2022-11-28] MEDS: SODIUM HYPOCHLORITE 0.125% 473ML SOLUTION TOP SCH (08:39)
[2022-11-28 12:00] VITALS: BP 136/69
[2022-11-28 16:00] VITALS: BP 141/73
[2022-11-28 20:00] VITALS: BP 134/74
[2022-11-28] MEDS: EPOETIN ALFA-EPBX 4,000 UNIT/ML VIAL SUBCUT SCH (21:16)
[2022-11-29] VITALS (11 sets, daily range): BP systolic 103–165; BP diastolic 52–73
[2022-11-29] MEDS: MIDODRINE HCL 5MG TABLET PO SCH ×3 (06:12→22:00)
[2022-11-29] MEDS: FOLIC ACID/VITAMIN B COMP W-C TABLET PO SCH (09:32)
[2022-11-29] MEDS: PANTOPRAZOLE SODIUM 40 MG/VIAL IV SCH ×2 (09:32→16:18)
[2022-11-29] MEDS: SODIUM HYPOCHLORITE 0.125% 473ML SOLUTION TOP SCH (09:33)
[2022-11-30] VITALS: BP 142/51
[2022-11-30 04:00] VITALS: BP 128/63
[2022-11-30] MEDS: MIDODRINE HCL 5MG TABLET PO SCH ×3 (06:29→21:57)
[2022-11-30 08:00] VITALS: BP 136/51
[2022-11-30] MEDS: PANTOPRAZOLE SODIUM 40 MG/VIAL IV SCH ×2 (09:53→16:47)
[2022-11-30] MEDS: FOLIC ACID/VITAMIN B COMP W-C TABLET PO SCH (09:54)
[2022-11-30] MEDS: SODIUM HYPOCHLORITE 0.125% 473ML SOLUTION TOP SCH (09:54)
[2022-11-30 12:00] VITALS: BP 135/43
[2022-11-30 16:00] VITALS: BP 107/57
[2022-11-30] MEDS: GUAIFENESIN 200MG/10ML SUGAR FREE UDC PO PRN (16:52)
[2022-11-30 20:00] VITALS: BP 157/59
[2022-12-01] VITALS: BP 141/55
[2022-12-01 04:00] VITALS: BP 144/58
[2022-12-01] MEDS: MIDODRINE HCL 5MG TABLET PO SCH ×3 (05:07→22:00)
[2022-12-01 08:00] VITALS: BP 110/51
[2022-12-01] MEDS: PANTOPRAZOLE SODIUM 40 MG/VIAL IV SCH ×2 (08:54→19:12)
[2022-12-01] MEDS: SODIUM HYPOCHLORITE 0.125% 473ML SOLUTION TOP SCH (08:55)
[2022-12-01] MEDS: FOLIC ACID/VITAMIN B COMP W-C TABLET PO SCH (08:55)
[2022-12-01 12:00] VITALS: BP 112/62
[2022-12-01 16:00] VITALS: BP 117/81
[2022-12-01] MEDS ORDERED: HYDRALAZINE 10 MG in SODIUM CHLORIDE 0.9% 49.5 ML IV PRN (17:45)
[2022-12-01 20:00] VITALS: BP 134/69
[2022-12-02] VITALS (11 sets, daily range): BP systolic 84–129; BP diastolic 40–70
[2022-12-02] MEDS: MIDODRINE HCL 5MG TABLET PO SCH ×3 (05:42→21:09)
[2022-12-02] MEDS: PANTOPRAZOLE SODIUM 40 MG/VIAL IV SCH ×2 (08:21→17:35)
[2022-12-02] MEDS: FOLIC ACID/VITAMIN B COMP W-C TABLET PO SCH (08:21)
[2022-12-02] MEDS: SODIUM HYPOCHLORITE 0.125% 473ML SOLUTION TOP SCH (09:00)
[2022-12-03] VITALS: BP 99/49
[2022-12-03 04:00] VITALS: BP 98/43
[2022-12-03] MEDS: MIDODRINE HCL 5MG TABLET PO SCH ×3 (05:12→22:00)
[2022-12-03 08:00] VITALS: BP 113/61
[2022-12-03] MEDS: FOLIC ACID/VITAMIN B COMP W-C TABLET PO SCH (09:00)
[2022-12-03] MEDS: PANTOPRAZOLE SODIUM 40 MG/VIAL IV SCH ×2 (09:00→18:43)
[2022-12-03] MEDS: SODIUM HYPOCHLORITE 0.125% 473ML SOLUTION TOP SCH (09:00)
[2022-12-03 12:00] VITALS: BP 137/76
[2022-12-03] MEDS: ACETAMINOPHEN 325MG TABLET PO PRN (14:53)
[2022-12-03 16:00] VITALS: BP 123/74
[2022-12-03] MEDS: GUAIFENESIN 200MG/10ML SUGAR FREE UDC PO PRN (18:43)
[2022-12-03 20:00] VITALS: BP 100/46
[2022-12-04] VITALS (10 sets, daily range): BP systolic 84–116; BP diastolic 45–64
[2022-12-04] MEDS: PANTOPRAZOLE SODIUM 40 MG/VIAL IV SCH ×2 (08:53→17:44)
[2022-12-04] MEDS: FOLIC ACID/VITAMIN B COMP W-C TABLET PO SCH (08:53)
[2022-12-04] MEDS: MIDODRINE HCL 5MG TABLET PO SCH (14:12)
[2022-12-04 22:33] LABS: HEPATITIS B SURFACE ANTIGEN NEGATIVE
[2022-12-05] VITALS: BP 76/33
[2022-12-05] MEDS ORDERED: SODIUM CHLORIDE 0.9% 500 ML IV ONE (01:00)
[2022-12-05] MEDS ORDERED: SODIUM CHLORIDE 0.9% 500 ML IV SCH (02:00)
[2022-12-05 04:00] VITALS: BP 81/39
[2022-12-05 08:00] VITALS: BP 85/52
[2022-12-05] MEDS: PANTOPRAZOLE SODIUM 40 MG/VIAL IV SCH ×2 (08:27→18:28)
[2022-12-05] MEDS: FOLIC ACID/VITAMIN B COMP W-C TABLET PO SCH (08:27)
[2022-12-05] MEDS: SODIUM HYPOCHLORITE 0.125% 473ML SOLUTION TOP SCH (08:28)
[2022-12-05] MEDS: MIDODRINE HCL 5MG TABLET PO SCH ×3 (09:17→18:28)
[2022-12-05 12:05] VITALS: BP 99/76
[2022-12-05] MEDS ORDERED: HYDRALAZINE 20MG/ML VIAL IV PRN (14:00)
[2022-12-05] MEDS: BENZONATATE 100MG CAPSULE PO PRN (15:57)
[2022-12-05 20:00] VITALS: BP 124/64
[2022-12-06] VITALS (13 sets, daily range): BP systolic 105–188; BP diastolic 46–96
[2022-12-06] MEDS: MIDODRINE HCL 5MG TABLET PO SCH ×3 (09:14→17:09)
[2022-12-06] MEDS: FOLIC ACID/VITAMIN B COMP W-C TABLET PO SCH (09:14)
[2022-12-06] MEDS: PANTOPRAZOLE SODIUM 40 MG/VIAL IV SCH ×2 (09:14→17:08)
[2022-12-06 11:41] LABS: BASOPHILS % 0.3 % (0.0-2.0); EOSINOPHILS % 0.6 % (0.0-5.0); HEMATOCRIT. 27.5 % (42.0-52.0); LYMPHOCYTES % 17.5 % (20.0-50.0); MEAN CORPUSCULAR HEMOGLOBIN 31.2 pg (28.0-32.0); MEAN CORPUSCULAR VOLUME 95.6 fL (80.0-94.0); MEAN PLATELET VOLUME 8.9 fl (7.4-10.4); MONOCYTES % 9.4 % (2.0-8.0); NEUTROPHILS % 72.2 % (40.0-76.0); PLATELET 383 x1000/uL (130-400); RED BLOOD CELL COUNT 2.88 mill/uL (4.7-6.1)
[2022-12-07] VITALS: BP 102/63
[2022-12-07 04:00] VITALS: BP 138/77
[2022-12-07 06:58] LABS: BASOPHILS % 0.2 % (0.0-2.0); EOSINOPHILS % 0.1 % (0.0-5.0); HEMOGLOBIN. 8.8 g/dL (14.0-18.0); LYMPHOCYTES % 12.3 % (20.0-50.0); MEAN CORPUSCULAR VOLUME 95.3 fL (80.0-94.0); MONOCYTES % 10.3 % (2.0-8.0); NEUTROPHILS % 77.1 % (40.0-76.0); PLATELET 377 x1000/uL (130-400); RED BLOOD CELL COUNT 2.84 mill/uL (4.7-6.1); RED CELL DISTRIBUTION WIDTH 21.6 % (11.6-14.6)
[2022-12-07 08:00] VITALS: BP 129/48
[2022-12-07] MEDS: FOLIC ACID/VITAMIN B COMP W-C TABLET PO SCH (09:37)
[2022-12-07] MEDS: MIDODRINE HCL 5MG TABLET PO SCH ×3 (09:37→17:00)
[2022-12-07] MEDS: PANTOPRAZOLE SODIUM 40 MG/VIAL IV SCH ×2 (09:38→17:58)
[2022-12-07 12:00] VITALS: BP 139/54
[2022-12-07 16:00] VITALS: BP 157/67
[2022-12-07] MEDS: MEROPENEM 1,000 MG in SODIUM CHLORIDE 0.9% 100 ML IV SCH (17:59)
[2022-12-07 20:00] VITALS: BP 135/58
[2022-12-08] VITALS: BP 108/54
[2022-12-08 04:00] VITALS: BP 115/61
[2022-12-08 08:00] VITALS: BP 136/68
[2022-12-08] MEDS: MIDODRINE HCL 5MG TABLET PO SCH ×3 (09:00→17:00)
[2022-12-08] MEDS: FOLIC ACID/VITAMIN B COMP W-C TABLET PO SCH (09:25)
[2022-12-08] MEDS: PANTOPRAZOLE SODIUM 40 MG/VIAL IV SCH ×2 (09:25→17:42)
[2022-12-08 12:00] VITALS: BP 143/71
[2022-12-08 16:00] VITALS: BP 134/62
[2022-12-08] MEDS: MEROPENEM 1,000 MG in SODIUM CHLORIDE 0.9% 100 ML IV SCH (17:43)
[2022-12-09] VITALS (15 sets, daily range): BP systolic 94–132; BP diastolic 50–81
[2022-12-09] MEDS: FOLIC ACID/VITAMIN B COMP W-C TABLET PO SCH (09:06)
[2022-12-09] MEDS: PANTOPRAZOLE SODIUM 40 MG/VIAL IV SCH ×2 (09:07→15:28)
[2022-12-09] MEDS: MIDODRINE HCL 5MG TABLET PO SCH ×3 (09:07→15:28)
[2022-12-09] MEDS: BENZONATATE 100MG CAPSULE PO PRN (09:07)
[2022-12-09 10:41] LABS: BASOPHILS % 0.3 % (0.0-2.0); EOSINOPHILS % 0.4 % (0.0-5.0); HEMATOCRIT. 26.6 % (42.0-52.0); HEMOGLOBIN. 8.7 g/dL (14.0-18.0); LYMPHOCYTES % 23.4 % (20.0-50.0); MEAN CORPUSCULAR HEMOGLOBIN 31.2 pg (28.0-32.0); MEAN PLATELET VOLUME 8.8 fl (7.4-10.4); MONOCYTES % 14.2 % (2.0-8.0); NEUTROPHILS % 61.7 % (40.0-76.0); PLATELET 381 x1000/uL (130-400); RED BLOOD CELL COUNT 2.77 mill/uL (4.7-6.1); RED CELL DISTRIBUTION WIDTH 21.1 % (11.6-14.6)
[2022-12-09 10:54] LABS: MEAN CORPUSCULAR VOLUME 95.8 fL (80.0-94.0)
[2022-12-09] MEDS: MEROPENEM 1,000 MG in SODIUM CHLORIDE 0.9% 100 ML IV SCH (15:26)
[2022-12-10] VITALS: BP 119/78
[2022-12-10 04:00] VITALS: BP 120/90
[2022-12-10 08:00] VITALS: BP 116/58
[2022-12-10] MEDS: FOLIC ACID/VITAMIN B COMP W-C TABLET PO SCH (09:15)
[2022-12-10] MEDS: PANTOPRAZOLE SODIUM 40 MG/VIAL IV SCH ×2 (09:19→17:05)
[2022-12-10] MEDS: MIDODRINE HCL 5MG TABLET PO SCH ×3 (09:19→17:00)
[2022-12-10 12:30] VITALS: BP 132/64
[2022-12-10 16:00] VITALS: BP 130/58
[2022-12-10] MEDS: MEROPENEM 1,000 MG in SODIUM CHLORIDE 0.9% 100 ML IV SCH (17:05)
[2022-12-10 20:00] VITALS: BP 144/80
[2022-12-11] VITALS (14 sets, daily range): BP systolic 70–144; BP diastolic 38–86
[2022-12-11 06:49] LABS: HEMATOCRIT. 28.1 % (42.0-52.0); HEMOGLOBIN. 9.2 g/dL (14.0-18.0); MEAN CORPUSCULAR HEMOGLOBIN 31.1 pg (28.0-32.0); MEAN CORPUSCULAR VOLUME 94.7 fL (80.0-94.0); MEAN PLATELET VOLUME 8.7 fl (7.4-10.4); PLATELET 478 x1000/uL (130-400); RED BLOOD CELL COUNT 2.97 mill/uL (4.7-6.1); RED CELL DISTRIBUTION WIDTH 20.4 % (11.6-14.6)
[2022-12-11] MEDS: MIDODRINE HCL 5MG TABLET PO SCH ×3 (08:36→17:31)
[2022-12-11] MEDS: FOLIC ACID/VITAMIN B COMP W-C TABLET PO SCH (08:36)
[2022-12-11] MEDS: PANTOPRAZOLE SODIUM 40 MG/VIAL IV SCH ×2 (09:05→17:17)
[2022-12-11] MEDS: MEROPENEM 1,000 MG in SODIUM CHLORIDE 0.9% 100 ML IV SCH (15:27)
[2022-12-11 16:12] LABS: PLATELET ESTIMATE INCREASED
[2022-12-12] VITALS: BP 111/49
[2022-12-12 04:00] VITALS: BP 133/69
[2022-12-12 08:00] VITALS: BP 128/62
[2022-12-12 08:12] LABS: BASOPHILS % 0.4 % (0.0-2.0); EOSINOPHILS % 0.3 % (0.0-5.0); HEMATOCRIT. 24.5 % (42.0-52.0); HEMOGLOBIN. 8.3 g/dL (14.0-18.0); LYMPHOCYTES % 21.7 % (20.0-50.0); MEAN CORPUSCULAR HEMOGLOBIN 32.3 pg (28.0-32.0); MEAN CORPUSCULAR VOLUME 95.6 fL (80.0-94.0); MONOCYTES % 14.9 % (2.0-8.0); NEUTROPHILS % 62.7 % (40.0-76.0); PLATELET 396 x1000/uL (130-400); RED BLOOD CELL COUNT 2.56 mill/uL (4.7-6.1); RED CELL DISTRIBUTION WIDTH 20.8 % (11.6-14.6)
[2022-12-12] MEDS ORDERED: POTASSIUM CHLORIDE 20MEQ/PACKET PO NR (08:15)
[2022-12-12] MEDS: PANTOPRAZOLE SODIUM 40 MG/VIAL IV SCH ×2 (10:30→18:07)
[2022-12-12] MEDS: MIDODRINE HCL 5MG TABLET PO SCH ×3 (10:30→18:08)
[2022-12-12] MEDS: FOLIC ACID/VITAMIN B COMP W-C TABLET PO SCH (10:30)
[2022-12-12 12:00] VITALS: BP 132/42
[2022-12-12] MEDS: MEROPENEM 1,000 MG in SODIUM CHLORIDE 0.9% 100 ML IV SCH (15:12)
[2022-12-12 16:00] VITALS: BP 105/62
[2022-12-12 20:00] VITALS: BP 124/53
[2022-12-13] VITALS: BP 126/58
[2022-12-13 08:00] VITALS: BP 113/54
[2022-12-13 08:02] LABS: HEMATOCRIT. 28.3 % (42.0-52.0); HEMOGLOBIN. 9.1 g/dL (14.0-18.0); MEAN CORPUSCULAR HEMOGLOBIN 31.3 pg (28.0-32.0); MEAN CORPUSCULAR VOLUME 96.7 fL (80.0-94.0); MEAN PLATELET VOLUME 8.6 fl (7.4-10.4); PLATELET 432 x1000/uL (130-400); RED BLOOD CELL COUNT 2.92 mill/uL (4.7-6.1); RED CELL DISTRIBUTION WIDTH 21.4 % (11.6-14.6)
[2022-12-13] MEDS: MIDODRINE HCL 5MG TABLET PO SCH ×3 (09:26→17:27)
[2022-12-13] MEDS: FOLIC ACID/VITAMIN B COMP W-C TABLET PO SCH (09:26)
[2022-12-13] MEDS: PANTOPRAZOLE SODIUM 40 MG/VIAL IV SCH ×2 (09:26→17:27)
[2022-12-13 12:00] VITALS: BP 130/75
[2022-12-13] MEDS: ACETAMINOPHEN 325MG TABLET PO PRN (15:31)
[2022-12-13 15:57] LABS: NUCLEATED RED BLOOD CELLS 2 /100 WBC
[2022-12-13 15:58] LABS: PLATELET ESTIMATE SLIGHTLY INCREASED
[2022-12-13 16:00] VITALS: BP 104/41
[2022-12-13] MEDS: MEROPENEM 1,000 MG in SODIUM CHLORIDE 0.9% 100 ML IV SCH (17:28)
[2022-12-13 20:00] VITALS: BP 117/62
[2022-12-14] VITALS (13 sets, daily range): BP systolic 101–181; BP diastolic 52–81
[2022-12-14] MEDS: MIDODRINE HCL 5MG TABLET PO SCH ×3 (09:00→17:23)
[2022-12-14] MEDS: PANTOPRAZOLE SODIUM 40 MG/VIAL IV SCH ×2 (12:46→17:22)
[2022-12-14] MEDS: MEROPENEM 1,000 MG in SODIUM CHLORIDE 0.9% 100 ML IV SCH (17:23)
[2022-12-14] MEDS: ACETAMINOPHEN 325MG TABLET PO PRN (20:16)
[2022-12-15] VITALS: BP 152/81
[2022-12-15 04:00] VITALS: BP 136/76
[2022-12-15 06:41] LABS: BASOPHILS % 0.3 % (0.0-2.0); EOSINOPHILS % 0.8 % (0.0-5.0); HEMATOCRIT. 27.7 % (42.0-52.0); LYMPHOCYTES % 25.5 % (20.0-50.0); MEAN CORPUSCULAR HEMOGLOBIN 31.6 pg (28.0-32.0); MEAN CORPUSCULAR VOLUME 97.3 fL (80.0-94.0); MONOCYTES % 13.6 % (2.0-8.0); NEUTROPHILS % 59.8 % (40.0-76.0); PLATELET 412 x1000/uL (130-400); RED BLOOD CELL COUNT 2.85 mill/uL (4.7-6.1); RED CELL DISTRIBUTION WIDTH 20.7 % (11.6-14.6)
[2022-12-15 08:00] VITALS: BP 80/23
[2022-12-15] MEDS: MIDODRINE HCL 5MG TABLET PO SCH ×3 (09:51→16:41)
[2022-12-15] MEDS: ACETAMINOPHEN 325MG TABLET PO PRN (09:51)
[2022-12-15] MEDS: PANTOPRAZOLE SODIUM 40 MG/VIAL IV SCH ×2 (10:40→17:59)
[2022-12-15 12:00] VITALS: BP 75/41
[2022-12-15 16:00] VITALS: BP 76/45
[2022-12-15] MEDS: GUAIFENESIN 200MG/10ML SUGAR FREE UDC PO PRN (16:40)
[2022-12-15 18:46] LABS: HEPATITIS B SURFACE ANTIGEN NEGATIVE
[2022-12-15 20:00] VITALS: BP 139/82
[2022-12-16] VITALS (18 sets, daily range): BP systolic 84–194; BP diastolic 50–95
[2022-12-16 07:02] LABS: HEMATOCRIT 26.8 % (42.0-52.0); HEMOGLOBIN 8.5 g/dL (14.0-18.0); MEAN CORPUSCULAR HEMOGLOBIN 30.9 pg (28.0-32.0); MEAN CORPUSCULAR VOLUME 96.8 fL (80.0-94.0); PLATELET 443 x1000/uL (130-400); RED BLOOD CELL COUNT 2.77 mill/uL (4.7-6.1); RED CELL DISTRIBUTION WIDTH 20.5 % (11.6-14.6)
[2022-12-16 08:23] LABS: PHOSPHORUS 2.1 mg/dL (2.5-4.9)
[2022-12-16] MEDS: MIDODRINE HCL 5MG TABLET PO SCH ×3 (09:23→18:28)
[2022-12-16] MEDS: PANTOPRAZOLE SODIUM 40 MG/VIAL IV SCH ×2 (09:43→18:26)
[2022-12-16] MEDS: GUAIFENESIN 200MG/10ML SUGAR FREE UDC PO PRN (13:50)
[2022-12-16] MEDS: EPOETIN ALFA-EPBX 4,000 UNIT/ML VIAL SUBCUT SCH (20:33)
[2022-12-17] VITALS: BP 137/54
[2022-12-17 04:00] VITALS: BP 114/51
[2022-12-17 08:00] VITALS: BP 166/51
[2022-12-17] MEDS: MIDODRINE HCL 5MG TABLET PO SCH ×3 (09:00→17:00)
[2022-12-17] MEDS: PANTOPRAZOLE SODIUM 40 MG/VIAL IV SCH ×2 (10:07→17:24)
[2022-12-17 12:00] VITALS: BP 149/51
[2022-12-17 16:00] VITALS: BP 0/45
[2022-12-17] MEDS: GUAIFENESIN 200MG/10ML SUGAR FREE UDC PO PRN ×2 (17:37→23:34)
[2022-12-17 21:02] VITALS: BP 123/41
[2022-12-18] VITALS (8 sets, daily range): BP systolic 105–137; BP diastolic 44–85
[2022-12-18] MEDS: GUAIFENESIN 200MG/10ML SUGAR FREE UDC PO PRN ×2 (06:34→17:52)
[2022-12-18] MEDS: PANTOPRAZOLE SODIUM 40 MG/VIAL IV SCH ×2 (09:18→17:52)
[2022-12-18] MEDS: MIDODRINE HCL 5MG TABLET PO SCH ×3 (09:19→17:52)
[2022-12-18 09:42] LABS: HEMATOCRIT 23.3 % (42.0-52.0); HEMOGLOBIN 7.6 g/dL (14.0-18.0); MEAN CORPUSCULAR HEMOGLOBIN 31.3 pg (28.0-32.0); MEAN CORPUSCULAR VOLUME 96.5 fL (80.0-94.0); PLATELET 395 x1000/uL (130-400); RED BLOOD CELL COUNT 2.41 mill/uL (4.7-6.1); RED CELL DISTRIBUTION WIDTH 21.2 % (11.6-14.6)
[2022-12-18 09:52] LABS: PHOSPHORUS 1.5 mg/dL (2.5-4.9)
[2022-12-18] MEDS: EPOETIN ALFA-EPBX 4,000 UNIT/ML VIAL SUBCUT SCH (21:31)
[2022-12-19] VITALS: BP 129/63
[2022-12-19 04:00] VITALS: BP 133/69
[2022-12-19 08:00] VITALS: BP 151/62
[2022-12-19] MEDS: MIDODRINE HCL 5MG TABLET PO SCH ×3 (08:33→17:15)
[2022-12-19 12:00] VITALS: BP 133/55
[2022-12-19] MEDS: GUAIFENESIN 200MG/10ML SUGAR FREE UDC PO PRN (13:25)
[2022-12-19 16:00] VITALS: BP 147/77
[2022-12-19 20:00] VITALS: BP 135/60
[2022-12-20] VITALS (18 sets, daily range): BP systolic 91–144; BP diastolic 38–87
[2022-12-20 00:37] LABS: HEPATITIS B SURFACE ANTIGEN NEGATIVE
[2022-12-20 06:57] LABS: BASOPHILS % 0.4 % (0.0-2.0); EOSINOPHILS % 0.9 % (0.0-5.0); HEMATOCRIT. 23.6 % (42.0-52.0); HEMOGLOBIN. 7.8 g/dL (14.0-18.0); LYMPHOCYTES % 21.6 % (20.0-50.0); MEAN CORPUSCULAR HEMOGLOBIN 31.7 pg (28.0-32.0); MEAN CORPUSCULAR VOLUME 95.9 fL (80.0-94.0); MEAN PLATELET VOLUME 8.1 fl (7.4-10.4); NEUTROPHILS % 63.1 % (40.0-76.0); PLATELET 429 x1000/uL (130-400); RED BLOOD CELL COUNT 2.46 mill/uL (4.7-6.1); RED CELL DISTRIBUTION WIDTH 21.5 % (11.6-14.6)
[2022-12-20 07:16] LABS: CHLORIDE 101 mEq/L (98-107)
[2022-12-20] MEDS: MIDODRINE HCL 5MG TABLET PO SCH ×2 (09:00→13:00)
[2022-12-20] MEDS: GUAIFENESIN 200MG/10ML SUGAR FREE UDC PO PRN (13:16)
[2022-12-20 21:30] LABS: HEMOGLOBIN 7.7 g/dL (14.0-18.0)
[2022-12-20] MEDS: EPOETIN ALFA-EPBX 4,000 UNIT/ML VIAL SUBCUT SCH (22:02)
[2022-12-21] VITALS: BP 109/40
[2022-12-21 01:33] LABS: HEMATOCRIT 23.1 % (42.0-52.0); HEMOGLOBIN 7.5 g/dL (14.0-18.0)
[2022-12-21 04:00] VITALS: BP 125/46
[2022-12-21 06:54] LABS: HEMOGLOBIN 7.6 g/dL (14.0-18.0); MEAN CORPUSCULAR HEMOGLOBIN 31.8 pg (28.0-32.0); MEAN CORPUSCULAR VOLUME 95.9 fL (80.0-94.0); PLATELET 389 x1000/uL (130-400); RED CELL DISTRIBUTION WIDTH 21.8 % (11.6-14.6)
[2022-12-21 08:00] VITALS: BP 139/49
[2022-12-21] MEDS: MIDODRINE HCL 5MG TABLET PO SCH ×3 (08:50→17:00)
[2022-12-21 12:00] VITALS: BP 155/68
[2022-12-21 13:06] LABS: HEMATOCRIT 24.5 % (42.0-52.0); HEMOGLOBIN 7.9 g/dL (14.0-18.0)
[2022-12-21] MEDS: PANTOPRAZOLE 40MG DR TABLET PO SCH ×2 (15:39→21:00)
[2022-12-21 16:00] VITALS: BP 139/54
[2022-12-21 18:55] LABS: HEMATOCRIT 23.1 % (42.0-52.0); HEMOGLOBIN 7.5 g/dL (14.0-18.0)
[2022-12-21] MEDS: METRONIDAZOLE 500 MG PREMIX 100 ML IV SCH (19:01)
[2022-12-21 22:38] VITALS: BP 132/51
[2022-12-22 01:08] LABS: HEMATOCRIT 22.4 % (42.0-52.0); HEMOGLOBIN 7.3 g/dL (14.0-18.0)
[2022-12-22] MEDS: METRONIDAZOLE 500 MG PREMIX 100 ML IV SCH ×3 (06:00→22:35)
[2022-12-22 09:27] LABS: HEMATOCRIT 22.8 % (42.0-52.0); HEMOGLOBIN 7.5 g/dL (14.0-18.0)
[2022-12-22] MEDS: MIDODRINE HCL 5MG TABLET PO SCH ×3 (09:37→16:23)
[2022-12-22 11:00] VITALS: BP 116/41
[2022-12-22 12:00] VITALS: BP 99/53
[2022-12-22 16:00] VITALS: BP 110/37
[2022-12-22 20:51] VITALS: BP 115/79
[2022-12-22] MEDS: PANTOPRAZOLE 40MG DR TABLET PO SCH (22:37)
[2022-12-23] VITALS (16 sets, daily range): BP systolic 95–146; BP diastolic 39–86
[2022-12-23 00:52] LABS: HEMATOCRIT 24.8 % (42.0-52.0); HEMOGLOBIN 8.1 g/dL (14.0-18.0)
[2022-12-23] MEDS: METRONIDAZOLE 500 MG PREMIX 100 ML IV SCH ×3 (05:50→21:49)
[2022-12-23] MEDS: PANTOPRAZOLE 40MG DR TABLET PO SCH ×2 (05:52→21:48)
[2022-12-23 06:43] LABS: BASOPHILS % 0.5 % (0.0-2.0); EOSINOPHILS % 1.3 % (0.0-5.0); HEMATOCRIT. 23.5 % (42.0-52.0); HEMOGLOBIN. 7.9 g/dL (14.0-18.0); LYMPHOCYTES % 23.6 % (20.0-50.0); MEAN CORPUSCULAR VOLUME 97.7 fL (80.0-94.0); MEAN PLATELET VOLUME 8.2 fl (7.4-10.4); MONOCYTES % 13.3 % (2.0-8.0); NEUTROPHILS % 61.3 % (40.0-76.0); PLATELET 429 x1000/uL (130-400); RED CELL DISTRIBUTION WIDTH 23.1 % (11.6-14.6)
[2022-12-23 08:58] LABS: CHLORIDE 103 mEq/L (98-107)
[2022-12-23] MEDS: MIDODRINE HCL 5MG TABLET PO SCH ×3 (12:15→19:58)
[2022-12-23] MEDS: ACETAMINOPHEN 325MG TABLET PO PRN (12:15)
[2022-12-24] VITALS: BP 173/59
[2022-12-24 04:00] VITALS: BP 149/70
[2022-12-24] MEDS: METRONIDAZOLE 500 MG PREMIX 100 ML IV SCH ×2 (05:21→15:10)
[2022-12-24] MEDS: ACETAMINOPHEN 325MG TABLET PO PRN (05:21)
[2022-12-24 06:47] LABS: CHLORIDE 102 mEq/L (98-107)
[2022-12-24] MEDS: PANTOPRAZOLE 40MG DR TABLET PO SCH ×2 (06:55→20:15)
[2022-12-24 06:57] LABS: BASOPHILS % 0.3 % (0.0-2.0); EOSINOPHILS % 1.2 % (0.0-5.0); HEMATOCRIT. 22.5 % (42.0-52.0); HEMOGLOBIN. 7.4 g/dL (14.0-18.0); LYMPHOCYTES % 13.4 % (20.0-50.0); MEAN CORPUSCULAR HEMOGLOBIN 32.3 pg (28.0-32.0); MEAN CORPUSCULAR VOLUME 98.5 fL (80.0-94.0); MEAN PLATELET VOLUME 8.2 fl (7.4-10.4); MONOCYTES % 13.7 % (2.0-8.0); NEUTROPHILS % 71.4 % (40.0-76.0); PLATELET 383 x1000/uL (130-400); RED BLOOD CELL COUNT 2.29 mill/uL (4.7-6.1); RED CELL DISTRIBUTION WIDTH 23.1 % (11.6-14.6)
[2022-12-24 08:00] VITALS: BP 146/65
[2022-12-24] MEDS: MIDODRINE HCL 5MG TABLET PO SCH ×3 (09:00→17:00)
[2022-12-24 12:00] VITALS: BP 150/66
[2022-12-24 16:00] VITALS: BP 141/69
[2022-12-24 20:00] VITALS: BP 125/57
[2022-12-25] VITALS (12 sets, daily range): BP systolic 108–166; BP diastolic 51–65
[2022-12-25 00:22] LABS: HEPATITIS B SURFACE ANTIGEN NEGATIVE
[2022-12-25] MEDS: PANTOPRAZOLE 40MG DR TABLET PO SCH (05:48)
[2022-12-25 06:45] LABS: BASOPHILS % 0.4 % (0.0-2.0); EOSINOPHILS % 1.1 % (0.0-5.0); HEMATOCRIT. 22.4 % (42.0-52.0); HEMOGLOBIN. 7.5 g/dL (14.0-18.0); LYMPHOCYTES % 18.3 % (20.0-50.0); MEAN CORPUSCULAR HEMOGLOBIN 32.9 pg (28.0-32.0); MEAN CORPUSCULAR VOLUME 98.6 fL (80.0-94.0); MEAN PLATELET VOLUME 8.5 fl (7.4-10.4); MONOCYTES % 13.5 % (2.0-8.0); NEUTROPHILS % 66.7 % (40.0-76.0); PLATELET 380 x1000/uL (130-400); RED BLOOD CELL COUNT 2.27 mill/uL (4.7-6.1); RED CELL DISTRIBUTION WIDTH 23.5 % (11.6-14.6)
[2022-12-25 06:53] LABS: CHLORIDE 103 mEq/L (98-107)
[2022-12-25] MEDS: MIDODRINE HCL 5MG TABLET PO SCH ×3 (09:10→17:48)
[2022-12-25] MEDS: DOCUSATE SODIUM SUGAR FREE 100MG/10ML UDC PEG SCH ×2 (14:00→17:00)
[2022-12-26] VITALS: BP 102/21
[2022-12-26] MEDS: PANTOPRAZOLE 40MG DR TABLET PO SCH ×3 (00:56→21:01)
[2022-12-26 06:39] LABS: HEMATOCRIT. 23.3 % (42.0-52.0); HEMOGLOBIN. 7.5 g/dL (14.0-18.0); MEAN CORPUSCULAR HEMOGLOBIN 31.5 pg (28.0-32.0); MEAN CORPUSCULAR VOLUME 97.9 fL (80.0-94.0); MEAN PLATELET VOLUME 8.1 fl (7.4-10.4); PLATELET 389 x1000/uL (130-400); RED BLOOD CELL COUNT 2.38 mill/uL (4.7-6.1); RED CELL DISTRIBUTION WIDTH 23.5 % (11.6-14.6)
[2022-12-26 06:52] LABS: CHLORIDE 103 mEq/L (98-107)
[2022-12-26 08:00] VITALS: BP 93/23
[2022-12-26] MEDS: DOCUSATE SODIUM SUGAR FREE 100MG/10ML UDC PEG SCH ×2 (10:13→17:00)
[2022-12-26] MEDS: MIDODRINE HCL 5MG TABLET PO SCH ×3 (10:13→17:00)
[2022-12-26 12:00] VITALS: BP 105/33
[2022-12-26 13:33] LABS: PLATELET ESTIMATE NORMAL
[2022-12-26 16:00] VITALS: BP 112/78
[2022-12-26 16:07] VITALS: BP 105/70
[2022-12-26 20:00] VITALS: BP 130/54
[2022-12-27] VITALS (12 sets, daily range): BP systolic 111–160; BP diastolic 44–93
[2022-12-27] MEDS: LANSOPRAZOLE 30MG DR CAPSULE GT SCH ×3 (00:41→21:28)
[2022-12-27 08:15] LABS: HEMATOCRIT. 22.4 % (42.0-52.0); HEMOGLOBIN. 7.3 g/dL (14.0-18.0); MEAN CORPUSCULAR HEMOGLOBIN 32.2 pg (28.0-32.0); MEAN CORPUSCULAR VOLUME 98.9 fL (80.0-94.0); PLATELET 372 x1000/uL (130-400); RED BLOOD CELL COUNT 2.27 mill/uL (4.7-6.1); RED CELL DISTRIBUTION WIDTH 23.3 % (11.6-14.6)
[2022-12-27 08:36] LABS: CHLORIDE 103 mEq/L (98-107)
[2022-12-27] MEDS: MIDODRINE HCL 5MG TABLET PO SCH ×3 (08:37→16:56)
[2022-12-27] MEDS: DOCUSATE SODIUM SUGAR FREE 100MG/10ML UDC PEG SCH ×2 (08:38→17:17)
[2022-12-28] VITALS: BP 114/51
[2022-12-28 00:54] LABS: PLATELET ESTIMATE NORMAL
[2022-12-28 04:00] VITALS: BP 129/46
[2022-12-28 08:00] VITALS: BP 131/57
[2022-12-28] MEDS: DOCUSATE SODIUM SUGAR FREE 100MG/10ML UDC PEG SCH ×2 (09:00→17:00)
[2022-12-28] MEDS: LANSOPRAZOLE 30MG DR CAPSULE GT SCH ×2 (10:10→21:53)
[2022-12-28] MEDS: MIDODRINE HCL 5MG TABLET PO SCH ×3 (10:11→19:10)
[2022-12-28] MEDS: ACETAMINOPHEN 325MG TABLET PO PRN (11:41)
[2022-12-28 12:00] VITALS: BP 170/81
[2022-12-28 16:00] VITALS: BP 117/43
[2022-12-28] MEDS: GUAIFENESIN 200MG/10ML SUGAR FREE UDC PO PRN (19:10)
[2022-12-28 21:46] VITALS: BP 146/44
[2022-12-29 08:00] VITALS: BP 153/60
[2022-12-29 12:00] VITALS: BP 141/73
[2022-12-29] MEDS: LANSOPRAZOLE 30MG DR CAPSULE GT SCH ×2 (13:05→21:30)
[2022-12-29] MEDS: DOCUSATE SODIUM SUGAR FREE 100MG/10ML UDC PEG SCH (13:05)
[2022-12-29] MEDS: MIDODRINE HCL 5MG TABLET PO SCH (13:05)
[2022-12-29] MEDS: SODIUM HYPOCHLORITE (0.25%) 480ML SOLUTION (HALF STRENGTH) TOP SCH (13:18)
[2022-12-29] MEDS: ACETAMINOPHEN 325MG TABLET PO PRN (14:21)
[2022-12-29 16:00] VITALS: BP 155/72
[2022-12-29 17:51] LABS: HEPATITIS B SURFACE ANTIGEN NEGATIVE
[2022-12-29 20:00] VITALS: BP 140/62
[2022-12-29] MEDS: ALBUMIN HUMAN 25GM/100ML (25%) IV SCH (21:31)
[2022-12-30] VITALS (14 sets, daily range): BP systolic 114–186; BP diastolic 42–85
[2022-12-30] MEDS: ALBUMIN HUMAN 25GM/100ML (25%) IV SCH ×3 (04:04→16:52)
[2022-12-30 06:41] LABS: BASOPHILS % 0.5 % (0.0-2.0); EOSINOPHILS % 1.1 % (0.0-5.0); LYMPHOCYTES % 23.6 % (20.0-50.0); MEAN CORPUSCULAR HEMOGLOBIN 32.4 pg (28.0-32.0); MEAN CORPUSCULAR VOLUME 97.3 fL (80.0-94.0); MEAN PLATELET VOLUME 8.3 fl (7.4-10.4); MONOCYTES % 13.5 % (2.0-8.0); NEUTROPHILS % 61.3 % (40.0-76.0); PLATELET 334 x1000/uL (130-400); RED BLOOD CELL COUNT 1.98 mill/uL (4.7-6.1); RED CELL DISTRIBUTION WIDTH 22.1 % (11.6-14.6)
[2022-12-30 06:55] LABS: HEMATOCRIT. 19.2 % (42.0-52.0); HEMOGLOBIN. 6.4 g/dL (14.0-18.0)
[2022-12-30] MEDS: MIDODRINE HCL 5MG TABLET PO SCH ×3 (08:56→17:00)
[2022-12-30] MEDS: LANSOPRAZOLE 30MG DR CAPSULE GT SCH ×2 (09:01→22:05)
[2022-12-30] MEDS: DOCUSATE SODIUM SUGAR FREE 100MG/10ML UDC PEG SCH ×2 (09:02→18:24)
[2022-12-30] MEDS: SODIUM HYPOCHLORITE (0.25%) 480ML SOLUTION (HALF STRENGTH) TOP SCH (09:02)
[2022-12-30] MEDS ORDERED: VITAMINS A AND D OINT TUBE TOP PRN (11:00)
[2022-12-30 15:03] LABS: CHLORIDE 101 mEq/L (98-107)
[2022-12-30 15:13] LABS: PHOSPHORUS 2.4 mg/dL (2.5-4.9)
[2022-12-31] VITALS (7 sets, daily range): BP systolic 119–199; BP diastolic 45–80
[2022-12-31 06:33] LABS: BASOPHILS % 0.1 % (0.0-2.0); EOSINOPHILS % 0.2 % (0.0-5.0); HEMOGLOBIN. 9.7 g/dL (14.0-18.0); LYMPHOCYTES % 13.8 % (20.0-50.0); MEAN CORPUSCULAR HEMOGLOBIN 32.1 pg (28.0-32.0); MEAN CORPUSCULAR VOLUME 96.1 fL (80.0-94.0); MEAN PLATELET VOLUME 8.3 fl (7.4-10.4); MONOCYTES % 11.9 % (2.0-8.0); PLATELET 361 x1000/uL (130-400); RED BLOOD CELL COUNT 3.02 mill/uL (4.7-6.1); RED CELL DISTRIBUTION WIDTH 21.2 % (11.6-14.6)
[2022-12-31] MEDS: LANSOPRAZOLE 30MG DR CAPSULE GT SCH (08:50)
[2022-12-31] MEDS: SODIUM HYPOCHLORITE (0.25%) 480ML SOLUTION (HALF STRENGTH) TOP SCH (08:51)
[2022-12-31] MEDS: MIDODRINE HCL 5MG TABLET PO SCH ×2 (08:51→13:00)
[2022-12-31] MEDS: DOCUSATE SODIUM SUGAR FREE 100MG/10ML UDC PEG SCH (08:52)
[2022-12-31] MEDS ORDERED: DOCUSATE SODIUM 250MG CAPSULE PO PRN (12:30)
[2022-12-31] MEDS ORDERED: POTASSIUM CHLORIDE 20MEQ TABLET SR PO SCH (13:00)
== END 2022-12-31 18:38 | DRG 853 ==
LOC: ER 12:52 → CVICU 15:00 → 8WST 11-13 15:40 → 6EST 12-01 17:37 → 5WST 12-05 13:44
PROVIDERS: ADMIT Hospitalist; ATTEND Hospitalist
PROC: 06HY33Z Insertion of Infusion Device into Lower Vein, Percutaneous Approach (ICD-10-PCS; 2022-11-06)
PROC: B54BZZA Ultrasonography of Right Lower Extremity Veins, Guidance (ICD-10-PCS; 2022-11-06)
PROC: 02HV33Z Insertion of Infusion Device into Superior Vena Cava, Percutaneous Approach (ICD-10-PCS; 2022-11-07)
PROC: B548ZZA Ultrasonography of Superior Vena Cava, Guidance (ICD-10-PCS; 2022-11-07)
PROC: 5A1D70Z Performance of Urinary Filtration, Intermittent, Less than 6 Hours Per Day (ICD-10-PCS; 2022-11-08)
PROC: 5A1D70Z Performance of Urinary Filtration, Intermittent, Less than 6 Hours Per Day (ICD-10-PCS; 2022-11-12)
PROC: 5A1D70Z Performance of Urinary Filtration, Intermittent, Less than 6 Hours Per Day (ICD-10-PCS; 2022-11-14)
PROC: 5A1D70Z Performance of Urinary Filtration, Intermittent, Less than 6 Hours Per Day (ICD-10-PCS; 2022-11-17)
PROC: 5A1D70Z Performance of Urinary Filtration, Intermittent, Less than 6 Hours Per Day (ICD-10-PCS; 2022-11-19)
PROC: 0DB78ZX Excision of Stomach, Pylorus, Via Natural or Artificial Opening Endoscopic, Diagnostic (ICD-10-PCS; 2022-11-21)
PROC: 0DH63UZ Insertion of Feeding Device into Stomach, Percutaneous Approach (ICD-10-PCS; 2022-11-21)
PROC: 30233N1 Transfusion of Nonautologous Red Blood Cells into Peripheral Vein, Percutaneous Approach (ICD-10-PCS; 2022-11-21)
PROC: 5A1D70Z Performance of Urinary Filtration, Intermittent, Less than 6 Hours Per Day (ICD-10-PCS; 2022-11-21)
PROC: 5A1D70Z Performance of Urinary Filtration, Intermittent, Less than 6 Hours Per Day (ICD-10-PCS; 2022-11-25)
PROC: 5A1D70Z Performance of Urinary Filtration, Intermittent, Less than 6 Hours Per Day (ICD-10-PCS; 2022-11-27)
PROC: 5A1D70Z Performance of Urinary Filtration, Intermittent, Less than 6 Hours Per Day (ICD-10-PCS; 2022-11-29)
PROC: 5A1D70Z Performance of Urinary Filtration, Intermittent, Less than 6 Hours Per Day (ICD-10-PCS; 2022-12-02)
PROC: 0KBP0ZZ Excision of Left Hip Muscle, Open Approach (ICD-10-PCS; 2022-12-03)
PROC: 0KBN0ZZ Excision of Right Hip Muscle, Open Approach (ICD-10-PCS; 2022-12-03)
PROC: 0JB90ZZ Excision of Buttock Subcutaneous Tissue and Fascia, Open Approach (ICD-10-PCS; 2022-12-03)
PROC: 5A1D70Z Performance of Urinary Filtration, Intermittent, Less than 6 Hours Per Day (ICD-10-PCS; 2022-12-04)
PROC: 5A1D70Z Performance of Urinary Filtration, Intermittent, Less than 6 Hours Per Day (ICD-10-PCS; 2022-12-06)
PROC: 0KBP0ZZ Excision of Left Hip Muscle, Open Approach (ICD-10-PCS; 2022-12-09)
PROC: 0KBN0ZZ Excision of Right Hip Muscle, Open Approach (ICD-10-PCS; 2022-12-09)
PROC: 0JB90ZZ Excision of Buttock Subcutaneous Tissue and Fascia, Open Approach (ICD-10-PCS; 2022-12-09)
PROC: 5A1D70Z Performance of Urinary Filtration, Intermittent, Less than 6 Hours Per Day (ICD-10-PCS; 2022-12-09)
PROC: 5A1D70Z Performance of Urinary Filtration, Intermittent, Less than 6 Hours Per Day (ICD-10-PCS; 2022-12-11)
PROC: 5A1D70Z Performance of Urinary Filtration, Intermittent, Less than 6 Hours Per Day (ICD-10-PCS; 2022-12-14)
PROC: 5A1D70Z Performance of Urinary Filtration, Intermittent, Less than 6 Hours Per Day (ICD-10-PCS; 2022-12-16)
PROC: 5A1D70Z Performance of Urinary Filtration, Intermittent, Less than 6 Hours Per Day (ICD-10-PCS; 2022-12-18)
PROC: 0LBP0ZZ Excision of Left Lower Leg Tendon, Open Approach (ICD-10-PCS; principal; 2022-12-19)
PROC: 5A1D70Z Performance of Urinary Filtration, Intermittent, Less than 6 Hours Per Day (ICD-10-PCS; 2022-12-20)
PROC: 5A1D70Z Performance of Urinary Filtration, Intermittent, Less than 6 Hours Per Day (ICD-10-PCS; 2022-12-23)
PROC: 5A1D70Z Performance of Urinary Filtration, Intermittent, Less than 6 Hours Per Day (ICD-10-PCS; 2022-12-25)
PROC: 5A1D70Z Performance of Urinary Filtration, Intermittent, Less than 6 Hours Per Day (ICD-10-PCS; 2022-12-27)
PROC: 0LBW0ZZ Excision of Left Foot Tendon, Open Approach (ICD-10-PCS; 2022-12-28)
PROC: 0LBP0ZZ Excision of Left Lower Leg Tendon, Open Approach (ICD-10-PCS; 2022-12-28)
PROC: 0LBN0ZZ Excision of Right Lower Leg Tendon, Open Approach (ICD-10-PCS; 2022-12-28)
PROC: 0JPT3XZ Removal of Tunneled Vascular Access Device from Trunk Subcutaneous Tissue and Fascia, Percutaneous Approach (ICD-10-PCS; 2022-12-30)
PROC: 5A1D70Z Performance of Urinary Filtration, Intermittent, Less than 6 Hours Per Day (ICD-10-PCS; 2022-12-30)
DX: A41.51 Sepsis due to Escherichia coli [E. coli] (principal); E43 Unspecified severe protein-calorie malnutrition; L89.314 Pressure ulcer of right buttock, stage 4; L89.323 Pressure ulcer of left buttock, stage 3; J69.0 Pneumonitis due to inhalation of food and vomit; L89.154 Pressure ulcer of sacral region, stage 4; N18.6 End stage renal disease; J96.01 Acute respiratory failure with hypoxia; I50.33 Acute on chronic diastolic (congestive) heart failure; R65.21 Severe sepsis with septic shock; G93.41 Metabolic encephalopathy; K29.71 Gastritis, unspecified, with bleeding; Z68.1 Body mass index [BMI] 19.9 or less, adult; I13.2 Hypertensive heart and chronic kidney disease with heart failure and with stage 5 chronic kidney disease, or end stage renal disease; L03.90 Cellulitis, unspecified; E11.22 Type 2 diabetes mellitus with diabetic chronic kidney disease; M48.07 Spinal stenosis, lumbosacral region; M54.30 Sciatica, unspecified side; E87.6 Hypokalemia; K80.20 Calculus of gallbladder without cholecystitis without obstruction; N40.1 Benign prostatic hyperplasia with lower urinary tract symptoms; E11.51 Type 2 diabetes mellitus with diabetic peripheral angiopathy without gangrene; D63.1 Anemia in chronic kidney disease; I49.40 Unspecified premature depolarization; B95.7 Other staphylococcus as the cause of diseases classified elsewhere; Z20.822 Contact with and (suspected) exposure to COVID-19; K21.9 Gastro-esophageal reflux disease without esophagitis; R13.10 Dysphagia, unspecified; M48.061 Spinal stenosis, lumbar region without neurogenic claudication; F10.10 Alcohol abuse, uncomplicated; Z87.891 Personal history of nicotine dependence; Z79.899 Other long term (current) drug therapy; Z93.1 Gastrostomy status; Z74.01 Bed confinement status; Z68.21 Body mass index [BMI] 21.0-21.9, adult; Z99.2 Dependence on renal dialysis; Z86.73 Personal history of transient ischemic attack (TIA), and cerebral infarction without residual deficits
CPT/HCPCS: 36415; 36573; 36589; 36600; 71045; 72192; 74018; 74176; 80048; 80053; 80061; 80076; 80202; 82040; 82140; 82375; 82607; 82728; 82746; 82805; 82962; 83540; 83550; 83605; 83735; 83880; 84100; 84134; 84145; 84484; 85014; 85018; 85025; 85027; 85044; 86705; 86709; 86803; 86850; 86900; 86920; 87015; 87045; 87070; 87077; 87186; 87340; 87426; 87427; 87449; 88305; 89055; 90935; 92610; 93005; 93306; 93970; 97166; 99291; A6261; C1725; C9113; J0360; J0456; J0692; J0696; J0885; J1650; J2185; J2250; J2270; J2370; J2543; J2704; J2765; J3370; J3480; J3490; J7050; J7060; P9016; P9047